=== PATIENT | female | born 1985 | race Caucasian/White ===

== ENCOUNTER 2021-03-16 08:56 | Emergency (ER) | payer OTHER, SELFPAY ==
--- NOTE | ~2021-03-16 | XR_ITS ---
EXAMINATION: XR CHEST CLINICAL INFORMATION: Cough. COMPARISON: None TECHNIQUE: 2 views of the chest were obtained. FINDINGS: No significant abnormality is noted involving the heart, lungs, mediastinum, bony thorax or soft tissues. Numerous postsurgical clips are projecting at the right upper quadrant of the abdomen. XR/XR chest 2V IMPRESSION: No radiographic evidence of pneumonia. Numerous postsurgical clips are present at right upper quadrant of the abdomen.
[2021-03-16 09:10] VITALS: BP 111/68; PULSE 82; RESP 18; TEMP 36.9; O2SAT 99; BMI 26.6
[2021-03-16 09:59] LABS: Influenza A PCR NEGATIVE (Negative); Influenza B PCR NEGATIVE (Negative); Resp Syncy Virus RNA Qual PCR NEGATIVE (Negative); SARS COV2 PCR INHOUSE NEGATIVE (Negative)
--- NOTE | 2021-03-16 10:18 | ED.URI ---
HPI - URI/Sore Throat General Chief Complaint: Upper Respiratory Symptoms Stated Complaint: flu like symptoms Time Seen by Provider: 03/16/21 09:23 Source: patient Mode of arrival: ambulatory Limitations: no limitations History of Present Illness HPI Narrative: 35-year-old female here with complaints of cough, sneezing, rhinorrhea since Sunday. No shortness of breath, chest pain, fevers, chills, sore throat, abdominal pain, vomiting or diarrhea. 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 Not currently on any medication Related Data Allergies Allergy/AdvReac Type Severity Reaction Status Date / Time aspirin [ASA] Allergy Unknown CRAP Verified 03/16/21 09:10 BLOOD bee pollen [BEE STINGS] Allergy Unknown ANAPHYLAXIS Verified 03/16/21 09:10 duloxetine [From CYMBALTA] Allergy Unknown SWELLING Verified 03/16/21 09:10 hydromorphone [From DILAUDID] Allergy Unknown ITCHY, Verified 03/16/21 09:10 VOMIT morphine [MORPHINE] Allergy Unknown SICK Verified 03/16/21 09:10 naproxen [NAPROXEN] Allergy Unknown CRAP Verified 03/16/21 09:10 BLOOD pregabalin [From LYRICA] Allergy Unknown SWELLING Verified 03/16/21 09:10 SEAFOOD Allergy Unknown UNKNOWN Uncoded 02/05/20 19:08 Review of Systems Review of Systems: Yes all other systems are reviewed and are negative Constitutional: Constitutional: Reports no additional constitutional complaints, Denies body ache(s), Denies chills, Denies fever(s), Denies headache(s) and Denies weakness Eyes: Eyes: Reports no additional eye complaints and Denies change in vision ENT: Reports system reviewed and no additional complaints, except as documented, Denies dizziness, Denies headache(s), Denies nasal congestion, Reports nasal discharge and Denies neck pain Cardiovascular: Cardiovascular: Reports no additional cardiovascular complaints, Denies chest pain, Denies leg edema and Denies dyspnea Respiratory: Respiratory: Reports no additional respiratory complaints, Reports cough and Denies dyspnea Gastrointestinal: Gastrointestinal: Reports no additional gastrointestinal complaints, Denies abdominal pain, Denies diarrhea, Denies nausea and Denies vomiting Genitourinary: Genitourinary: Reports no additional female genitourinary complaints and Denies urinary incontinence Musculoskeletal: Musculoskeletal: Reports no additional musculoskeletal complaints, Denies back pain, Denies arthralgias, Denies joint swelling, Denies neck pain, Denies numbness and Denies tingling Integumentary/Breasts: Skin/Breast: Reports system reviewed and no additional complaints, except as docu and Denies rash Neurologic: Denies Abnormal speech present, Denies dizziness, Denies headache(s), Denies numbness, Denies tingling and Denies weakness PMFSH Past Medical History Attestation statement: The following information was validated with the patient. Source: old records reviewed and nursing notes reviewed Social History Social History Advance Directives: No Patient : No Physical Exam Vital Signs: Vital Signs: Last Vital Signs Temp 98.4 F 03/16/21 09:10 Pulse 82 03/16/21 09:10 Resp 18 03/16/21 09:10 BP 111/68 03/16/21 09:10 Pulse Ox 99 03/16/21 09:10 Body Mass Index 26.6 Const: General: cooperative, healthy appearing, comfortable and no acute distress Orientation/consciousness: patient oriented x3 Limitations: no limitations HENMT: Head: Yes normal to inspection Ears: hearing grossly normal bilaterally and TM's normal bilaterally General nose exam: Normal external nose present Face and sinus: Yes normal facial exam Mouth: Normal oral and palatal mucosa present Throat: Yes posterior oropharynx normal, Yes tonsils normal and Yes uvula midline Eyes: General: appearance normal, both eyes and all related structures Pupils: Equal, round and reactive pupils present Neck: Neck: Yes normal visual inspection Chest: Chest palpation & inspection: normal inspection of the chest Resp: Effort & Inspection: normal respiratory effort Auscultation: clear to auscultation bilaterally Cardio: Rate: regular rate Rhythm: regular rhythm Peripheral pulses: Peripheral pulses 2+ throughout GI: Inspection: Yes normal to inspection Palpation (GI): Soft to palpation and nontender Auscultation: normal bowel sounds Back/Spine/Pelvis: Thoracic/Lumbar Spine: thoracic and lumbar spine normal to inspection Skin: General skin exam: no rashes or lesions noted Neuro: General: patient oriented x3, no focal motor deficits and normal sensation to monofilament Cranial nerves: Yes Equal, round and reactive pupils present Cognition (Neuro): normal cognition Speech: No Abnormal speech present Gait exam (Neuro): Normal gait present Motor exam (neuro): 5/5 motor strength present throughout Extrem: General: Yes normal to inspection, Yes no pedal edema and Yes no calf tenderness Course Course Course Narrative: 35-year-old female here with complaints of cough, sneezing and rhinorrhea since Sunday. No shortness of breath or chest pain or fever. Patient is well-appearing. Afebrile. Exam is benign. Will check COVID screen. History of bronchitis so will check chest x-ray. 1020-COVID screen is negative. Chest x-ray shows no acute finding. Likely viral URI. Vitals are stable lungs are clear speaking full sentences. Will discharge home with supportive care. Reviewed worrisome signs and symptoms of when to return to the emergency department. Comfortable discharge home. MDM - URI/Sore Throat Differential Diagnosis Differential diagnosis: Likely upper respiratory infection Medical Records Attestation: I reviewed the patient's medical records. Lab Data Attestation: I reviewed the patient's lab results. Labs: Lab Results 03/16/21 Range/Units 09:15 Coronavirus (PCR) NEGATIVE (Negative) Influenza Type A (PCR) NEGATIVE (Negative) Influenza Type B (PCR) NEGATIVE (Negative) RSV RNA Qual (PCR) NEGATIVE (Negative) Imaging Data Chest x-ray: Attestation: I personally reviewed and interpreted this imaging study as follows: Radiologist's impression: EXAMINATION: XR CHEST CLINICAL INFORMATION: Cough. COMPARISON: None TECHNIQUE: 2 views of the chest were obtained. FINDINGS: No significant abnormality is noted involving the heart, lungs, mediastinum, bony thorax or soft tissues. Numerous postsurgical clips are projecting at the right upper quadrant of the abdomen. XR/XR chest 2V IMPRESSION: No radiographic evidence of pneumonia. Numerous postsurgical clips are present at right upper quadrant of the abdomen. Discharge Plan Discharge Clinical Impression: Upper respiratory infection Patient Disposition: Home, Self-Care Instructions: Upper Respiratory Infection (ED), Viral Syndrome (ED) Additional Instructions: Increase fluids, rest Take Motrin or Tylenol if able as needed for pain or fever Your COVID screen and chest x-ray are normal Seek additional care for shortness of breath, chest pain, fever greater than 100.4 Referrals: Physician,None [Primary Care Provider] - 2 days Stand Alone Forms: Work/School Release
== END 2021-03-16 10:44 | disposition home or self-care (01) ==
PROVIDERS: Emergency Provider Emergency Medicine
DX: J06.9 Acute upper respiratory infection, unspecified (principal); Z20.822 Contact with and (suspected) exposure to COVID-19
CPT/HCPCS: 0241U; 36415; 71046; 99283

== ENCOUNTER 2021-07-13 11:04 | Emergency (ER) | payer BC, OTHER, SELFPAY ==
--- NOTE | ~2021-07-13 | XR_ITS ---
EXAMINATION: XR RIBS, RIGHT CLINICAL INFORMATION: Right rib pain COMPARISON: Previous chest x-ray February 2021 TECHNIQUE: 3 views of the right ribs and one view of the chest were obtained. FINDINGS: Lungs are clear. No consolidation, pneumothorax, or pleural effusion. The cardiomediastinal silhouette and pulmonary vasculature are normal. There are surgical clips under the right hemidiaphragm Osseous structures are unremarkable. Ribs are intact. No fractures are identified. XR/XR ribs RT min 3V w CXR1V IMPRESSION: Normal-appearing ribs. No evidence for acute disease in the chest.
[2021-07-13 11:38] VITALS: BP 111/50; PULSE 72; RESP 18; TEMP 36.4; O2SAT 96; BMI 28.6
--- NOTE | 2021-07-13 11:58 | ED_ITS ---
HPI - General Adult General Chief complaint: General Medical Stated complaint: right side pain/lower abd pain Time Seen by Provider: 07/13/21 11:55 Source: patient Mode of arrival: ambulatory Limitations: no limitations History of Present Illness HPI narrative: 35-year-old female came in for evaluation of her right-sided a body ache. 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 No blunt trauma to the right side of the abdomen. Patient is here mainly to check on post surgery. Past surgical history is cholecystectomy, partial hepatic donation surgery, total hysterectomy. Related Data Allergies Allergy/AdvReac Type Severity Reaction Status Date / Time aspirin [ASA] Allergy Unknown CRAP Verified 07/13/21 11:41 BLOOD bee pollen [BEE STINGS] Allergy Unknown ANAPHYLAXIS Verified 07/13/21 11:41 duloxetine [From CYMBALTA] Allergy Unknown SWELLING Verified 07/13/21 11:41 hydromorphone [From DILAUDID] Allergy Unknown ITCHY, Verified 07/13/21 11:41 VOMIT morphine [MORPHINE] Allergy Unknown SICK Verified 07/13/21 11:41 naproxen [NAPROXEN] Allergy Unknown CRAP Verified 07/13/21 11:41 BLOOD pregabalin [From LYRICA] Allergy Unknown SWELLING Verified 07/13/21 11:41 SEAFOOD Allergy Unknown UNKNOWN Uncoded 02/05/20 19:08 Review of Systems Review of Systems: All other systems are reviewed and are negative Constitutional: Reports as per HPI and Reports no additional constitutional complaints Eyes: Reports as per HPI and Reports no additional eye complaints Reports system reviewed and no additional complaints, except as documented Cardiovascular: Reports as per HPI and Reports no additional cardiovascular complaints Respiratory: Reports as per HPI and Reports no additional respiratory complaints Gastrointestinal: Reports as per HPI and Reports no additional gastrointestinal complaints Genitourinary: Reports no additional female genitourinary complaints Musculoskeletal: Reports no additional musculoskeletal complaints Skin/Breast: Reports system reviewed and no additional complaints, except as docu Psychiatric: Reports no additional psychiatric complaints Endocrine: Reports no additional endocrine complaints Hematologic/Lymphatic: Reports no additional hematologic/lymphatic complaints Allergic/Immunologic: Reports no additional allergic/immunologic complaints Reports system reviewed and no additional complaints, except as documented and Reports Abnormal speech present [facility] Social History Social History Patient Tobacco Use Status: Former Tobacco user Smoked in Last 30 Days: No Use of substances other than those prescribed or required for medical reasons: No Advance Directives: No Advance Directives Information Provided: No Patient : No Physical Exam ED Vital Signs: Vital Signs - 24 hr 07/13/21 11:38 07/13/21 12:32 Temperature 97.6 F 97.8 F Pulse Rate 72 63 Respiratory Rate 18 16 Blood Pressure 111/50 L 108/48 L Pulse Oximetry 96 100 BMI result Body Mass Index 28.6 Vital signs have been reviewed as appeared to be correct. Blood pressure no rmal. Heart rate normal. Respiration rate normal. Temperature normal. Oxygen saturation normal. Appearance: Alert. Oriented X3. No acute distress. Head: Normal external exam. Normocephalic. Atraumatic. No Doe signs noted. No raccoon eyes noted Eyes: PERRLA. EOMI. Conjunctiva and sclera normal. Eyelids normal. ENT: TM's Normal. Pharynx normal. Uvula midline. Moist mucous membranes. No trismus noted. No drooling noted. No muffled voice noted. Neck: Normal inspection. Neck supple. FROM. No adenopathy. Thyroid Normal. No meningeal signs. No neck mass noted. CVS: Normal heart rate and rhythm. Heart sound normal. No murmurs noted. Pulses normal throughout. Respiratory: No respiratory distress. Painless inspiration. Breath sounds normal. No wheezes/rales/rhonchi noted. Chest nontender. No accessory muscle usage noted or decreased air movement noted. Abdomen: Soft and nontender. Bowel sounds normal in all 4 quadrants. No distention noted. No organomegaly noted. No visible injury noted. Back: No CVA tenderness. Full range of motion noted. Skin: Skin warm and dry. Normal skin color. Normal skin turgor. No rashes/lesions/lacerations noted. Extremities: No lower extremity edema. Extremities exhibit normal range of motion. Extremities nontender. Neuro: Oriented X 3. Cranial nerve exam: II-XII are grossly intact No motor deficit. No sensory deficit. Reflexes normal. Course Course Course Narrative: Assessment and plan. 35-year-old female came in for right-sided chest pain after exercising at the gym, patient status post partial liver donation 7 months ago was not exercising as per surgeon instruction, patient started to exercise recently when she started to have the pain, x-rays unremarkable, exam is unremarkable for point of tenderness, labs are unremarkable except slight elevation of LFTs, patient was instructed to call the transplant surgeon and arrange for the 9 months follow-up postoperative. Medical Decision Making Lab Data Lab results reviewed: Yes I reviewed the patient's lab results. Result diagrams: 07/13/21 12:29 07/13/21 12:29 Labs: Lab Results 07/13/21 07/13/21 Range/Units 12:29 12:29 WBC 4.1 L (4.8-10.8) X10*3/uL RBC 3.84 L (4.20-5.50) X10*6/uL Hgb 11.4 L (12.0-16.0) g/dl Hct 35.4 L (37.0-47.0) % MCV 92.2 (80.0-98.0) fL MCH 29.7 (27.0-33.0) pg MCHC 32.2 (31.0-35.0) g/dl RDW 13.8 (11.0-16.0) % Plt Count 202 (160-400) X10*3/uL MPV 8.9 L (9.4-12.3) fL Immature Gran % (Auto) 0.2 (0.0-0.4) % Neut % (Auto) 46.1 (45-73) % Lymph % (Auto) 40.5 H (20-40) % [place] % (Auto) 10.0 (2-11) % Eos % (Auto) 2.7 (0-4) % Baso % (Auto) 0.5 (0-2) % Lymph # (Auto) 1.7 (1.2-4.9) X10*3/uL [place] # (Auto) 0.4 (0.1-1.2) X10*3/uL Eos # (Auto) 0.1 (0.0-0.4) X10*3/uL Baso # (Auto) 0.0 (0.0-0.2) X10*3/uL Abs Immat Gran (auto) 0.01 (0.00-0.03) X10*3/uL Absolute Neuts (auto) 1.9 L (2.0-8.3) x10*3/uL Absolute Nucleated RBC 0.000 (0.0-0.012) X10*3/uL Nucleated RBC % (auto) 0.0 (0.0-0.2) /100WBC Sodium 142 (135-145) mmol/L Potassium 4.1 (3.3-5.1) mmol/L Chloride 107 (96-108) mmol/L Carbon Dioxide 31 H (22-29) mmol/L Anion Gap 8 L (12-20) BUN 7 L (9-16) mg/dL Creatinine 0.72 (0.5-1.4) mg/dL Estim Creat Clear Calc 99.6 Estimated GFR > 60 Random Glucose 85 (60-115) mg/dL Calcium 9.1 (8.4-10.2) mg/dL Total Bilirubin 0.5 (0.0-1.0) mg/dL Direct Bilirubin 0.2 (0.0-0.5) mg/dL AST 46 H (5-31) U/L ALT 54 H (0-31) U/L Alkaline Phosphatase 79 (39-117) U/L Total Protein 6.2 L (6.5-8.0) g/dL Albumin 4.0 (3.5-5.0) g/dL Lipase 34 (8-78) U/L Imaging Data Right ribs/chest x-ray.: Attestation: I personally reviewed and interpreted this imaging study as follows: Radiologist's impression: Normal-appearing ribs. No evidence for acute disease in the chest. Discharge Plan Discharge Clinical Impression: Chest wall muscle strain Patient Disposition: Home, Self-Care Instructions: Muscle Strain (DC) Referrals: Physician,None [Primary Care Provider] - 2 days Stand Alone Forms: Work/School Release
[2021-07-13 12:32] VITALS: BP 108/48; PULSE 63; RESP 16; TEMP 36.6; O2SAT 100
[2021-07-13 12:34] LABS: MANUAL DIFF FLAG NO
[2021-07-13 12:37] LABS: Basophils Percent Auto 0.5 % (0-2); Eosinophils Absolute Auto 0.1 X10*3/uL (0.0-0.4); Eosinophils Percent Auto 2.7 % (0-4); Hematocrit 35.4 % (37.0-47.0); Hemoglobin 11.4 g/dl (12.0-16.0); Imm Gran Abs Auto 0.01 X10*3/uL (0.00-0.03); Imm Gran Pct Auto 0.2 % (0.0-0.4); Lymphocytes Absolute Auto 1.7 X10*3/uL (1.2-4.9); Lymphocytes Percent Auto 40.5 % (20-40); Mean Corpuscular HGB Conc 32.2 g/dl (31.0-35.0); Mean Corpuscular Hemoglobin 29.7 pg (27.0-33.0); Mean Corpuscular Volume 92.2 fL (80.0-98.0); Mean Platelet Volume 8.9 fL (9.4-12.3); Monocytes Absolute Auto 0.4 X10*3/uL (0.1-1.2); Neutrophils Absolute Auto 1.9 x10*3/uL (2.0-8.3); Neutrophils Percent Auto 46.1 % (45-73); Platelet Count 202 X10*3/uL (160-400); Red Blood Count 3.84 X10*6/uL (4.20-5.50); Red Cell Distribution Width 13.8 % (11.0-16.0); White Blood Count 4.1 X10*3/uL (4.8-10.8)
[2021-07-13 12:52] LABS: Alanine Aminotransferase 54 U/L (0-31); Alkaline Phosphatase 79 U/L (39-117); Anion Gap 8 (12-20); Aspartate Amino Transferase 46 U/L (5-31); Bilirubin Direct 0.2 mg/dL (0.0-0.5); Bilirubin Total 0.5 mg/dL (0.0-1.0); Blood Urea Nitrogen 7 mg/dL (9-16); Calcium 9.1 mg/dL (8.4-10.2); Carbon Dioxide 31 mmol/L (22-29); Chloride 107 mmol/L (96-108); Creatinine Clr Calc Pharmacy 99.6; Estimated Glomerular Filt Rate > 60; Glucose Random 85 mg/dL (60-115); Lipase 34 U/L (8-78); Potassium 4.1 mmol/L (3.3-5.1); Sodium 142 mmol/L (135-145); Total Protein 6.2 g/dL (6.5-8.0)
== END 2021-07-13 14:11 | disposition home or self-care (01) ==
PROVIDERS: Emergency Provider Emergency Medicine
DX: Z52.6 Liver donor (principal); S29.011A Strain of muscle and tendon of front wall of thorax, initial encounter; X50.3XXA Overexertion from repetitive movements, initial encounter; Y93.B9 Activity, other involving muscle strengthening exercises; Y92.39 Other specified sports and athletic area as the place of occurrence of the external cause; Y99.9 Unspecified external cause status
CPT/HCPCS: 36415; 71101; 80048; 80076; 83690; 85025; 99283; 99284

== ENCOUNTER 2021-11-01 23:15 | Emergency (ER) | payer MEDICAID, SELFPAY ==
[2021-11-02 00:15] VITALS: BP 122/64; PULSE 69; RESP 18; TEMP 36.6; O2SAT 98; BMI 30.5
[2021-11-02 01:10] LABS: Mean Corpuscular HGB Conc 33.3 g/dl (31.0-35.0); Mean Platelet Volume 9.2 fL (9.4-12.3); Platelet Count 213 X10*3/uL (160-400); Red Blood Count 3.87 X10*6/uL (4.20-5.50); Red Cell Distribution Width 12.9 % (11.0-16.0); White Blood Count 4.8 X10*3/uL (4.8-10.8)
--- NOTE | 2021-11-02 01:23 | ED.GENADULT ---
HPI - General Adult General Chief complaint: General Medical Stated complaint: post surgery concerns Time Seen by Provider: 11/02/21 01:18 Source: patient Mode of arrival: ambulatory Limitations: no limitations History of Present Illness HPI narrative: Patient comes to the emergency room complaining of new onset depression. Patient states it has been going on for several weeks. The last 2 weeks, patient has been feeling depressed, no anxiety, no suicidal or homicidal ideation. Patient states that about 1 year she donated part of her liver. Patient never had her follow-up checkup and she is concerned that this may be liver related. Patient has no abdominal pain, scar healed well. Related Data Allergies Allergy/AdvReac Type Severity Reaction Status Date / Time aspirin [ASA] Allergy Unknown CRAP Verified 07/13/21 11:41 BLOOD bee pollen [BEE STINGS] Allergy Unknown ANAPHYLAXIS Verified 07/13/21 11:41 duloxetine [From CYMBALTA] Allergy Unknown SWELLING Verified 07/13/21 11:41 hydromorphone [From DILAUDID] Allergy Unknown ITCHY, Verified 07/13/21 11:41 VOMIT morphine [MORPHINE] Allergy Unknown SICK Verified 07/13/21 11:41 naproxen [NAPROXEN] Allergy Unknown CRAP Verified 07/13/21 11:41 BLOOD pregabalin [From LYRICA] Allergy Unknown SWELLING Verified 07/13/21 11:41 SEAFOOD Allergy Unknown UNKNOWN Uncoded 02/05/20 19:08 Review of Systems Review of Systems: Constitutional : No Weight loss, No Fever, No Chills, No Night Sweats, complaining fatigue ENT/Mouth : No Hearing loss, No Ear Pain, No Nasal Congestion, No Sinus Pain, No Hoarseness, No sore throat, No Rhinorrhea, No Swallowing Difficulty Eyes: No Eye Pain, No Swelling, No Redness, No Foreign Body, No Discharge, No Vision Changes Cardiovascular : No Chest Pain, No SOB, No Dyspnea on Exertion, No Orthopnea, No Edema, No Palpitations Respiratory : No Cough, No Sputum, No Wheezing, No Smoke Exposure, No Dyspnea Gastrointestinal : No Nausea, No Vomiting, No Diarrhea, No Constipation, No abdominal Pain, No Hematochezia, No Melena Genitourinary : no irregular bleeding, No Dysuria, No Urinary Frequency, No Hematuria, No Urinary Incontinence, No Urgency, No Flank Pain, No Urinary Flow Changes, No Hesitancy Musculoskeletal : No joint pain, No Myalgias, No Joint Swelling Skin : No Skin Lesions, No rash Neuro : No Weakness, No Numbness, No Paresthesias, No Loss of Consciousness, No Dizziness, No Headache Psych : No Anxiety/Panic, complaining of feeling depressed, No SI/HI/AH/VH, No Social Issues, Heme/Lymph: No Bruising, No Bleeding,No Lymphadenopathy Endocrine : No Polyuria, No Polydipsia, No Temperature Intolerance [facility] Social History Social History Patient Tobacco Use Status: Former Tobacco user Advance Directives: No Physical Exam ED Vital Signs: Vital Signs - 24 hr 11/02/21 00:15 Temperature 97.8 F Pulse Rate 69 Respiratory Rate 18 Blood Pressure 122/64 Pulse Oximetry 98 Oxygen Delivery Method Room Air BMI result Body Mass Index 30.5 Const Other: Appearance: Alert. Oriented X3. No acute distress. Eyes: Pupils equal, round and reactive to light. ENT: Pharynx normal. Neck: Normal inspection. Neck supple. No lymph nodes noted. No crepitus CVS: Normal heart rate and rhythm. Pulses normal. Normal S1 and S2 Respiratory: No respiratory distress. Breath sounds normal. No Wheezing. No rales Abdomen: Soft and nontender. No rigidity. No distention. Skin: Skin warm and dry. Normal skin color. Normal skin turgor. Extremities: No lower extremity edema. No Lacerations. No Rash Neuro: Oriented X 3. No motor deficit. No sensory deficit. Moving all extremities. No slurred speech. CN 2 through 12 grossly intact Psych: calm, cooperative, normal affect Course Course Course Narrative: Patient's labs are pending. LFT stable. Patient was given resources for outpatient therapy Medical Decision Making Lab Data Result diagrams: 11/02/21 01:00 11/02/21 01:00 Labs: Lab Results 11/02/21 11/02/21 Range/Units 01:00 01:00 WBC 4.8 (4.8-10.8) X10*3/uL RBC 3.87 L (4.20-5.50) X10*6/uL Hgb 12.0 (12.0-16.0) g/dl Hct 36.0 L (37.0-47.0) % MCV 93.0 (80.0-98.0) fL MCH 31.0 (27.0-33.0) pg MCHC 33.3 (31.0-35.0) g/dl RDW 12.9 (11.0-16.0) % Plt Count 213 (160-400) X10*3/uL MPV 9.2 L (9.4-12.3) fL Absolute Nucleated RBC 0.000 (0.0-0.012) X10*3/uL Nucleated RBC % (auto) 0.0 (0.0-0.2) /100WBC Sodium 142 (135-145) mmol/L Potassium 4.0 (3.3-5.1) mmol/L Chloride 108 (96-108) mmol/L Carbon Dioxide 28 (22-29) mmol/L Anion Gap 10 L (12-20) BUN 9 (9-16) mg/dL Creatinine 0.76 (0.5-1.4) mg/dL Estim Creat Clear Calc 96.6 Estimated GFR > 60 Random Glucose 90 (60-115) mg/dL Calcium 9.0 (8.4-10.2) mg/dL Total Bilirubin 0.4 (0.0-1.0) mg/dL AST 30 (5-31) U/L ALT 33 H (0-31) U/L Alkaline Phosphatase 58 D (39-117) U/L Total Protein 6.7 (6.5-8.0) g/dL Albumin 4.1 (3.5-5.0) g/dL Discharge Plan Discharge Clinical Impression: Depression Patient Disposition: Home, Self-Care Instructions: Depression (ED) Additional Instructions: Please follow-up with your primary care physician tomorrow. If you have any worsening or new symptoms, please return to the emergency room or call 911
[2021-11-02 01:42] LABS: Alanine Aminotransferase 33 U/L (0-31); Albumin Level 4.1 g/dL (3.5-5.0); Alkaline Phosphatase 58 U/L (39-117); Anion Gap 10 (12-20); Aspartate Amino Transferase 30 U/L (5-31); Bilirubin Total 0.4 mg/dL (0.0-1.0); Blood Urea Nitrogen 9 mg/dL (9-16); Carbon Dioxide 28 mmol/L (22-29); Chloride 108 mmol/L (96-108); Creatinine Clr Calc Pharmacy 96.6; Estimated Glomerular Filt Rate > 60; Glucose Random 90 mg/dL (60-115); Sodium 142 mmol/L (135-145); Total Protein 6.7 g/dL (6.5-8.0)
[2021-11-02 01:50] VITALS: BP 112/69; PULSE 116; RESP 18; TEMP 36.4; O2SAT 98
--- NOTE | 2021-11-02 01:59 | PC.NURSE ---
pt a&o, no sob or chest pain. Pt able to ambulate with a steady gait. Reviewed discharge instructions with pt. pt verbalized understanding.
== END 2021-11-02 02:02 | disposition home or self-care (01) ==
PROVIDERS: Emergency Provider Emergency Medicine
DX: F32.A Depression, unspecified (principal); Z52.6 Liver donor
CPT/HCPCS: 36415; 80053; 85027; 99283; 99284

== ENCOUNTER 2022-02-17 15:53 | Emergency (ER) | payer MEDICAID, SELFPAY ==
--- NOTE | ~2022-02-17 | MR_ITS ---
EXAMINATION: MR BRAIN WITHOUT CONTRAST CLINICAL INFORMATION: Left facial droop and left arm weakness COMPARISON: Same day CT head without contrast TECHNIQUE: Multiplanar multisequence MR imaging of the brain was obtained without intravenous contrast. FINDINGS: There is no acute infarct on diffusion-weighted imaging. There is no intracranial hemorrhage on iron-sensitive imaging. No extra-axial collection or mass effect/herniation. Normal parenchymal signal characteristics. No hydrocephalus. The ventricles are normal in morphology and size. The major flow voids at the skull base are preserved. The midline structures are normal. The cerebellar tonsils are normally positioned. The craniocervical junction is normal. Marrow signal is within normal limits. The visualized soft tissues are without significant abnormality. No signal abnormality within the paranasal sinuses or within the mastoid air cells. There is suggestion of a left scleral band in place with somewhat abnormal morphology of the left globe. MR/MR head/brain wo con IMPRESSION: No acute infarct or other acute intracranial abnormality
--- NOTE | ~2022-02-17 | CT_ITS ---
CT head/brain wo IV con CLINICAL INFORMATION: Reason for Exam facial droop, left arm weakness COMPARISON: Prior CT 2017 TECHNIQUE: Department standard protocol. This CT examination was performed using dose optimization techniques as appropriate, variously including the following: *Automated exposure control *Adjustment of mA and/or kV according to patient size (this includes techniques or standardized protocols for targeted exams where dose is matched to indication/reason for exam; i.e. extremities or head) *Use of iterative reconstruction technique DLP: mGy-cm FINDINGS: CEREBRAL HEMISPHERES: There is no evidence of intra-axial or extra-axial mass, hemorrhage or acute infarct. BRAIN PARENCHYMA: Normal segal-white matter differentiation. SUBDURAL SPACE: No bleed. BASAL GANGLIA AND PINEAL GLAND: Unremarkable VENTRICLES: Symmetric and normal in size. CEREBELLUM AND BRAINSTEM: No space-occupying mass, hemorrhage or acute infarct. CEREBELLOPONTINE ANGLES: No lesion found. ORBITS: Calcification around the left lobe chronic unchanged. VESSELS: Unremarkable SKULL BASE: Unremarkable INCLUDED SINUSES AT SKULL BASE: Clear SKULL AND SKIN: No fracture or bone lesion found. CT/CT head/brain wo IV con IMPRESSION: No CT evidence of intracranial space-occupying mass, bleed or infarct. Normal CT scan does not rule out the possibility of hyperacute infarct in the first 12 hours. If patient symptoms persist may consider correlation with MRI, which is more sensitive for early acute infarct.
[2022-02-17 15:55] VITALS: BP 105/58; PULSE 71; RESP 18; O2SAT 95; BMI 29.9
--- NOTE | 2022-02-17 16:26 | ED_ITS ---
HPI - Neuro Symptoms/Deficit General Chief Complaint: Neuro Symptoms/Deficit Stated Complaint: cereal palsy left arm numb Time Seen by Provider: 02/17/22 16:11 Source: patient Mode of arrival: ambulatory Limitations: no limitations History of Present Illness HPI Narrative: 36-year-old female presents with approximately 24 hours of left-sided facial numbness and paralysis, slurred speech, left arm weakness and flaccidity with left leg numbness and tingling. Patient states that she is able to ambulate, and does not report any symptoms of cauda equina. She does report a recent surgical procedure that can cause numbness to the left arm. She has a history of Rueda's palsy, and states that her face feels the same but is concerned about her slurred speech. Onset (ago): hour(s) (20) Timing confirmed by: other (self) Location: speech, left face and left arm History of same: Yes Severity: moderate Quality: weak Relieving factors: none Exacerbating factors: none Context: gradual onset On Anticoagulants: No Associated symptoms: denies other symptoms Treatments Prior to Arrival: none Related Data Previous Rx's Medication Instructions Recorded epinephrine 0.3 mg/0.3 mL 0.3 mg (0.3 mL) IM Q4H PRN 11/03/21 injection, auto-injector (EpiPen anaphylaxis #2 ea 2-Alec) erythromycin 5 mg/gram (0.5 %) eye 0.5 inch ophthalmic (eye) QID 10 02/17/22 ointment days #3.5 grams prednisone 20 mg tablet 60 mg PO DAILY 10 days #30 tabs 02/17/22 valacyclovir 1 gram tablet 1,000 mg PO TID 10 days #30 tabs 02/17/22 cefuroxime axetil 500 mg tablet 500 mg PO Q12H 7 days #14 tabs 02/18/22 Allergies Allergy/AdvReac Type Severity Reaction Status Date / Time aspirin [ASA] Allergy Unknown CRAP Verified 07/13/21 11:41 BLOOD bee pollen [BEE STINGS] Allergy Unknown ANAPHYLAXIS Verified 07/13/21 11:41 duloxetine [From CYMBALTA] Allergy Unknown SWELLING Verified 07/13/21 11:41 hydromorphone [From DILAUDID] Allergy Unknown ITCHY, Verified 07/13/21 11:41 VOMIT morphine [MORPHINE] Allergy Unknown SICK Verified 07/13/21 11:41 naproxen [NAPROXEN] Allergy Unknown CRAP Verified 07/13/21 11:41 BLOOD pregabalin [From LYRICA] Allergy Unknown SWELLING Verified 07/13/21 11:41 SEAFOOD Allergy Unknown UNKNOWN Uncoded 02/05/20 19:08 Review of Systems Review of Systems: Constitutional: Positive facial droop to the left side, No Fever, No Chills ENT/Mouth: No Ear Pain, No Hoarseness, No sore throat Eyes: No Eye Pain, No Swelling, No Redness, No Foreign Body Cardiovascular: No Chest Pain, No SOB Respiratory: No Cough, No Dyspnea Gastrointestinal: No Nausea, No Vomiting, No Diarrhea, No abdominal Pain Genitourinary: No Dysuria, No Hematuria Musculoskeletal: No joint pain, No Myalgias, No Joint Swelling Skin: No Skin lacerations, No rash Neuro: Positive left arm and left leg Weakness, positive Numbness, positive Paresthesias, No Loss of Consciousness, No Dizziness, No Headache Psych: No Anxiety/Panic, No Depression Heme/Lymph: no easy bruising, no Lymphadenopathy Endocrine: No Polyuria, No Polydipsia Yes all other systems are reviewed and are negative [facility] Past Medical History Attestation statement: The following information was validated with the patient. Source: old records reviewed Social History Social History Patient Tobacco Use Status: Former Tobacco user Advance Directives: No Advance Directives Information Provided: No Physical Exam Vital Signs: Vital Signs: Last Vital Signs Temp 98.4 F 02/17/22 20:24 Pulse 50 02/17/22 20:24 Resp 17 02/17/22 20:24 BP 90/52 L 02/17/22 20:24 Pulse Ox 99 02/17/22 20:24 O2 Del Method 02/17/22 20:24 BMI result Body Mass Index 29.9 Appearance: Alert. Oriented X3. No acute distress. Eyes: Pupils equal, round and reactive to light. ENT: Pharynx normal. Positive facial droop with inability to close the left eye, inability to furrow left brow. Neck: Normal inspection. Neck supple. CVS: Normal heart rate and rhythm. Pulses normal. Respiratory: No respiratory distress. Breath sounds normal. Abdomen: Soft and nontender. Skin: Skin warm and dry. Normal skin color. Normal skin turgor. Extremities: No lower extremity edema. 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 Strength 5/5 to the lower extremities. Gait is balanced and coordinated. Neuro: No motor deficit. No sensory deficit. Course Course Course Narrative: 36-year-old female presents with approximately 24 hours of left-sided facial drooping, left arm numbness and weakness, and left lower extremity tingling with which she describes as slurred speech. 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 She reports a recent procedure to the left sternocleidomastoid muscle which may be contributing to her left arm numbness and weakness. While she describes some paresthesias to the left lower extremity, she does not describe loss of sensation or function. While facial symptoms are most consistent with Rueda's palsy, with unilateral facial droop, speech difficulty, and inability to furrow her brow, NIH stroke scale is 3, will order CT scan of head. CBC and Chem 7 are negative for acute findings. Urinalysis is positive for UTI. CT scan of head indicates normal exam however MRI is recommended. I did discuss this plan with patient, she agrees to the study. 20:30 MRI is negative for acute findings requiring emergent intervention. Plan of care is to discharge home and treat for Rueda's palsy as well as UTI. Patient verbalized understanding of and agrees to plan of care discharge home. Verbalized understanding of signs symptoms indicating need for emergent interve ntion. MDM - Neuro Symptoms/Deficit Differential Diagnosis Differential diagnosis: Likely subarachnoid hemorrhage, peripheral neuropathy, cerebrovascular accident, multiple sclerosis and transient cerebral ischemia Medical Records Attestation: I reviewed the patient's medical records. Lab Data Attestation: I reviewed the patient's lab results. Result diagrams: 02/17/22 16:41 02/17/22 16:41 Labs: Lab Results 02/17/22 02/17/22 02/17/22 Range/Units 16:41 16:41 16:41 WBC 4.6 L (4.8-10.8) X10*3/uL RBC 3.94 L (4.20-5.50) X10*6/uL Hgb 12.3 (12.0-16.0) g/dl Hct 36.4 L (37.0-47.0) % MCV 92.4 (80.0-98.0) fL MCH 31.2 (27.0-33.0) pg MCHC 33.8 (31.0-35.0) g/dl RDW 12.7 (11.0-16.0) % Plt Count 224 (160-400) X10*3/uL MPV 9.7 (9.4-12.3) fL Immature Gran % (Auto) 0.2 (0.0-0.4) % Neut % (Auto) 48.7 (45-73) % Lymph % (Auto) 40.3 H (20-40) % [place] % (Auto) 7.7 (2-11) % Eos % (Auto) 2.4 (0-4) % Baso % (Auto) 0.7 (0-2) % Lymph # (Auto) 1.8 (1.2-4.9) X10*3/uL [place] # (Auto) 0.4 (0.1-1.2) X10*3/uL Eos # (Auto) 0.1 (0.0-0.4) X10*3/uL Baso # (Auto) 0.0 (0.0-0.2) X10*3/uL Abs Immat Gran (auto) 0.01 (0.00-0.03) X10*3/uL Absolute Neuts (auto) 2.2 (2.0-8.3) x10*3/uL Absolute Nucleated RBC 0.000 (0.0-0.012) X10*3/uL Nucleated RBC % (auto) 0.0 (0.0-0.2) /100WBC PT (10.0-13.1) SEC INR (0.9-1.1) APTT 29.1 (26.0-36.4) SEC Sodium 142 (135-145) mmol/L Potassium 3.6 (3.3-5.1) mmol/L Chloride 108 (96-108) mmol/L Carbon Dioxide 23 (22-29) mmol/L Anion Gap 15 (12-20) BUN 8 L (9-16) mg/dL Creatinine 0.75 (0.5-1.4) mg/dL Estim Creat Clear Calc 96.9 Estimated GFR > 60 Random Glucose 111 (60-115) mg/dL Calcium 9.3 (8.4-10.2) mg/dL Total Bilirubin 0.3 (0.0-1.0) mg/dL Direct Bilirubin < 0.2 (0.0-0.5) mg/dL AST 23 (5-31) U/L ALT 25 (0-31) U/L Alkaline Phosphatase 53 (39-117) U/L Total Protein 6.8 (6.5-8.0) g/dL Albumin 4.2 (3.5-5.0) g/dL Lipase 57 (8-78) U/L Urine Color Urine Appearance Urine pH (5.0-9.0) Ur Specific [place] (1.005-1.025) Urine Protein (Neg-Trace) mg/dL Urine Glucose (UA) (Negative) mg/dL Urine Ketones (Negative) mg/dL Urine Blood (Negative) Urine Nitrite (Negative) Ur Leukocyte Esterase (Negative) Urine RBC (0-2) /HPF Urine WBC (0-5) /HPF Ur Squamous Epith Cells (0-2) /HPF Urine Bacteria (None Seen) Hyaline Casts (0-2) /LPF 02/17/22 02/17/22 Range/Units 16:41 18:58 WBC (4.8-10.8) X10*3/uL RBC (4.20-5.50) X10*6/uL Hgb (12.0-16.0) g/dl Hct (37.0-47.0) % MCV (80.0-98.0) fL MCH (27.0-33.0) pg MCHC (31.0-35.0) g/dl RDW (11.0-16.0) % Plt Count (160-400) X10*3/uL MPV (9.4-12.3) fL Immature Gran % (Auto) (0.0-0.4) % Neut % (Auto) (45-73) % Lymph % (Auto) (20-40) % [place] % (Auto) (2-11) % Eos % (Auto) (0-4) % Baso % (Auto) (0-2) % Lymph # (Auto) (1.2-4.9) X10*3/uL [place] # (Auto) (0.1-1.2) X10*3/uL Eos # (Auto) (0.0-0.4) X10*3/uL Baso # (Auto) (0.0-0.2) X10*3/uL Abs Immat Gran (auto) (0.00-0.03) X10*3/uL Absolute Neuts (auto) (2.0-8.3) x10*3/uL Absolute Nucleated RBC (0.0-0.012) X10*3/uL Nucleated RBC % (auto) (0.0-0.2) /100WBC PT 10.9 (10.0-13.1) SEC INR 1.0 (0.9-1.1) APTT (26.0-36.4) SEC Sodium (135-145) mmol/L Potassium (3.3-5.1) mmol/L Chloride (96-108) mmol/L Carbon Dioxide (22-29) mmol/L Anion Gap (12-20) BUN (9-16) mg/dL Creatinine (0.5-1.4) mg/dL Estim Creat Clear Calc Estimated GFR Random Glucose (60-115) mg/dL Calcium (8.4-10.2) mg/dL Total Bilirubin (0.0-1.0) mg/dL Direct Bilirubin (0.0-0.5) mg/dL AST (5-31) U/L ALT (0-31) U/L Alkaline Phosphatase (39-117) U/L Total Protein (6.5-8.0) g/dL Albumin (3.5-5.0) g/dL Lipase (8-78) U/L Urine Color Yellow Urine Appearance Cloudy Urine pH 7.0 (5.0-9.0) Ur Specific [place] 1.020 (1.005-1.025) Urine Protein Negative (Neg-Trace) mg/dL Urine Glucose (UA) Negative (Negative) mg/dL Urine Ketones Negative (Negative) mg/dL Urine Blood Negative (Negative) Urine Nitrite Positive H (Negative) Ur Leukocyte Esterase Trace H (Negative) Urine RBC 0-2 (0-2) /HPF Urine WBC 0-5 (0-5) /HPF Ur Squamous Epith Cells 3-5 (0-2) /HPF Urine Bacteria 4+ (None Seen) Hyaline Casts 0-2 (0-2) /LPF Imaging Data MRI - head: Attestation: I personally reviewed and interpreted this imaging study as follows: Radiologist's impression: FINDINGS: There is no acute infarct on diffusion-weighted imaging.? There is no intracranial hemorrhage on iron-sensitive imaging.? No extra-axial collection or mass effect/herniation.? Normal parenchymal signal characteristics.? No hydrocephalus.? The ventricles are normal in morphology and size. The major flow voids at the skull base are preserved. The midline structures are normal.? The cerebellar tonsils are normally positioned.? The craniocervical junction is normal.? Marrow signal is within normal limits. The visualized soft tissues are without significant abnormality.? No signal abnormality within the paranasal sinuses or within the mastoid air cells. There is suggestion of a left scleral band in place with somewhat abnormal morphology of the left globe. MR/MR head/brain wo con IMPRESSION: ? No acute infarct or other acute intracranial abnormality ? NIH Stroke Scale Internal: Initial- Upon Arrival Level of Consciousness: Alert Level of Consciousness Questions: Answers both questions correctly Level of Consciousness Commands: Performs both tasks correctly Best Gaze: Normal Visual: No visual loss Facial Palsy: Partial paralysis Motor Arm (Right): No drift Motor Arm (Left): No drift Motor Leg (Right): No drift Motor Leg (Left): No drift Limb Ataxia: Absent Sensory: Normal Best Language: No aphasia Dysarthia: Mild to moderate dysarthria Extinction and Inattention: No abnormality Score: 3 Discharge Plan Discharge Clinical Impression: Rueda's palsy Patient Disposition: Home, Self-Care Instructions: Rueda Palsy (ED) Additional Instructions: You were evaluated for left-sided facial drooping, left arm weakness and left leg numbness and tingling. Your symptoms are consistent with Rueda's palsy. Her CT scan of the brain is negative for acute findings. Your MRI is negative. Please take prednisone 60 mg daily for the next 10 days. Take valacyclovir 1000 mg 3 times a day for the next 10 days. Drink plenty of fluids. Please use the erythromycin eye ointment every 4 hours while awake to keep the eye moist. Follow-up with primary care physician this week for evaluation. Thank you for choosing this emergency department for evaluation. Please follow-up with primary care physician as needed. Return to the emergency department for any new, concerning, or worsening symptoms. Prescriptions: New prednisone 20 mg tablet 60 mg PO DAILY 10 Days Qty: 30 0RF valacyclovir 1 gram tablet 1,000 mg PO TID 10 Days Qty: 30 0RF erythromycin 5 mg/gram (0.5 %) ointment 0.5 inch ophthalmic (eye) QID 10 Days Qty: 3.5 0RF cefuroxime axetil 500 mg tablet 500 mg PO Q12H 7 Days Qty: 14 0RF No Action epinephrine [EpiPen 2-Alec] 0.3 mg/0.3 mL auto-injector 0.3 mg IM Q4H PRN (Reason: anaphylaxis) Qty: 2 0RF Referrals: Physician,Unknown J [Primary Care Provider] - (Follow-up with the primary care) Stand Alone Forms: Work/School Release Interventions: ED Discharge Assessment Last Done: 02/17/22 20:57 Discharge Date/Time: 02/17/22 21:00
[2022-02-17 16:32] VITALS: BP 125/74; PULSE 98; RESP 16; TEMP 36.8; O2SAT 99
[2022-02-17 16:45] LABS: MANUAL DIFF FLAG NO
[2022-02-17 16:51] LABS: Prothrombin Time 10.9 SEC (10.0-13.1)
[2022-02-17 16:54] LABS: Basophils Percent Auto 0.7 % (0-2); Eosinophils Absolute Auto 0.1 X10*3/uL (0.0-0.4); Eosinophils Percent Auto 2.4 % (0-4); Hematocrit 36.4 % (37.0-47.0); Hemoglobin 12.3 g/dl (12.0-16.0); Imm Gran Abs Auto 0.01 X10*3/uL (0.00-0.03); Imm Gran Pct Auto 0.2 % (0.0-0.4); Lymphocytes Absolute Auto 1.8 X10*3/uL (1.2-4.9); Lymphocytes Percent Auto 40.3 % (20-40); Mean Corpuscular HGB Conc 33.8 g/dl (31.0-35.0); Mean Corpuscular Hemoglobin 31.2 pg (27.0-33.0); Mean Corpuscular Volume 92.4 fL (80.0-98.0); Mean Platelet Volume 9.7 fL (9.4-12.3); Monocytes Absolute Auto 0.4 X10*3/uL (0.1-1.2); Monocytes Percent Auto 7.7 % (2-11); Neutrophils Absolute Auto 2.2 x10*3/uL (2.0-8.3); Neutrophils Percent Auto 48.7 % (45-73); Partial Thromboplastin Time 29.1 SEC (26.0-36.4); Platelet Count 224 X10*3/uL (160-400); Red Blood Count 3.94 X10*6/uL (4.20-5.50); Red Cell Distribution Width 12.7 % (11.0-16.0); White Blood Count 4.6 X10*3/uL (4.8-10.8)
[2022-02-17 17:07] VITALS: BP 110/68; PULSE 58; RESP 18; O2SAT 100
[2022-02-17 17:07] LABS: Alanine Aminotransferase 25 U/L (0-31); Albumin Level 4.2 g/dL (3.5-5.0); Alkaline Phosphatase 53 U/L (39-117); Anion Gap 15 (12-20); Aspartate Amino Transferase 23 U/L (5-31); Bilirubin Direct < 0.2 mg/dL (0.0-0.5); Bilirubin Total 0.3 mg/dL (0.0-1.0); Blood Urea Nitrogen 8 mg/dL (9-16); Calcium 9.3 mg/dL (8.4-10.2); Carbon Dioxide 23 mmol/L (22-29); Chloride 108 mmol/L (96-108); Creatinine Clr Calc Pharmacy 96.9; Estimated Glomerular Filt Rate > 60; Glucose Random 111 mg/dL (60-115); Lipase 57 U/L (8-78); Potassium 3.6 mmol/L (3.3-5.1); Sodium 142 mmol/L (135-145); Total Protein 6.8 g/dL (6.5-8.0)
[2022-02-17 19:12] LABS: Appearance Urine Cloudy; Color Urine Yellow; Glucose Urine UA Negative (Negative); Leukocyte Esterase Urine Trace (Negative); Nitrite Urine Positive (Negative); UMIC TRIGGER UACC YES; Urine Blood Negative (Negative); Urine Ketones Negative (Negative); Urine Protein Negative (Neg-Trace)
[2022-02-17 19:15] LABS: Bacteria Urine 4+ (None Seen); Hyaline Casts Urine 0-2 /LPF (0-2); RBC Urine 0-2 /HPF (0-2); UACC Culture Trigger YES; WBC Urine 0-5 /HPF (0-5)
[2022-02-17] MEDS: predniSONE 20 MG TABLET 60 MG PO (20:05)
[2022-02-17] MEDS: valACYclovir HCL 1,000 MG TABLET 1000 MG PO (20:05)
[2022-02-17 20:24] VITALS: BP 90/52; PULSE 50; RESP 17; TEMP 36.9; O2SAT 99
[2022-02-17] MEDS: Erythromycin Base 0.5% Oph Oin 1 GM TUBE 1 CM EYE-LEFT (20:57)
== END 2022-02-17 21:00 | disposition home or self-care (01) ==
PROVIDERS: Nurse Practitioner Family; Emergency Provider Emergency Medicine
DX: G80.9 Cerebral palsy, unspecified (principal); R51.9 Headache, unspecified; Z79.899 Other long term (current) drug therapy
CPT/HCPCS: 36415; 70450; 70551; 80048; 80076; 81001; 83690; 85025; 85610; 85730; 87086; 87088; 87186; 99284; 99285

== ENCOUNTER 2022-02-22 16:40 | Emergency (ER) | payer MEDICAID, SELFPAY ==
[2022-02-22 17:28] VITALS: BP 127/75; PULSE 72; RESP 16; TEMP 36.7; O2SAT 99; BMI 29.6
[2022-02-22 20:21] VITALS: BP 124/66; PULSE 61; RESP 16; TEMP 37; O2SAT 99
--- NOTE | 2022-02-23 00:06 | ED_ITS ---
HPI - General Adult General Chief complaint: General Medical Stated complaint: face melting ,shakes bells palsy Time Seen by Provider: 02/22/22 22:36 Source: patient Mode of arrival: ambulatory Limitations: no limitations History of Present Illness HPI narrative: Patient presents to the emergency department today reporting worsening of her symptoms. She states that she was seen here 5 days ago and was diagnosed with Rueda's palsy. She states that she continues to have ongoing numbness and facial asymmetry she does numbness is particularly worse to the left side of mouth. She reports generalized fatigue. She also continues to endorse weakness to the left arm and numbness and tingling throughout the left leg. None of which is new since her prior emergency room visit. However she wanted to be re-evaluated to assure that there was nothing worsening or new. Related Data Previous Rx's Medication Instructions Recorded epinephrine 0.3 mg/0.3 mL 0.3 mg (0.3 mL) IM Q4H PRN 11/03/21 injection, auto-injector (EpiPen anaphylaxis #2 ea 2-Alec) erythromycin 5 mg/gram (0.5 %) eye 0.5 inch ophthalmic (eye) QID 10 02/17/22 ointment days #3.5 grams prednisone 20 mg tablet 60 mg PO DAILY 10 days #30 tabs 02/17/22 valacyclovir 1 gram tablet 1,000 mg PO TID 10 days #30 tabs 02/17/22 cefuroxime axetil 500 mg tablet 500 mg PO Q12H 7 days #14 tabs 02/18/22 Allergies Allergy/AdvReac Type Severity Reaction Status Date / Time aspirin [ASA] Allergy Unknown CRAP Verified 07/13/21 11:41 BLOOD bee pollen [BEE STINGS] Allergy Unknown ANAPHYLAXIS Verified 07/13/21 11:41 duloxetine [From CYMBALTA] Allergy Unknown SWELLING Verified 07/13/21 11:41 hydromorphone [From DILAUDID] Allergy Unknown ITCHY, Verified 07/13/21 11:41 VOMIT morphine [MORPHINE] Allergy Unknown SICK Verified 07/13/21 11:41 naproxen [NAPROXEN] Allergy Unknown CRAP Verified 07/13/21 11:41 BLOOD pregabalin [From LYRICA] Allergy Unknown SWELLING Verified 07/13/21 11:41 SEAFOOD Allergy Unknown UNKNOWN Uncoded 02/05/20 19:08 Review of Systems Review of Systems: Constitutional: No weight loss. No fever. No chills. Positive fatigue. Head: Positive facial asymmetry Eye: No swelling. No redness. ENT: No sore throat. No rhinorrhea. No nasal congestion. No sore throat. No difficulty swallowing. Skin: No rash. No itching. Cardiovascular: No chest pain. No chest pressure. No palpitations. No pedal edema. Respiratory: No shortness of breath. No cough. No sputum production. Gastrointestinal: No anorexia. No nausea. No vomiting. No diarrhea. No abdominal pain. No blood in stool. Genitourinary: No burning micturition. No urinary frequency. No incontinence. Neurologic: No headache. No dizziness. No pre-syncope/ syncope. Positive unilateral weakness. No ataxia. Positive numbness. Positive tingling. No change in bowel or bladder control. Musculoskeletal: No muscle pain. No back pain. No joint pain. No stiffness. Hematologic: No bleeding. No bruising. Yes all other systems are reviewed and are negative PMFSH Past Medical History Attestation statement: The following information was validated with the patient. Source: old records reviewed Social History Social History Patient Tobacco Use Status: Former Tobacco user Advance Directives: No Advance Directives Information Provided: No Physical Exam ED Vital Signs: Vital Signs - 24 hr 02/22/22 17:28 02/22/22 20:21 Temperature 98.1 F 98.6 F Pulse Rate 72 61 Respiratory Rate 16 16 Blood Pressure 127/75 124/66 Pulse Oximetry 99 99 Oxygen Delivery Method Room Air Room Air BMI result Body Mass Index 29.6 Vital signs have been reviewed as normal and appeared to be correct. Blood pressure normal.? Heart rate normal.? Respiration rate normal. Temperature normal.? Oxygen saturation normal. Appearance: Alert.?Oriented to person, place and time. No acute distress.?Normal affect. Eyes: Pupils equal, round and reactive to light.? ENT: Pharynx normal.?? Neck: Normal inspection.? Neck supple.?? CVS: Heart sounds normal. Normal heart rate and rhythm.? Pulses normal.?? Respiratory: No respiratory distress.? Lung sounds clear to auscultation bilaterally?? Abdomen: Soft and non-tender. Normoactive bowel sounds. Skin: Skin warm and dry.? Normal skin color.? Extremities: No lower extremity edema.? Neuro: Positive facial asymmetry with partial paralysis to the left side of the face, Appearing consistent with Rueda's palsy. normal sensory observed, normal coordination observed. Level of consciousness: Appropriate for age. Motor strength: right upper extremity 5 /5, left upper extremity 5/5, right lower extremity 5 /5, left lower extremity 5/5.?Speech: Normal, Gait: Normal, [id number] test: Normal, [id number] test: Normal. NIH Stroke Scale Level of Consciousness: Alert Level of Consciousness Questions: Answers both questions correctly Level of Consciousness Commands: Performs both tasks correctly Best Gaze: Normal Visual: No visual loss Facial Palsy: Partial paralysis Motor Arm (Right): No drift Motor Arm (Left): No drift Motor Leg (Right): No drift Motor Leg (Left): No drift Limb Ataxia: Absent Sensory: Normal Best Language: No aphasia Dysarthia: Normal Extinction and Inattention: No abnormality Score: 2 Course Course Course Narrative: Patient is a 36-year-old female presenting to the emergency department for re- evaluation after recent diagnosis of Rueda's palsy. Concerned today that she is having generalized body aches, and feels that the numbness to the left side of her mouth is worse than it was when she was 1st evaluated. Her slurred speech has improved however which she initially presented with on 02/17/2022. At that time she was also found to have urinary tract infection for which she was placed on antibiotics, she had a CT of the head and MRI which were both negative for any acute findings. She was discharged home on a course of prednisone, valacyclovir, and erythromycin ointment. The at this time she has an NIH stroke score of 2 for the partial facial paralysis, with no new focal neurological deficits. I did discuss with patient obtaining repeat head CT given that she feels worsening of the numbness that was previously experienced, although I have a low suspicion for infarct, ICH, SAH, and patient ultimately declined to have repeat head CT upon shared decision-making. Patient reporting generalized body aching to the left side, however she is able to move all of her extremities and sensation is intact. She states she is unable to take NSAIDs due to allergies and prior partial liver donation. She was advised by her surgeon that she may take Tylenol which she did not trial as of yet. Discussed possibility of body aches as a symptom of COVID-19, however she has had recent negative testing, states she has not been around anyone or has left her house since previous testing and declines to have this repeated at this time. Do not see any indication to repeat labs based on her presenting complaint. Discussed plan of care for discharge home, outpatient follow-up with her primary care provider, and continuation of the medications previously prescribed. We reviewed worrisome signs and symptoms that she should return back to the emergency department for. Patient verbalized understanding. Discharged in stable condition. Ambulatory with a steady gait. Discharge Plan Discharge Clinical Impression: Rueda's palsy Patient Disposition: Home, Self-Care Instructions: Rueda Palsy (ED) Additional Instructions: Continue taking the medications you are prescribed to help treat Rueda's palsy. You can take Tylenol 500 mg, 2 tablets (1,000mg) every 4-6 hours as needed for pain, but not to exceed 3 doses daily (3,000mg). Return to emergency department with any new or worsening symptoms or concerns. Contact your primary care provider to arrange for a follow-up visit within 5 days. ? Prescriptions: No Action epinephrine [EpiPen 2-Alec] 0.3 mg/0.3 mL auto-injector 0.3 mg IM Q4H PRN (Reason: anaphylaxis) Qty: 2 0RF prednisone 20 mg tablet 60 mg PO DAILY 10 Days Qty: 30 0RF valacyclovir 1 gram tablet 1,000 mg PO TID 10 Days Qty: 30 0RF erythromycin 5 mg/gram (0.5 %) ointment 0.5 inch ophthalmic (eye) QID 10 Days Qty: 3.5 0RF cefuroxime axetil 500 mg tablet 500 mg PO Q12H 7 Days Qty: 14 0RF Referrals: Esequiel Young MD [Primary Care Provider] - Interventions: ED Discharge Assessment Last Done: 02/23/22 00:30 Discharge Date/Time: 02/23/22 00:30
== END 2022-02-23 00:30 | disposition home or self-care (01) ==
PROVIDERS: Emergency Provider Emergency Medicine; PCP Internal Medicine
DX: G51.0 Bell's palsy (principal); R29.702 NIHSS score 2; Z79.899 Other long term (current) drug therapy
CPT/HCPCS: 99282

== ENCOUNTER 2022-05-18 14:23 | Emergency (ER) | payer MEDICAID, SELFPAY ==
--- NOTE | ~2022-05-18 | CT_ITS ---
EXAMINATION: CT HEAD WITHOUT CONTRAST CLINICAL INFORMATION: Facial asymmetry, Rueda's palsy COMPARISON: Head CT 02/17/2022, MRI brain 02/17/2022 TECHNIQUE: Imaging was performed from the skull base to vertex without intravenous administration of contrast. This CT examination was performed using dose optimization techniques as appropriate, variously including the following: *Automated exposure control *Adjustment of mA and/or kV according to patient size (this includes techniques or standardized protocols for targeted exams where dose is matched to indication/reason for exam; i.e. extremities or head) *Use of iterative reconstruction technique Total exam dose length product: 627 mGy-cm FINDINGS: No intra or extra-axial fluid collection, hemorrhage, or mass. No ventriculomegaly. No midline shift or herniation. Basal cisterns are patent. Bowie-white matter differentiation is maintained. No territorial encephalomalacia. No significant volume loss. There is no abnormal attenuation within the brain parenchyma. No calvarial fracture or soft tissue abnormality. The mastoid air cells and visualized portions of the paranasal sinuses are well aerated. CT/CT head/brain wo IV con IMPRESSION: 1. No acute intracranial pathology.
[2022-05-18 14:58] VITALS: BP 110/63; PULSE 74; RESP 18; TEMP 36.8; O2SAT 98; BMI 31.4
--- NOTE | 2022-05-18 15:02 | ED.NEUROSD ---
HPI - Neuro Symptoms/Deficit General Chief Complaint: General Medical <Tasha Arndt NP - Last Filed: 05/18/22 15:12> Stated Complaint: bells palsy issues <Tasha Arndt NP - Last Filed: 05/18/22 15:12> Time Seen by Provider: 05/18/22 17:28 <Tasha Arndt NP - Last Filed: 05/18/22 15:12> Source: patient <Audrey Sparks NP - Last Filed: 05/18/22 18:55> Mode of arrival: ambulatory <uAdrey Sparks NP - Last Filed: 05/18/22 18:55> Limitations: no limitations <Audrey Sparks NP - Last Filed: 05/18/22 18:55> History of Present Illness HPI Narrative: 36-year-old female with a past medical history partial liver resection, depression, 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 this morning and reports the facial paralysis is worse than any previous episode. She reports asymmetry in smiling, chewing, swallowing, with numbness on the left side of her face. Patient was seen in this emergency department on 02/17/2022 for similar symptoms and prescribed prednisone, valacyclovir, cefuroxime (for a UTI), and erythromycin ointment. She states symptoms resolved in roughly 2 weeks after beginning medication. She reports at the time she was left under the impression that she had Lyme disease, however; no Lyme testing or treatment initiated noted in her chart. She denies any known recent illness or sick contacts. She denies any fever, nausea, vomiting, diarrhea, constipation. She endorses intermittent chills and hot flashes which she attributes to early menopause brought on by a total hysterectomy a few years ago. She denies any numbness, weakness, or tingling in extremities, she denies any change in gait, she denies any dizziness or vision changes. She reports her provider recently discontinued venlafaxine for treatment of her depression as she will be changing to Zoloft. <Audrey Sparks NP - Last Filed: 05/18/22 18:55> Onset (ago): hour(s) <Audrey Sparks NP - Last Filed: 05/18/22 18:55> Time: 11:00 <Audrey Sparks NP - Last Filed: 05/18/22 18:55> Location: left face <Audrey Sparks NP - Last Filed: 05/18/22 18:55> History of same: Yes <Audrey Sparks [employer] - Last Filed: 05/18/22 18:55> Severity: moderate <Audrey Sparks [employer] - Last Filed: 05/18/22 18:55> Quality: numb <Audrey Sparks [employer] - Last Filed: 05/18/22 18:55> Relieving factors: none <Audrey Sparks NP - Last Filed: 05/18/22 18:55> Exacerbating factors: none <Audrey Sparks NP - Last Filed: 05/18/22 18:55> Associated symptoms: denies other symptoms <Audrey Sparks NP - Last Filed: 05/18/22 18:55> Treatments Prior to Arrival: none <Audrey Sparks NP - Last Filed: 05/18/22 18:55> Related Data Home Medications: Previous Rx's Medication Instructions Recorded epinephrine 0.3 mg/0.3 mL 0.3 mg (0.3 mL) IM Q4H PRN 11/03/21 injection, auto-injector (EpiPen anaphylaxis #2 ea 2-Alec) erythromycin 5 mg/gram (0.5 %) eye 0.5 inch ophthalmic (eye) QID 10 02/17/22 ointment days #3.5 grams prednisone 20 mg tablet 60 mg PO DAILY 10 days #30 tabs 02/17/22 valacyclovir 1 gram tablet 1,000 mg PO TID 10 days #30 tabs 02/17/22 cefuroxime axetil 500 mg tablet 500 mg PO Q12H 7 days #14 tabs 02/18/22 cefuroxime axetil 500 mg tablet 500 mg PO BID 7 days #14 tabs 05/18/22 erythromycin 5 mg/gram (0.5 %) eye 1 appl ophthalmic-Left DAILY #3.5 12/29/22 ointment grams prednisone 20 mg tablet 60 mg PO DAILY 7 days #21 tabs 05/18/22 valacyclovir 1 gram tablet 1,000 mg PO TID 7 days #21 tabs 05/18/22 <Tasha Arndt NP - Last Filed: 05/18/22 15:12> Allergies/Adverse Reactions: Allergies Allergy/AdvReac Type Severity Reaction Status Date / Time aspirin [ASA] Allergy Unknown CRAP Verified 07/13/21 11:41 BLOOD bee pollen [BEE STINGS] Allergy Unknown ANAPHYLAXIS Verified 07/13/21 11:41 duloxetine [From CYMBALTA] Allergy Unknown SWELLING Verified 07/13/21 11:41 hydromorphone [From DILAUDID] Allergy Unknown ITCHY, Verified 07/13/21 11:41 VOMIT morphine [MORPHINE] Allergy Unknown SICK Verified 07/13/21 11:41 naproxen [NAPROXEN] Allergy Unknown CRAP Verified 07/13/21 11:41 BLOOD pregabalin [From LYRICA] Allergy Unknown SWELLING Verified 07/13/21 11:41 SEAFOOD Allergy Unknown UNKNOWN Uncoded 02/05/20 19:08 <Tasha Arndt NP - Last Filed: 05/18/22 15:12> Review of Systems Review of Systems: In addition to documented HPI above, the additional ROS was obtained: Constitutional: No Weight loss, No Fever ENT/Mouth: No Ear Pain, No Nasal Congestion, No Sinus Pain, No Hoarseness, No sore throat, No Rhinorrhea, No Swallowing Difficulty Cardiovascular: No Chest Pain, No SOB Respiratory: No Cough, No Sputum, No Wheezing Gastrointestinal: No Nausea, No Vomiting, No Diarrhea, No Constipation, No Abdominal pain Genitourinary: No Dysuria, No Urinary Frequency, No Hematuria, No Urinary Incontinence/retention, No Urgency, No Flank Pain Musculoskeletal: No joint pain, No Myalgias, No Joint Swelling Skin: No Skin Lesions, No rash Neuro: No Weakness, No Numbness, No Paresthesias in extremities <Audrey Sparks NP - Last Filed: 05/18/22 18:55> Yes all other systems are reviewed and are negative <DEEPAK Buckley Last Filed: 05/18/22 18:55> [facility] Past Medical History Attestation statement: The following information was validated with the patient. <Audrey Sparks NP - Last Filed: 05/18/22 18:55> Source: old records reviewed and obtained from family <Audrey Sparks NP - Last Filed: 05/18/22 18:55> Social History Social History: Social History Patient Tobacco Use Status: Former Tobacco user Advance Directives: No Advance Directives Information Provided: No <Tasha Arndt NP - Last Filed: 05/18/22 15:12> Physical Exam Vital Signs: Vital Signs: Last Vital Signs Temp 98.2 F 05/18/22 14:58 Pulse 74 05/18/22 14:58 Resp 18 05/18/22 14:58 BP 110/63 05/18/22 14:58 Pulse Ox 98 05/18/22 14:58 O2 Del Method 05/18/22 14:58 BMI result Body Mass Index 31.4 <Tasha Arndt NP - Last Filed: 05/18/22 15:12> Vital Signs: Last Vital Signs Temp 98.2 F 05/18/22 14:58 Pulse 74 05/18/22 14:58 Resp 18 05/18/22 14:58 BP 110/63 05/18/22 14:58 Pulse Ox 98 05/18/22 14:58 O2 Del Method 05/18/22 14:58 BMI result Body Mass Index 31.4 <Audrey Sparks NP - Last Filed: 05/18/22 18:55> Const: General: cooperative, alert and awake <Audrey Sparks NP - Last Filed: 05/18/22 18:55> Nutritional Appearance: well nourished <Audrey Sparks NP - Last Filed: 05/18/22 18:55> Orientation/consciousness: patient oriented x3 <Audrey Sparks NP - Last Filed: 05/18/22 18:55> Limitations: no limitations <Audrey Sparks NP - Last Filed: 05/18/22 18:55> HEENT: Other: Asymmetrical smile and tongue with left sided paralysis. Difficulty fully opening left eye. Symmetrical forehead creasing. <Audrey Sparks [employer] - Last Filed: 05/18/22 18:55> Head: Yes atraumatic <Audrey Sparks [employer] - Last Filed: 05/18/22 18:55> Ears: hearing grossly normal bilaterally and external ears normal <Audrey Sparks [employer] - Last Filed: 05/18/22 18:55> General nose exam: Normal external nose present and Normal nares present <Audrey Sparks [employer] - Last Filed: 05/18/22 18:55> Face and sinus: Yes other (facial asymmetry, left sided paralysis) <Audrey Sparks, [employer] - Last Filed: 05/18/22 18:55> Mouth: Normal oral and palatal mucosa present and tongue normal <Audrey Sparks, [employer] - Last Filed: 05/18/22 18:55> Teeth and gingiva: dentition normal <Audrey Sparks [employer] - Last Filed: 05/18/22 18:55> Throat: Yes posterior oropharynx normal, Yes uvula midline and Yes tonsils absent <Audrey Sparks, [employer] - Last Filed: 05/18/22 18:55> Eyes: Other: Difficulty opening left eye fully <Audrey Sparks [employer] - Last Filed: 05/18/22 18:55> Visual Erickson: normal visual erickson by confrontation <Audrey Sparks [employer] - Last Filed: 05/18/22 18:55> Alignment and Position: alignment normal <Audrey Sparks [employer] - Last Filed: 05/18/22 18:55> Periorbital: periorbital findings normal <Audrey Sparks, [employer] - Last Filed: 05/18/22 18:55> Eyelids: Yes eyelids normal <Audrey Sparks [employer] - Last Filed: 05/18/22 18:55> Conjunctivae: conjunctivae normal <Audrey Sparks, [employer] - Last Filed: 05/18/22 18:55> Sclerae: sclerae normal <Audrey Sparks [employer] - Last Filed: 05/18/22 18:55> Corneas: corneas normal <Audreyvianney Sparks, [employer] - Last Filed: 05/18/22 18:55> Pupils: Equal, round and reactive pupils present <Audreyvianney Sparks, [employer] - Last Filed: 05/18/22 18:55> EOM: EOMs intact bilaterally <Audreyvianney Sparks, [employer] - Last Filed: 05/18/22 18:55> Neck: Neck: Yes normal visual inspection, Yes full ROM and Yes no lymphadenopathy <Audreyvianney Sparks, [employer] - Last Filed: 05/18/22 18:55> Chest: Chest palpation & inspection: normal inspection of the chest <Audrey Bridger, [employer] - Last Filed: 05/18/22 18:55> Resp: Effort & Inspection: normal respiratory effort, no cough and not labored <Audreyvianney Sparks, [employer] - Last Filed: 05/18/22 18:55> Auscultation: clear to auscultation bilaterally, no crackles, no rhonchi and no wheezes <Audreyvianney Sparks, [employer] - Last Filed: 05/18/22 18:55> Cardio: Rate: regular rate <Audreymeeta Sparks, [employer] - Last Filed: 05/18/22 18:55> Rhythm: regular rhythm <Audrey Bridger, [employer] - Last Filed: 05/18/22 18:55> Back/Spine/Pelvis: Cervical Spine: cervical ROM normal <Audreyvianney Sparks, [employer] - Last Filed: 05/18/22 18:55> Thoracic/Lumbar Spine: thoraco-lumbar ROM normal <Audreymeeta Sparks, [employer] - Last Filed: 05/18/22 18:55> Skin: General skin exam: no rashes or lesions noted <Audrey Bridger, [employer] - Last Filed: 05/18/22 18:55> Neuro: General: patient oriented x3, gait normal, tone normal and moves all extremities <Audrey Bridger, [employer] - Last Filed: 05/18/22 18:55> Cranial nerves: Yes Equal, round and reactive pupils present <Audrey Bridger, [employer] - Last Filed: 05/18/22 18:55> Cognition (Neuro): normal cognition <Audreymeeta Sparks [employer] - Last Filed: 05/18/22 18:55> Motor exam (neuro): 5/5 motor strength present throughout <Audreymeeta Sparks [employer] - Last Filed: 05/18/22 18:55> Extrem: General: Yes normal to inspection, Yes full ROM and Yes capillary refill normal <Audreymeeta Sparks [employer] - Last Filed: 05/18/22 18:55> Psych: Appearance: grossly normal <Audreymeeta Sparks [employer] - Last Filed: 05/18/22 18:55> Mental Status: mental status grossly normal <Audreymeeta Sparks, [employer] - Last Filed: 05/18/22 18:55> Speech and movement: Normal speech and movement present <Audreymeeta Sparks [employer] - Last Filed: 05/18/22 18:55> Affect: normal affect <Audreymeeta Sparks [employer] - Last Filed: 05/18/22 18:55> Attitude: cooperative <Audreymeeta Sparks [employer] - Last Filed: 05/18/22 18:55> Thought process: Normal thought process present <Audreymeeta Sparks [employer] - Last Filed: 05/18/22 18:55> Thought content: Normal thought content present <Audreymeeta Sparks [employer] - Last Filed: 05/18/22 18:55> Insight: Good insight present (Psych) <Audreymeeta Sparks [employer] - Last Filed: 05/18/22 18:55> Judgement: Good judgement present (Psych) <Audreymeeta Sparks [employer] - Last Filed: 05/18/22 18:55> Course Course Course Narrative: This is a rapid medical exam. Deferred additional HPI, ROS, PE to primary provider. 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 Returned for 02/2022 for worsening symptoms. Here today for worsening left facial weakness, tingling, dropping mouth and drooling worsened with waking. Patient reports she was positive for Lyme disease. This is not available in the records. She tells me she was treated for Lyme disease but I do not see any record of her being treated with doxycycline. Per record patient was treated with cefuroxime for UTI. VSS <Tasha Arndt NP - Last Filed: 05/18/22 15:12> This is a rapid medical exam. Deferred additional HPI, ROS, PE to primary provider. 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 Returned for 02/2022 for worsening symptoms. Here today for worsening left facial weakness, tingling, dropping mouth and drooling worsened with waking. Patient reports she was positive for Lyme disease. This is not available in the records. She tells me she was treated for Lyme disease but I do not see any record of her being treated with doxycycline. Per record patient was treated with cefuroxime for UTI. VSS 1745: Blood work unremarkable. Urine positive for infection. Plan to begin cefuroxime for coverage. Plan for CT head to rule out intracranial pathology <Audrey Sparks NP - Last Filed: 05/18/22 18:55> Medications Administered Discontinued Medications Generic Name Dose Route Start Last Admin Trade Name Freq PRN Reason Stop Dose Admin Cefuroxime Axetil 500 mg 05/18/22 17:51 05/18/22 18:33 Cefuroxime Axetil 500 Mg Tablet PO 05/18/22 17:52 500 mg ONCE ONE Administration Prednisone 60 mg 05/18/22 17:51 05/18/22 18:33 Prednisone 20 Mg Tablet PO 05/18/22 17:52 60 mg ONCE ONE Administration <Tasha Arndt NP - Last Filed: 05/18/22 15:12> Medications Administered Discontinued Medications Generic Name Dose Route Start Last Admin Trade Name Freq PRN Reason Stop Dose Admin Cefuroxime Axetil 500 mg 05/18/22 17:51 05/18/22 18:33 Cefuroxime Axetil 500 Mg Tablet PO 05/18/22 17:52 500 mg ONCE ONE Administration Prednisone 60 mg 05/18/22 17:51 05/18/22 18:33 Prednisone 20 Mg Tablet PO 05/18/22 17:52 60 mg ONCE ONE Administration <Audrey Sparks NP - Last Filed: 05/18/22 18:55> Medical Decision Making Medical Decision Making [facility] Narrative: 36-year-old female with a past medical history partial liver resection, depression, PTSD, 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 this morning and reports the facial paralysis is worse than any previous episode. She reports asymmetry in smiling, chewing, swallowing, with numbness on the left side of her face. During physical exam, facial asymmetry intermittently partially resolves and recurs throughout conversation with patient. Serology negative for flu A/B, RSV, or Covid. Pending results for Lyme screen and testing. Hematology unremarkable. Chemistry showing elevated ALT which is concerning due to pt's partial liver resection, however; patient states that she is being followed for her liver enzymes and her ALT is chronically high. CT head negative for intracranial pathology. Prednisone started for treatment of presumed Rueda's palsy and cefuroxime initiated for treatment of UTI. Plan to discharge patient home with 7 day course of prednisone and 7 day course of valacyclovir for treatment of Rueda's palsy and erythromycin ointment for prevention of ocular injury. Cefuroxime 7 day course ordered for treatment of UTI. HPI, PE, diagnostic, plan discussed with patient no unanswered questions at this time. Educated to return to the emergency department for new, worsening, or concerning emergent symptoms. Recommended to follow-up with primary care provider for further treatment and management. <Audrey Sparks NP - Last Filed: 05/18/22 18:55> Lab Data [facility] Lab Attestation statement: I reviewed the patient's lab results. <Audrey Sparks NP - Last Filed: 05/18/22 18:55> Result Diagrams: : 05/18/22 15:19 05/18/22 15:19 <Tasha Arndt NP - Last Filed: 05/18/22 15:12> Labs: Lab Results 05/18/22 05/18/22 05/18/22 Range/Units 15:15 15:19 15:19 WBC 4.0 L (4.8-10.8) X10*3/uL RBC 4.06 L (4.20-5.50) X10*6/uL Hgb 12.8 (12.0-16.0) g/dl Hct 37.9 (37.0-47.0) % MCV 93.3 (80.0-98.0) fL MCH 31.5 (27.0-33.0) pg MCHC 33.8 (31.0-35.0) g/dl RDW 12.6 (11.0-16.0) % Plt Count 224 (160-400) X10*3/uL MPV 9.4 (9.4-12.3) fL Immature Gran % (Auto) 0.2 (0.0-0.4) % Neut % (Auto) 50.6 (45-73) % Lymph % (Auto) 37.3 (20-40) % Bates % (Auto) 8.7 (2-11) % Eos % (Auto) 2.5 (0-4) % Baso % (Auto) 0.7 (0-2) % Lymph # (Auto) 1.5 (1.2-4.9) X10*3/uL Bates # (Auto) 0.4 (0.1-1.2) X10*3/uL Eos # (Auto) 0.1 (0.0-0.4) X10*3/uL Baso # (Auto) 0.0 (0.0-0.2) X10*3/uL Abs Immat Gran (auto) 0.01 (0.00-0.03) X10*3/uL Absolute Neuts (auto) 2.0 (2.0-8.3) x10*3/uL Absolute Nucleated RBC 0.000 (0.0-0.012) X10*3/uL Nucleated RBC % (auto) 0.0 (0.0-0.2) /100WBC Sodium 144 (135-145) mmol/L Potassium 3.9 (3.3-5.1) mmol/L Chloride 108 (96-108) mmol/L Carbon Dioxide 30 H (22-29) mmol/L Anion Gap 10 L (12-20) BUN 10 (9-16) mg/dL Creatinine 0.77 (0.5-1.4) mg/dL Estim Creat Clear Calc 96.7 Estimated GFR > 60 Random Glucose 90 (60-115) mg/dL Calcium 9.8 (8.4-10.2) mg/dL Total Bilirubin 0.6 (0.0-1.0) mg/dL Direct Bilirubin 0.2 (0.0-0.5) mg/dL AST 23 (5-31) U/L ALT 42 H (0-31) U/L Alkaline Phosphatase 72 (39-117) U/L Total Protein 6.9 (6.5-8.0) g/dL Albumin 4.3 (3.5-5.0) g/dL Urine Color Urine Appearance Urine pH (5.0-9.0) Ur Specific Adrian (1.005-1.025) Urine Protein (Neg-Trace) mg/dL Urine Glucose (UA) (Negative) mg/dL Urine Ketones (Negative) mg/dL Urine Blood (Negative) Urine Nitrite (Negative) Ur Leukocyte Esterase (Negative) Urine RBC (0-2) /HPF Urine WBC (0-5) /HPF Ur Squamous Epith Cells (0-2) /HPF Urine Bacteria (None Seen) Hyaline Casts (0-2) /LPF Urine Test (NEGATIVE) Influenza Type A (PCR) NEGATIVE (Negative) Influenza Type B (PCR) NEGATIVE (Negative) RSV RNA Qual (PCR) NEGATIVE (Negative) SARS-CoV-2 RNA (RT-PCR) NEGATIVE (Negative) 05/18/22 05/18/22 Range/Units 15:24 15:24 WBC (4.8-10.8) X10*3/uL RBC (4.20-5.50) X10*6/uL Hgb (12.0-16.0) g/dl Hct (37.0-47.0) % MCV (80.0-98.0) fL MCH (27.0-33.0) pg MCHC (31.0-35.0) g/dl RDW (11.0-16.0) % Plt Count (160-400) X10*3/uL MPV (9.4-12.3) fL Immature Gran % (Auto) (0.0-0.4) % Neut % (Auto) (45-73) % Lymph % (Auto) (20-40) % Bates % (Auto) (2-11) % Eos % (Auto) (0-4) % Baso % (Auto) (0-2) % Lymph # (Auto) (1.2-4.9) X10*3/uL Bates # (Auto) (0.1-1.2) X10*3/uL Eos # (Auto) (0.0-0.4) X10*3/uL Baso # (Auto) (0.0-0.2) X10*3/uL Abs Immat Gran (auto) (0.00-0.03) X10*3/uL Absolute Neuts (auto) (2.0-8.3) x10*3/uL Absolute Nucleated RBC (0.0-0.012) X10*3/uL Nucleated RBC % (auto) (0.0-0.2) /100WBC Sodium (135-145) mmol/L Potassium (3.3-5.1) mmol/L Chloride (96-108) mmol/L Carbon Dioxide (22-29) mmol/L Anion Gap (12-20) BUN (9-16) mg/dL Creatinine (0.5-1.4) mg/dL Estim Creat Clear Calc Estimated GFR Random Glucose (60-115) mg/dL Calcium (8.4-10.2) mg/dL Total Bilirubin (0.0-1.0) mg/dL Direct Bilirubin (0.0-0.5) mg/dL AST (5-31) U/L ALT (0-31) U/L Alkaline Phosphatase (39-117) U/L Total Protein (6.5-8.0) g/dL Albumin (3.5-5.0) g/dL Urine Color Yellow Urine Appearance Clear Urine pH 6.0 (5.0-9.0) Ur Specific Adrian 1.020 (1.005-1.025) Urine Protein Negative (Neg-Trace) mg/dL Urine Glucose (UA) Negative (Negative) mg/dL Urine Ketones Negative (Negative) mg/dL Urine Blood Negative (Negative) Urine Nitrite Negative (Negative) Ur Leukocyte Esterase Moderate (2+) H (Negative) Urine RBC 0-2 (0-2) /HPF Urine WBC 21-50 H (0-5) /HPF Ur Squamous Epith Cells 0-2 (0-2) /HPF Urine Bacteria 4+ (None Seen) Hyaline Casts 0-2 (0-2) /LPF Urine Test NEGATIVE (NEGATIVE) Influenza Type A (PCR) (Negative) Influenza Type B (PCR) (Negative) RSV RNA Qual (PCR) (Negative) SARS-CoV-2 RNA (RT-PCR) (Negative) <Tasha Arndt NP - Last Filed: 05/18/22 15:12> Lab Results 05/18/22 05/18/22 05/18/22 Range/Units 15:15 15:19 15:19 WBC 4.0 L (4.8-10.8) X10*3/uL RBC 4.06 L (4.20-5.50) X10*6/uL Hgb 12.8 (12.0-16.0) g/dl Hct 37.9 (37.0-47.0) % MCV 93.3 (80.0-98.0) fL MCH 31.5 (27.0-33.0) pg MCHC 33.8 (31.0-35.0) g/dl RDW 12.6 (11.0-16.0) % Plt Count 224 (160-400) X10*3/uL MPV 9.4 (9.4-12.3) fL Immature Gran % (Auto) 0.2 (0.0-0.4) % Neut % (Auto) 50.6 (45-73) % Lymph % (Auto) 37.3 (20-40) % Bates % (Auto) 8.7 (2-11) % Eos % (Auto) 2.5 (0-4) % Baso % (Auto) 0.7 (0-2) % Lymph # (Auto) 1.5 (1.2-4.9) X10*3/uL Bates # (Auto) 0.4 (0.1-1.2) X10*3/uL Eos # (Auto) 0.1 (0.0-0.4) X10*3/uL Baso # (Auto) 0.0 (0.0-0.2) X10*3/uL Abs Immat Gran (auto) 0.01 (0.00-0.03) X10*3/uL Absolute Neuts (auto) 2.0 (2.0-8.3) x10*3/uL Absolute Nucleated RBC 0.000 (0.0-0.012) X10*3/uL Nucleated RBC % (auto) 0.0 (0.0-0.2) /100WBC Sodium 144 (135-145) mmol/L Potassium 3.9 (3.3-5.1) mmol/L Chloride 108 (96-108) mmol/L Carbon Dioxide 30 H (22-29) mmol/L Anion Gap 10 L (12-20) BUN 10 (9-16) mg/dL Creatinine 0.77 (0.5-1.4) mg/dL Estim Creat Clear Calc 96.7 Estimated GFR > 60 Random Glucose 90 (60-115) mg/dL Calcium 9.8 (8.4-10.2) mg/dL Total Bilirubin 0.6 (0.0-1.0) mg/dL Direct Bilirubin 0.2 (0.0-0.5) mg/dL AST 23 (5-31) U/L ALT 42 H (0-31) U/L Alkaline Phosphatase 72 (39-117) U/L Total Protein 6.9 (6.5-8.0) g/dL Albumin 4.3 (3.5-5.0) g/dL Urine Color Urine Appearance Urine pH (5.0-9.0) Ur Specific Adrian (1.005-1.025) Urine Protein (Neg-Trace) mg/dL Urine Glucose (UA) (Negative) mg/dL Urine Ketones (Negative) mg/dL Urine Blood (Negative) Urine Nitrite (Negative) Ur Leukocyte Esterase (Negative) Urine RBC (0-2) /HPF Urine WBC (0-5) /HPF Ur Squamous Epith Cells (0-2) /HPF Urine Bacteria (None Seen) Hyaline Casts (0-2) /LPF Urine Test (NEGATIVE) Influenza Type A (PCR) NEGATIVE (Negative) Influenza Type B (PCR) NEGATIVE (Negative) RSV RNA Qual (PCR) NEGATIVE (Negative) SARS-CoV-2 RNA (RT-PCR) NEGATIVE (Negative) 05/18/22 05/18/22 Range/Units 15:24 15:24 WBC (4.8-10.8) X10*3/uL RBC (4.20-5.50) X10*6/uL Hgb (12.0-16.0) g/dl Hct (37.0-47.0) % MCV (80.0-98.0) fL MCH (27.0-33.0) pg MCHC (31.0-35.0) g/dl RDW (11.0-16.0) % Plt Count (160-400) X10*3/uL MPV (9.4-12.3) fL Immature Gran % (Auto) (0.0-0.4) % Neut % (Auto) (45-73) % Lymph % (Auto) (20-40) % Bates % (Auto) (2-11) % Eos % (Auto) (0-4) % Baso % (Auto) (0-2) % Lymph # (Auto) (1.2-4.9) X10*3/uL Bates # (Auto) (0.1-1.2) X10*3/uL Eos # (Auto) (0.0-0.4) X10*3/uL Baso # (Auto) (0.0-0.2) X10*3/uL Abs Immat Gran (auto) (0.00-0.03) X10*3/uL Absolute Neuts (auto) (2.0-8.3) x10*3/uL Absolute Nucleated RBC (0.0-0.012) X10*3/uL Nucleated RBC % (auto) (0.0-0.2) /100WBC Sodium (135-145) mmol/L Potassium (3.3-5.1) mmol/L Chloride (96-108) mmol/L Carbon Dioxide (22-29) mmol/L Anion Gap (12-20) BUN (9-16) mg/dL Creatinine (0.5-1.4) mg/dL Estim Creat Clear Calc Estimated GFR Random Glucose (60-115) mg/dL Calcium (8.4-10.2) mg/dL Total Bilirubin (0.0-1.0) mg/dL Direct Bilirubin (0.0-0.5) mg/dL AST (5-31) U/L ALT (0-31) U/L Alkaline Phosphatase (39-117) U/L Total Protein (6.5-8.0) g/dL Albumin (3.5-5.0) g/dL Urine Color Yellow Urine Appearance Clear Urine pH 6.0 (5.0-9.0) Ur Specific Adrian 1.020 (1.005-1.025) Urine Protein Negative (Neg-Trace) mg/dL Urine Glucose (UA) Negative (Negative) mg/dL Urine Ketones Negative (Negative) mg/dL Urine Blood Negative (Negative) Urine Nitrite Negative (Negative) Ur Leukocyte Esterase Moderate (2+) H (Negative) Urine RBC 0-2 (0-2) /HPF Urine WBC 21-50 H (0-5) /HPF Ur Squamous Epith Cells 0-2 (0-2) /HPF Urine Bacteria 4+ (None Seen) Hyaline Casts 0-2 (0-2) /LPF Urine Test NEGATIVE (NEGATIVE) Influenza Type A (PCR) (Negative) Influenza Type B (PCR) (Negative) RSV RNA Qual (PCR) (Negative) SARS-CoV-2 RNA (RT-PCR) (Negative) <Audrey Sparks NP - Last Filed: 05/18/22 18:55> Radiology Impression Discussion of test interpretation with radiology: I have reviewed the radiologist's reading. <Audrey Sparks NP - Last Filed: 05/18/22 18:55> Radiologist Impression: EXAMINATION: CT HEAD WITHOUT CONTRAST CLINICAL INFORMATION: Facial asymmetry, Rueda's palsy? COMPARISON: Head CT 02/17/2022, MRI brain 02/17/2022 TECHNIQUE: Imaging was performed from the skull base to vertex without intravenous administration of contrast. This CT examination was performed using dose optimization techniques as appropriate, variously including the following: *Automated exposure control *Adjustment of mA and/or kV according to patient size (this includes techniques or standardized protocols for targeted exams where dose is matched to indication/reason for exam; i.e. extremities or head) *Use of iterative reconstruction technique Total exam dose length product: 627 mGy-cm FINDINGS: No intra or extra-axial fluid collection, hemorrhage, or mass. No ventriculomegaly. No midline shift or herniation. Basal cisterns are patent. Bowie-white matter differentiation is maintained. No territorial encephalomalacia. ?No significant volume loss. There is no abnormal attenuation within the brain parenchyma. No calvarial fracture or soft tissue abnormality. ?The mastoid air cells and visualized portions of the paranasal sinuses are well aerated. CT/CT head/brain wo IV con IMPRESSION: 1. No acute intracranial pathology. ? Dictated By: Rohith Amos Signed By: <Electronically signed by Rohith? Dandre in OV> 05/18/221840 DD/ 09 TD/TT:? Supervisor Lens Generating: <Audrey Sparks NP - Last Filed: 05/18/22 18:55> Discharge Plan Discharge Clinical Impression: Facial paralysis/[place] palsy <Tasha Arndt NP - Last Filed: 05/18/22 15:12> Patient Disposition: Home, Self-Care <Tasha Arndt NP - Last Filed: 05/18/22 15:12> Instructions: Reuda Palsy (ED) <Tasha Arndt NP - Last Filed: 05/18/22 15:12> Additional Instructions: Your CT scan is negative for any signs of stroke. 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 <Tasha Arndt NP - Last Filed: 05/18/22 15:12> Prescriptions: New cefuroxime axetil 500 mg tablet 500 mg PO BID 7 Days Qty: 14 0RF prednisone 20 mg tablet 60 mg PO DAILY 7 Days Qty: 21 0RF erythromycin 5 mg/gram (0.5 %) ointment 1 appl ophthalmic-Left DAILY Qty: 3.5 0RF valacyclovir 1 gram tablet 1,000 mg PO TID 7 Days Qty: 21 0RF No Action epinephrine [EpiPen 2-Alec] 0.3 mg/0.3 mL auto-injector 0.3 mg IM Q4H PRN (Reason: anaphylaxis) Qty: 2 0RF prednisone 20 mg tablet 60 mg PO DAILY 10 Days Qty: 30 0RF valacyclovir 1 gram tablet 1,000 mg PO TID 10 Days Qty: 30 0RF erythromycin 5 mg/gram (0.5 %) ointment 0.5 inch ophthalmic (eye) QID 10 Days Qty: 3.5 0RF cefuroxime axetil 500 mg tablet 500 mg PO Q12H 7 Days Qty: 14 0RF <Tasha Arndt NP - Last Filed: 05/18/22 15:12> Referrals: Esequiel Young MD [Primary Care Provider] - <Tasha Arndt NP - Last Filed: 05/18/22 15:12> Print Language: Spanish <Tasha Arndt NP - Last Filed: 05/18/22 15:12>
--- OUTSIDE RECORDS SUMMARY | 2022-05-18 15:19 | XMS_ITS | Continuity of Care Document ---
:1985 Author Organization [facility] Adult Address [address] [place] [address]- Care Team Providers Name Role Phone Esequiel Young MD Primary Care Physician Encounter [facility] [place] Date(s): 04/12/22 - 04/19/22 [facility] [address] [place] [address]- Attending Physician: Esequiel Young MD Allergies, Adverse Reactions, Alerts Substance Reaction Severity Status naproxen CAUSES BLOOD IN STOOL Active amoxicillin Throat swelling Persistent Severe Active aspirin Defecate Bright Red Blood Persistent Severe Acti ve penicillins Throat swells Persistent Severe Active Dilaudid SEVERE ABD PAIN Active Bee Stings Active Cymbalta Throat swelling Persistent Severe Active Lyrica Throat Swelling Persistent Severe Active Influenza Virus Vaccine Active Morphine Sulfate ER THROAT SWELLING/ VOMITING Ac tive Immunizations Given and Recorded Vaccine Date Status Refusal Reason tetanus/diphtheria/pertussis, acel(Tdap) 04/12/22 Given influenza virus vaccine, inactivated 04/12/22 Given SARS-CoV-2 mRNA (fyladzf-pquq-rdrfc) vax 05/09/21 Recorde d SARS-CoV-2 mRNA (tsssodp-qfjy-kakjk) vax 09/14/20 Recorde d SARS-CoV-2 mRNA (wbfplnv-irdt-eaeak) vax 08/17/20 Recorde d tetanus-diphtheria toxoids (Td)1 04/19/12 Recorded 1Result Comment: [10/12/2016] in paper chart Medications SUMAtriptan 50 mg oral tablet See Instructions, 1 tablet By Mouth Once upon onset of headache may repeat dose in 2 hours if needed, # 9 tablet, 2 Refills, Soft Stop, 03/14/22 9:39:00 EDT, [facility] #[id number], Partial fill upon patient request if the prescription is for a... Start Date: 03/14/22 Status: Orderedvenlafaxine 37.5 mg oral capsule, extended release See Instructions, 1 capsule By Mouth Daily for one week and then increase to 1 capsule twice daily, # 60 capsule, Refills 5, Tot. Refills 5, Maintenance, 04/12/22 10:13:00 EST, Instructions Replace Required Details, Route to Pharmacy Electronically, W... 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 Overweight (BMI Confirmed Active 25.0-29.9) Depression Confirmed Active Pseudoseizures Confirmed Active Endometriosis Confirmed Active Epilepsy Confirmed Active Fibromyalgia Confirmed Active Hypothyroid Confirmed Active Leukopenia Confirmed Active Lyme disease Confirmed Active Common migraine Confirmed Active Obese class I Confirmed Active Obesity Confirmed Active Colon polyps Confirmed Active Post traumatic stress Confirmed Active disorder (PTSD) Post traumatic stress Confirmed Active disorder (PTSD) Recurrent major Confirmed Active depression-severe Tobacco use Confirmed Active Upper respiratory Confirmed Active infection Vital Signs Most recent to oldest [Reference Range]: 1 Height 158 cm (04/12/22 9:58 AM) Weight 80.7 kg (04/12/22 9:58 AM) Oxygen Saturation [94-100 %] 98 % (04/12/22 9:58 AM) Pulse Rate [55-90 bpm] 82 bpm (04/12/22 9:58 AM) Body Mass Index [18.5-24.99 kg/m2] 32.33 kg/m2 *>HHI* (04/12/22 9:58 AM) Blood Pressure [90-138/55-84 mm Hg] 107/68 mm Hg (04/12/22 9:58 AM) Temperature [96.8-100.4 DegF] 98.1 DegF (04/12/22 9:58 AM) Mode of Delivery (Oxygen) Room air (04/12/22 9:58 AM) Blood pressure sites Arm, right (04/12/22 9:58 AM) Temperature Route Oral (04/12/22 9:58 AM) Weight Obtained Via Standing scale (04/12/22 9:58 AM) Social History Social History Type Response Smoking Status Former smoker; Tobacco user in household: Yes; Other: < 1/2ppd; entered on: 09/07/17 Sex Note Flora Ram: PERFORM, SIGN, VERIFY Event Display: Patient Education/Instruction Authored Date: [id number] [facility] *BMP So Javier Riki Clinical Summary Name MAXINE NOGUEIRA Age 36 Years 1985 PCP Hector GERMAN, Esequiel Kong PCP Visit Date 04/12/2022 09:53:00 Additional Instructions: Scheduled Appointments?? Future Appointments ?No Future Appointments Scheduled Follow-Up Instructions ?? Diagnosis Post-traumatic stress disorder, unspecified; Encounter for general adult medical examination withoutabnormal findings; Obesity, unspecified; Epilepsy, unspecified, not intractable, without status epilepticus; Rueda's palsy; Migraine, unspecified, not intractable, without status migrainosus; Major depre ssive disorder, single episode, severe without psychotic features Medications: Please continue your medications until treatment is completed or stopped by your provider. Discuss any questions related to medications with your provider. New Medications [facility] #[id number], [address] [place], [place] [id number], [phone] Venlafaxine (venlafaxine 37.5 mg oral capsule, extended release) 1 capsule By Mouth Daily for one week and then increase to 1 capsule twice daily. Refills: 5. Next Dose: Medications to Continue with No Changes These medications were not printed or sent to your pharmacy Escitalopram (escitalopram 20 mg oral tablet) 1 tab(s) Oral Daily. Refills: 5. Next Dose: Sumatriptan (SUMAtriptan 50 mg oral tablet) 1 tablet By Mouth Once upon onset of headache may repeat dose in 2 hours if needed. Refills: 2. Next Dose: Allergy Info:?? Morphine Sulfate ER; Influenza Virus Vaccine; Lyrica; Cymbalta; Bee Stings; Dilaudid; penicillins; aspirin; amoxicillin; naproxen Medications Given This Visit Future Orders ?No future orders Vital Signs Height 158 cm Weight 80.7 kg BMI 32.33 kg/m2 Blood Pressure 107 mm Hg/68 mm Hg Temperature 98.1 DegF Pulse Rate 82 bpm Respiratory Rate 02 Sat Mode of Delivery 98 %/Room air You can now view a summary of your hospital visit from the comfort of your home through a free online portal called [employer]. [employer] is a website that allows you to securely view yourmedical information including discharge summary, medications and follow-up visits. ??You can also send a secure electronic message to your doctor???s office to request appointments, renew medications or just ask a question. You can enroll at [email or web address] or register during your next office visit. Disclaimer:?? The information provided is of a general nature and is intended to be used in conjunction with the recommendations and advice of your health care practitioner. ??Every effort has been made to ensure that the information provided is accurate and complete at the time it is provided to you however, as your needs change, or, as new ??information becomes available, different or additional instructions may be required. If you have questions, please consult with your primary care provider or pharmacist, as appropriate.??This information is not intended to serve as substitution for assessment and evaluation by a qualified health care provider. If you do not have a primary care provider, you may find a [facility] provider by calling [facility] at [phone]. For information about the plan of care including goals and instructions for your diagnosis, please see the patient education orders section of this document. Patient Education Materials?? The content of this educational material or handout may have been modified, supplemented, or adaptedfrom its original content and format to support your individualized medical care. Patient Care team information Care Team PersonnelName: Smiley Jj RN Position: [facility] RN Member Role: Primary Care Nurse Name: Esequiel Young MD Position: [facility] Primary Care Physician Member Role: PCP Address: Address: [address] [place] [address]- Care Team Related PersonsName: SARAH BELLA Address: home [address] [place] [address] Name: ANNITA MCKEON Address: home [address] [place] [address] Name: PATIENCE SALAZAR Address: home [address] [place] [address] Name: PATIENCE SALAZAR Address: home [address] [place] [address]
--- OUTSIDE RECORDS SUMMARY | 2022-05-18 15:19 | XMS_ITS | Continuity of Care Document ---
:1985 Author Organization [facility] Address [address] [place] [address]- Care Team Providers Name Role Phone Not on Staff, PCP Primary Care Physician Unavailable Encounter [facility] [place] Date(s): 11/02/21 - 12/02/21 [facility] [address] [place] [id number] Allergies, Adverse Reactions, Alerts Substance Reaction Severity [...] and Recorded Vaccine Date Status Refusal Reason tetanus-diphtheria toxoids (Td)1 04/19/12 Recorded 1Result Comment: [10/12/2016] in paper chart Medications venlafaxine 37.5 mg oral capsule, extended release See Instructions, 1 capsule By Mouth Daily for one week, then increase to twice daily., # 60 capsule, Refills 2, Tot. Refills 2, Maintenance, 02/13/18 10:27:59 EDT, Instructions Replace Required Details, Route to Pharmacy Electronically, [id number]... Start Date: 02/13/18 Status: Ordered Problem List Condition Effective Dates Status Health Status Informant Abnormal weight gain(Confirmed) Active Anemia(Confirmed) Active Blind left eye(Confirmed) Active Overweight (BMI 25.0-29.9)(Confirmed) Active Depression(Confirmed) Active Pseudoseizures(Confirmed) Active Endometriosis(Confirmed) Active Epilepsy(Confirmed) Active Fibromyalgia(Confirmed) Active Hypothyroid(Confirmed) Active Leukopenia(Confirmed) Active Common migraine(Confirmed) Active Obesity(Confirmed) Active Colon polyps(Confirmed) Active Post traumatic stress disorder Active (PTSD)(Confirmed) Tobacco use(Confirmed) Active Upper respiratory infection(Confirmed) Active Social History Social History Type Response Smoking Status Former smoker; Tobacco user in household: Yes; Other: < 1/2ppd; entered on: 09/07/17 Sex
--- OUTSIDE RECORDS SUMMARY | 2022-05-18 15:19 | XMS_ITS | Continuity of Care Document ---
:1985 Author Organization [facility] Address [address] [place] [address]- Care Team Providers Name Role Phone Esequiel Young MD Primary Care Physician Encounter [facility] [place] Date(s): 03/14/22 - 03/21/22 [facility] [address] [place] [address]- Attending Physician: Esequiel Young MD Allergies, Adverse Reactions, Alerts Substance Reaction Severity Status naproxen CAUSES BLOOD IN STOOL Active amoxicillin Throat swelling Persistent Severe Active aspirin Defecate Bright Red Blood Persistent Severe Acti ve penicillins Throat swells Persistent Severe Active Dilaudid SEVERE ABD PAIN Active Cymbalta Throat swelling Persistent Severe Active Lyrica Throat Swelling Persistent Severe Active Influenza Virus Vaccine Active Morphine Sulfate ER THROAT SWELLING/ VOMITING Ac tive Bee Stings Active Immunizations Given and Recorded Vaccine Date Status Refusal Reason SARS-CoV-2 mRNA (pgcoubn-zlkt-snhry) vax 05/09/21 Recorde d SARS-CoV-2 mRNA (naujraa-mhjr-dwioc) vax 09/14/20 Recorde d SARS-CoV-2 mRNA (oxxxzei-nmsn-cxbor) vax 08/17/20 Recorde d tetanus-diphtheria toxoids (Td)1 04/19/12 Recorded 1Result Comment: [10/12/2016] in paper chart Medications escitalopram 20 mg oral tablet 1 tablet = 20 mg, By Mouth, Daily, # 30 tablet, 5 Refills, Maintenance, 03/10/22 12:39:00 EDT, [facility] #[id number], Partial fill upon patient request if the prescription is for a schedule II opioid drug., 158, cm, 02/01/22 8:58:00 EDT, Height Start Date: 03/10/22 Status: OrderedSUMAtriptan 50 mg oral tablet See Instructions, 1 tablet By Mouth Once upon onset of headache may repeat dose in 2 hours if needed, # 9 tablet, 2 Refills, Soft Stop, 03/14/22 9:39:00 EDT, [facility] #[id number], Partial fill upon patient request if the prescription is for a... Start Date: 03/14/22 Status: Ordered Problem List Condition Confirmation Course [...] oldest [Reference Range]: 1 Height 158 cm (03/14/22 9:16 AM) Weight 78.2 kg (03/14/22 9:16 AM) Oxygen Saturation [94-100 %] 98 % (03/14/22 9:16 AM) Pulse Rate [55-90 bpm] 89 bpm (03/14/22 9:16 AM) Body Mass Index [18.5-24.99 kg/m2] 31.33 kg/m2 *>HHI* (03/14/22 9:16 AM) Blood Pressure [90-138/55-84 mm Hg] 102/70 mm Hg (03/14/22 9:16 AM) Temperature [96.8-100.4 DegF] 99.4 DegF (03/14/22 9:16 AM) Mode of Delivery (Oxygen) Room air (03/14/22 9:16 AM) Blood pressure sites Arm, right (03/14/22 9:16 AM) Temperature Route Oral (03/14/22 9:16 AM) Weight Obtained Via Standing scale (03/14/22 9:16 AM) Social History Social History Type Response Smoking Status Former smoker; Tobacco user in household: Yes; Other: < 1/2ppd; entered on: 09/07/17 Sex Patient Care team information PersonnelName: Hector GERMAN, Esequiel Kong Address: Address: [address] [place] [id number]
--- OUTSIDE RECORDS SUMMARY | 2022-05-18 15:19 | XMS_ITS | Continuity of Care Document ---
:1985 Author Organization [facility] Address [address] [place] [address]- Care Team Providers Name Role Phone Hector GERMAN, Esequiel Kong Primary Care Physician Encounter [facility] Date(s): 03/23/22 - 04/22/22 [facility] [place] [address] [place] [address]- Attending Physician: Nena Carlisle Admitting Physician: Nena Carlisle Referring Physician: Nena Carlisle Allergies, Adverse Reactions, Alerts Substance Reaction Severity Status naproxen CAUSES BLOOD IN STOOL Active aspirin Defecate Bright Red Blood Persistent Severe Acti ve Morphine Sulfate ER THROAT SWELLING/ VOMITING Ac tive amoxicillin Throat swelling Persistent Severe Active penicillins Throat swells Persistent Severe Active Dilaudid SEVERE ABD PAIN Active Bee Stings Active Cymbalta Throat swelling Persistent Severe Active Lyrica Throat Swelling Persistent Severe Active Influenza Virus Vaccine Active Immunizations Given and Recorded Vaccine Date Status Refusal Reason tetanus/diphtheria/pertussis, acel(Tdap) 04/12/22 Given influenza virus vaccine, inactivated 04/12/22 Given SARS-CoV-2 mRNA (zrtxjgt-wnvq-sohpy) vax 05/09/21 Recorde d SARS-CoV-2 mRNA (vjsyhyv-xkop-jbeee) vax 09/14/20 Recorde d SARS-CoV-2 mRNA (jarkxjb-sreq-pyaph) vax 08/17/20 Recorde d tetanus-diphtheria toxoids (Td)1 04/19/12 Recorded 1Result Comment: [10/12/2016] in paper chart Medications SUMAtriptan 50 mg oral tablet See Instructions, 1 tablet By Mouth Once upon onset of headache may repeat dose in 2 hours if needed, # 9 tablet, 2 Refills, Soft Stop, 03/14/22 9:39:00 EDT, [facility] #[id number], Partial fill upon patient request if the [...] Confirmed Active Upper respiratory Confirmed Active infection Social History Social History Type Response Smoking Status Former smoker; Tobacco user in household: Yes; Other: < 1/2ppd; entered on: 09/07/17 Sex Patient Care team information Care Team PersonnelName: Parviz CANTU, Smiley Position: [facility] RN Member Role: Primary Care Nurse Name: Hector GERMAN, Esequiel Knog Position: [facility] Primary Care Physician Member Role: PCP Address: Address: [address] [place] [address]- Care Team Related PersonsName: SARAH BELLA Address: home [address] [place] [id number] Name: ANNITA MCKEON Address: home [address] [place] [address] Name: PATIENCE SALAZAR Address: home [address] [place] [address] Name: PATIENCE SALAZAR Address: home [address] [place] [address]
--- OUTSIDE RECORDS SUMMARY | 2022-05-18 15:19 | XMS_ITS | Continuity of Care Document ---
:1985 Author Organization [facility] Address [address] [place] [address]- Care Team Providers Name Role Phone Hector GERMAN, Esequiel Kong Primary Care Physician Encounter [facility] [place] Date(s): 03/10/22 - 04/09/22 [facility] [address] [place] [address]- Allergies, Adverse Reactions, Alerts Substance Reaction Severity [...] Vaccine Date Status Refusal Reason SARS-CoV-2 mRNA (hbqapkr-yjtp-jbieb) vax 05/09/21 Recorde d SARS-CoV-2 mRNA (cgnyahq-ekrr-covjt) vax 09/14/20 Recorde d SARS-CoV-2 mRNA (kozlxqv-rmeb-hfugq) vax 08/17/20 Recorde d tetanus-diphtheria toxoids (Td)1 04/19/12 Recorded 1Result Comment: [10/12/2016] in paper chart Medications escitalopram 20 mg oral tablet 1 tablet = 20 mg, By Mouth, Daily, # 30 tablet, 5 Refills, Maintenance, 03/10/22 12:39:00 EDT, [facility] #[id number], Partial fill upon patient request if the prescription is for a schedule II opioid drug., 158, cm, 02/01/22 8:58:00 EDT, Height Start Date: 03/10/22 Status: OrderedSUMAtriptan 50 mg oral tablet See Instructions, 1 tablet By Mouth Once upon onset of headache may repeat dose in 2 hours if needed, # 9 tablet, 2 Refills, Soft Stop, 03/14/22 9:39:00 EDT, [id number], Partial fill upon patient request if the [...] Patient Care team information Care Team PersonnelName: Leighton RN, Smiley Position: [facility] RN Member Role: Primary Care Nurse Name: Esequiel Young MD Position: [facility] Primary Care Physician Member Role: PCP Address: Address: [address] [place] [address]- Care Team Related PersonsName: SARAH BELLA Address: home [address] [place] [id number] Name: ANNITA MCKEON Address: home [address] [place] [address] Name: PATIENCE SALAZAR Address: home [address] [place] [address] Name: PATIENCE SALAZAR Address: home [address] [place] [address]
--- OUTSIDE RECORDS SUMMARY | 2022-05-18 15:19 | XMS_ITS | Continuity of Care Document ---
:1985 Author Organization [facility] Address [address] [place] [address]- Care Team Providers Name Role Phone Hector GERMAN, Esequiel Kong Primary Care Physician Encounter [facility] [place] Date(s): 03/22/22 - 03/29/22 [facility] [address] [place] [address]- Attending Physician: Joelle Villasenor Allergies, Adverse Reactions, Alerts Substance Reaction Severity Status naproxen CAUSES BLOOD IN STOOL Active penicillins Throat swells Persistent Severe Active Morphine Sulfate ER THROAT SWELLING/ VOMITING Ac tive amoxicillin Throat swelling Persistent Severe Active aspirin Defecate Bright Red Blood Persistent Severe Acti ve Dilaudid SEVERE ABD PAIN Active Bee Stings Active Cymbalta Throat swelling Persistent Severe Active Lyrica Throat Swelling Persistent Severe Active Influenza Virus Vaccine Active Immunizations Given and Recorded Vaccine Date Status Refusal Reason SARS-CoV-2 mRNA (qzgfsxy-tvil-mmwof) vax 05/09/21 Recorde d SARS-CoV-2 mRNA (abyomvs-dkhq-iqlhr) vax 09/14/20 Recorde d SARS-CoV-2 mRNA (yvgoqvv-dlvs-ndlrh) vax 08/17/20 Recorde d tetanus-diphtheria toxoids (Td)1 04/19/12 Recorded 1Result Comment: [10/12/2016] in paper chart Medications escitalopram 20 mg oral tablet 1 tablet = 20 mg, By Mouth, Daily, # 30 tablet, 5 Refills, Maintenance, 03/10/22 12:39:00 EDT, [facility] #[id number], Partial fill upon patient request if the prescription is for a schedule II opioid drug., 158, cm, 02/01/22 8:58:00 EDT, Height Start Date: 03/10/22 Status: OrderedSUMAtriptan 50 mg oral tablet See Instructions, 1 tablet By Mouth Once upon onset of headache may repeat dose in 2 hours if needed, # 9 tablet, 2 Refills, Soft Stop, 03/14/22 9:39:00 EDT, [facility] #[id number], Partial fill upon patient request if the [...] oldest [Reference Range]: 1 Height 158 cm (03/22/22 9:42 AM) Weight 78.0 kg (03/22/22 9:42 AM) Oxygen Saturation [94-100 %] 98 % (03/22/22 9:42 AM) Pulse Rate [55-90 bpm] 75 bpm (03/22/22 9:42 AM) Body Mass Index [18.5-24.99 kg/m2] 31.24 kg/m2 *>HHI* (03/22/22 9:42 AM) Blood Pressure [90-138/55-84 mm Hg] 109/65 mm Hg (03/22/22 9:42 AM) Temperature [96.8-100.4 DegF] 98.2 DegF (03/22/22 9:42 AM) Mode of Delivery (Oxygen) Room air (03/22/22 9:42 AM) Blood pressure sites Arm, right (03/22/22 9:42 AM) Temperature Route Oral (03/22/22 9:42 AM) Weight Obtained Via Standing scale (03/22/22 9:42 AM) Social History Social History Type Response Smoking Status Former smoker; Tobacco user in household: Yes; Other: < 1/2ppd; entered on: 09/07/17 Sex Patient Care team information Care Team PersonnelName: Leighton RN, Smiley Position: S RN Member Role: Primary Care Nurse Name: Hector GERMAN, Esequiel Kong Position: [facility] Primary Care Physician Member Role: PCP Address: Address: [address] [place] [address]- Care Team Related PersonsName: BELLA SARAH Address: home [address] [place] [address] Name: ANNITA MCKEON Address: home [address] [place] [address] Name: PATIENCE SALAZAR Address: home [address] [place] [address] Name: PATIENCE SALAZAR Address: home [address] [place] [address]
--- OUTSIDE RECORDS SUMMARY | 2022-05-18 15:19 | XMS_ITS | Continuity of Care Document ---
:1985 Author Organization [facility] Adult Address [address] [place] [address]- Care Team Providers Name Role Phone Esequiel Young MD Primary Care Physician Encounter [facility] [id number] Date(s): 01/02/22 - 03/03/22 [facility] Adult [address] [place] [address]- Attending Physician: Esequiel Young MD Allergies, Adverse [...] Vaccine Date Status Refusal Reason SARS-CoV-2 mRNA (xeplfbc-qrry-houao) vax 05/09/21 Recorde d SARS-CoV-2 mRNA (svgaccy-siln-fxxoq) vax 09/14/20 Recorde d SARS-CoV-2 mRNA (wjylhpx-xlxq-mwzaf) vax 08/17/20 Recorde d tetanus-diphtheria toxoids (Td)1 04/19/12 Recorded 1Result Comment: [10/12/2016] in paper chart Medications escitalopram 10 mg oral tablet 1 tablet = 10 mg, By Mouth, Daily, # 30 tablet, 5 Refills, Maintenance, 02/01/22 9:21:00 EDT, [id number], Partial fill upon patient request if the prescription is for a schedule II opioid drug., 158, cm, 02/01/22 8:58:00 EDT, Height Start Date: 02/01/22 Status: Ordered Problem List Condition Confirmation Course Effective Dates Status Health I nformant Status Abnormal weight gain Confirmed Active Anemia Confirmed Active 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
--- OUTSIDE RECORDS SUMMARY | 2022-05-18 15:19 | XMS_ITS | Continuity of Care Document ---
:1985 Author Organization [facility] Adult Address [address] [place] [address]- Care Team Providers Name Role Phone Esequiel Young MD Primary Care Physician Encounter [facility] Date(s): 02/01/22 - 02/08/22 [facility] Adult [address] [place] [address]- Attending Physician: Esequiel Young MD Allergies, Adverse Reactions, Alerts Substance Reaction Severity Status naproxen CAUSES BLOOD IN STOOL Active penicillins Throat swells Persistent Severe Active Bee Stings Active Morphine Sulfate ER THROAT SWELLING/ VOMITING Ac tive amoxicillin Throat swelling Persistent Severe Active aspirin Defecate Bright Red Blood Persistent Severe Acti ve Dilaudid SEVERE ABD PAIN Active Cymbalta Throat swelling Persistent Severe Active Lyrica Throat Swelling Persistent Severe Active Influenza Virus Vaccine Active Immunizations Given and Recorded Vaccine Date Status Refusal Reason SARS-CoV-2 mRNA (infmext-qpda-nbmqo) vax 05/09/21 Recorde d SARS-CoV-2 mRNA (zfsyvha-awrd-fizvl) vax 09/14/20 Recorde d SARS-CoV-2 mRNA (zdleqfl-xfev-iwukn) vax 08/17/20 Recorde d tetanus-diphtheria toxoids (Td)1 04/19/12 Recorded 1Result Comment: [10/12/2016] in paper chart Medications escitalopram 10 mg oral tablet 1 tablet = 10 mg, By Mouth, Daily, # 30 tablet, 5 Refills, Maintenance, 02/01/22 9:21:00 EDT, [id number], Partial fill upon patient request if the prescription is for a schedule II opioid drug., 158, cm, 02/01/22 8:58:00 EDT, Height Start Date: 02/01/22 Status: Ordered Problem List Condition Effective Dates Status Health Status Informant Abnormal weight gain(Confirmed) Active Anemia(Confirmed) Active Blind left eye(Confirmed) Active Overweight (BMI 25.0-29.9)(Confirmed) Active Depression(Confirmed) Active Pseudoseizures(Confirmed) Active Endometriosis(Confirmed) Active Epilepsy(Confirmed) Active Fibromyalgia(Confirmed) Active Hypothyroid(Confirmed) Active Leukopenia(Confirmed) Active Common migraine(Confirmed) Active Obese class I(Confirmed) Active Obesity(Confirmed) Active Colon polyps(Confirmed) Active Post traumatic stress disorder Active (PTSD)(Confirmed) Tobacco use(Confirmed) Active Upper respiratory infection(Confirmed) Active Procedures Procedure Date Related Diagnosis Body Site Status Liver donor Completed Vital Signs Most recent to oldest [Reference Range]: 1 Height 158 cm (02/01/22 8:58 AM) Weight 77.0 kg (02/01/22 8:58 AM) Oxygen Saturation [94-100 %] 98 % (02/01/22 8:58 AM) Pulse Rate [55-90 bpm] 77 bpm (02/01/22 8:58 AM) Body Mass Index [18.5-24.99] 30.84 *>HHI* (02/01/22 8:58 AM) Blood Pressure [90-138/55-84 mm Hg] 106/82 mm Hg (02/01/22 8:58 AM) Temperature [96.8-100.4 DegF] 97.4 DegF (02/01/22 8:58 AM) Mode of Delivery (Oxygen) Room air (02/01/22 8:58 AM) Blood pressure sites Arm, right (02/01/22 8:58 AM) Temperature Route Oral (02/01/22 8:58 AM) Weight Obtained Via Standing scale (02/01/22 8:58 AM) Social History Social History Type Response Smoking Status Former smoker; Tobacco user in household: Yes; Other: < 1/2ppd; entered on: 09/07/17 Sex Care Team PersonnelName: Hector GERMAN, Esequiel Kong Address: [address] [place] [address]
--- OUTSIDE RECORDS SUMMARY | 2022-05-18 15:20 | XMS_ITS | Continuity of Care Document ---
:1985 Author Organization [facility] Address [address] [place] [address]- Care Team Providers Name Role Phone Hector GERMAN, Esequiel Kong Primary Care Physician Encounter [facility] NBR [id number] Date(s): 12/23/21 - 04/22/22 [facility] [address] [place] [address]- Attending Physician: Bill Xiong MD Referring Physician: Not on Staff, Referring MD Allergies, Adverse Reactions, Alerts Substance Reaction [...] virus vaccine, inactivated 04/12/22 Given SARS-CoV-2 mRNA (lsaezta-hrvr-ktwec) vax 05/09/21 Recorde d SARS-CoV-2 mRNA (keloqza-topb-woewy) vax 09/14/20 Recorde d SARS-CoV-2 mRNA (rgvxywk-gqhc-enpay) vax 08/17/20 Recorde d tetanus-diphtheria toxoids (Td)1 04/19/12 Recorded 1Result Comment: [10/12/2016] in paper chart Medications SUMAtriptan 50 mg oral tablet See Instructions, 1 tablet By Mouth Once upon onset of headache may repeat dose in 2 hours if needed, # 9 tablet, 2 Refills, Soft Stop, 03/14/22 9:39:00 EDT, [id number], Partial fill upon patient request if the [...] Care Team PersonnelName: Parviz CANTU, Smiley Position: [facility] RN Member Role: Primary Care Nurse Name: Esequiel Young MD Position: [facility] Primary Care Physician Member Role: PCP Address: Address: [address] [place] [id number] Care Team Related PersonsName: SARAH BELLA Address: home [address] [place] [id number] Name: ANNITA MCKEON Address: home [address] [place] [address] Name: PATIENCE SALAZAR Address: home [address] [place] [address] Name: PATIENCE SALAZAR Address: home [address] [place] [address]
[2022-05-18 15:24] LABS: MANUAL DIFF FLAG NO
[2022-05-18 15:26] LABS: Basophils Percent Auto 0.7 % (0-2); Eosinophils Absolute Auto 0.1 X10*3/uL (0.0-0.4); Eosinophils Percent Auto 2.5 % (0-4); Hematocrit 37.9 % (37.0-47.0); Hemoglobin 12.8 g/dl (12.0-16.0); Imm Gran Abs Auto 0.01 X10*3/uL (0.00-0.03); Imm Gran Pct Auto 0.2 % (0.0-0.4); Lymphocytes Absolute Auto 1.5 X10*3/uL (1.2-4.9); Lymphocytes Percent Auto 37.3 % (20-40); Mean Corpuscular HGB Conc 33.8 g/dl (31.0-35.0); Mean Corpuscular Hemoglobin 31.5 pg (27.0-33.0); Mean Corpuscular Volume 93.3 fL (80.0-98.0); Mean Platelet Volume 9.4 fL (9.4-12.3); Monocytes Absolute Auto 0.4 X10*3/uL (0.1-1.2); Monocytes Percent Auto 8.7 % (2-11); Neutrophils Percent Auto 50.6 % (45-73); Platelet Count 224 X10*3/uL (160-400); Red Blood Count 4.06 X10*6/uL (4.20-5.50); Red Cell Distribution Width 12.6 % (11.0-16.0)
[2022-05-18 15:33] LABS: Appearance Urine Clear; Color Urine Yellow; Glucose Urine UA Negative (Negative); Leukocyte Esterase Urine Moderate (2+) (Negative); Nitrite Urine Negative (Negative); UMIC TRIGGER UACC YES; Urine Blood Negative (Negative); Urine Ketones Negative (Negative); Urine Protein Negative (Neg-Trace)
[2022-05-18 15:35] LABS: UPreg QC Valid YES; Urine Pregnancy NEGATIVE (NEGATIVE)
[2022-05-18 15:36] LABS: Bacteria Urine 4+ (None Seen); Hyaline Casts Urine 0-2 /LPF (0-2); RBC Urine 0-2 /HPF (0-2); Squamous Epithelial Cell Urine 0-2 /HPF (0-2); UACC Culture Trigger YES; WBC Urine 21-50 /HPF (0-5)
[2022-05-18 15:44] LABS: Alanine Aminotransferase 42 U/L (0-31); Albumin Level 4.3 g/dL (3.5-5.0); Alkaline Phosphatase 72 U/L (39-117); Anion Gap 10 (12-20); Aspartate Amino Transferase 23 U/L (5-31); Bilirubin Direct 0.2 mg/dL (0.0-0.5); Bilirubin Total 0.6 mg/dL (0.0-1.0); Blood Urea Nitrogen 10 mg/dL (9-16); Calcium 9.8 mg/dL (8.4-10.2); Carbon Dioxide 30 mmol/L (22-29); Chloride 108 mmol/L (96-108); Creatinine Clr Calc Pharmacy 96.7; Estimated Glomerular Filt Rate > 60; Glucose Random 90 mg/dL (60-115); Potassium 3.9 mmol/L (3.3-5.1); Sodium 144 mmol/L (135-145); Total Protein 6.9 g/dL (6.5-8.0)
[2022-05-18 16:41] LABS: Influenza A PCR NEGATIVE (Negative); Influenza B PCR NEGATIVE (Negative); Resp Syncy Virus RNA Qual PCR NEGATIVE (Negative); SARS COV2 PCR INHOUSE NEGATIVE (Negative)
[2022-05-18] MEDS: predniSONE 20 MG TABLET 60 MG PO (18:33)
[2022-05-23 18:54] LABS: Lyme Abs Screen <0.90 index
== END 2022-05-18 19:05 | disposition home or self-care (01) ==
PROVIDERS: Nurse Practitioner Family; Emergency Provider Emergency Medicine; PCP Internal Medicine
DX: G51.0 Bell's palsy (principal); Z20.828 Contact with and (suspected) exposure to other viral communicable diseases
CPT/HCPCS: 0241U; 70450; 80048; 80076; 81001; 81025; 85025; 86617; 86618; 87086; 87147; 99282; 99284

== ENCOUNTER 2022-06-14 10:00 | Outpatient (RCR) | payer OTHER, SELFPAY ==
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
--- NOTE | 2022-06-12 13:11 | PC.NURSE ---
06/12/22. Unable to complete nursing paperwork as patient left the program to supervisor picking crew her car.
--- NOTE | 2022-06-13 09:29 | HO.PHPIOP ---
I spoke with client about her absence she reports her child id sick and hopefully she will be in tomorrow
[2022-06-14 10:55] VITALS: BMI 33.8
[2022-06-14 10:56] VITALS: BP 100/68; PULSE 68; TEMP 36.2
--- NOTE | 2022-06-15 11:52 | HO.PHPIOP ---
Case opened in treatment team.
--- NOTE | 2022-06-19 09:36 | PC.NURSE ---
Patient did not show up to the program this morning. I called and spoke to Helene and she stated she has too much going on and will not be able to attend the program. Stated she has two funerals to attend this week and has upcoming medical appointments. Also is planning on moving in July. Stated her boyfriend whom she lives with has been supportive. Stated she is safe, no SI or thoughts to harm herself. She has the crisis numbers if needed. [facility] staff is aware.
== END 2022-06-14 23:59 | disposition home or self-care (01) ==
LOC: HO.PHPA 10:00
PROVIDERS: Visit Provider Psychiatry & Neurology Psychiatry
DX: F33.2 Major depressive disorder, recurrent severe without psychotic features (principal); F43.10 Post-traumatic stress disorder, unspecified; F41.1 Generalized anxiety disorder
CPT/HCPCS: 90791; 90853

== ENCOUNTER 2023-04-28 20:52 | Emergency (ER) | payer OTHER, SELFPAY ==
--- NOTE | 2023-04-28 | ECG_ITS ---
Test Reason : DYSPNEA Blood Pressure : / mmHG Vent. Rate : 077 BPM Atrial Rate : 077 BPM P-R Int : 180 ms QRS Dur : 080 ms QT Int : 380 ms P-R-T Axes : 023 062 021 degrees QTc Int : 430 ms Normal sinus rhythm Normal ECG No significant changes when compared with the previous EKG of 25 dec 2016 Referred By: Generic ED Physician Electronically Signed By:JOSE G JIMENEZ
--- NOTE | ~2023-04-28 | XR_ITS ---
EXAMINATION: XR CHEST CLINICAL INFORMATION: Chest pain. Shortness of breath COMPARISON: Chest x-ray March 16, 2021 TECHNIQUE: Frontal portable view of the chest was obtained. 2310 hours FINDINGS: No significant abnormality is noted involving the heart, lungs, mediastinum, bony thorax or soft tissues. Surgical clips right upper quadrant of abdomen XR/XR chest 1V IMPRESSION: Unremarkable examination.
[2023-04-28 21:07] VITALS: BP 116/77; PULSE 86; RESP 16; TEMP 36.6; O2SAT 97; BMI 34.8
[2023-04-28 21:41] LABS: Basophils Percent Auto 0.6 % (0-2); Eosinophils Absolute Auto 0.1 X10*3/uL (0.0-0.4); Eosinophils Percent Auto 3.1 % (0-4); Hematocrit 36.3 % (37.0-47.0); Hemoglobin 12.2 g/dl (12.0-16.0); Imm Gran Abs Auto 0.01 X10*3/uL (0.00-0.03); Imm Gran Pct Auto 0.3 % (0.0-0.4); Lymphocytes Absolute Auto 1.6 X10*3/uL (1.2-4.9); Lymphocytes Percent Auto 49.1 % (20-40); MANUAL DIFF FLAG SCAN; Mean Corpuscular HGB Conc 33.6 g/dl (31.0-35.0); Mean Corpuscular Hemoglobin 30.7 pg (27.0-33.0); Mean Corpuscular Volume 91.2 fL (80.0-98.0); Mean Platelet Volume 9.5 fL (9.4-12.3); Monocytes Absolute Auto 0.5 X10*3/uL (0.1-1.2); Monocytes Percent Auto 16.3 % (2-11); Neutrophils Percent Auto 30.6 % (45-73); Platelet Count 206 X10*3/uL (160-400); Red Blood Count 3.98 X10*6/uL (4.20-5.50); Red Cell Distribution Width 12.5 % (11.0-16.0); SCAN SMEAR FLAG 1; White Blood Count 3.2 X10*3/uL (4.8-10.8)
[2023-04-28 21:54] LABS: Alanine Aminotransferase 66 U/L (0-31); Alkaline Phosphatase 85 U/L (39-117); Anion Gap 12 (12-20); Aspartate Amino Transferase 39 U/L (5-31); Bilirubin Total 0.4 mg/dL (0.0-1.0); Blood Urea Nitrogen 10 mg/dL (9-16); Carbon Dioxide 27 mmol/L (22-29); Chloride 109 mmol/L (96-108); Creatinine Clr Calc Pharmacy 106.6; Estimated Glomerular Filt Rate > 60; Glucose Random 93 mg/dL (60-115); Potassium 3.8 mmol/L (3.3-5.1); Sodium 144 mmol/L (135-145); Total Protein 7.1 g/dL (6.5-8.0)
[2023-04-28 21:59] LABS: SLIDE REVIEW VERIFIED
[2023-04-28 22:40] VITALS: BP 111/68; PULSE 70; RESP 15; TEMP 37; O2SAT 100
--- NOTE | 2023-04-28 23:22 | ED_ITS ---
HPI - General Adult General Chief complaint: Dyspnea Stated complaint: covid+ sob Time Seen by Provider: 04/28/23 22:29 Source: patient Mode of arrival: ambulatory Limitations: no limitations History of Present Illness HPI narrative: This is a 37-year-old female history of anxiety, depression, PTSD presenting with fatigue, malaise myalgias, nausea, chest pain/tightness, congestion and shortness of breath for the past 3 days, patient reports for the past 3 days she has been isolating we she tested positive for COVID-19. She reports symptoms are not improving instead they seem to be getting worse. 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 She just wants make sure she is okay. Denies fevers, chills, vomiting, abdominal pain, headache, vision changes, dizziness or weakness. Related Data Previous Rx's Medication Instructions Recorded epinephrine 0.3 mg/0.3 mL 0.3 mg (0.3 mL) IM Q4H PRN 11/03/21 injection, auto-injector (EpiPen anaphylaxis #2 ea 2-Alec) risperidone 0.5 mg tablet 0.5 mg PO BID #14 tabs 06/12/22 Allergies Allergy/AdvReac Type Severity Reaction Status Date / Time aspirin [ASA] Allergy Unknown CRAP Verified 07/13/21 11:41 BLOOD bee pollen [BEE STINGS] Allergy Unknown ANAPHYLAXIS Verified 07/13/21 11:41 duloxetine [From CYMBALTA] Allergy Unknown SWELLING Verified 07/13/21 11:41 hydromorphone [From DILAUDID] Allergy Unknown ITCHY, Verified 07/13/21 11:41 VOMIT morphine [MORPHINE] Allergy Unknown SICK Verified 07/13/21 11:41 naproxen [NAPROXEN] Allergy Unknown CRAP Verified 07/13/21 11:41 BLOOD pregabalin [From LYRICA] Allergy Unknown SWELLING Verified 07/13/21 11:41 SEAFOOD Allergy Unknown UNKNOWN Uncoded 02/05/20 19:08 Review of Systems 2 Review of Systems: Constitutional : No Weight loss, No Fever, No Chills, + Fatigue, + Malaise ENT/Mouth : No sore throat, No Rhinorrhea Eyes: No Eye Pain, No Swelling, No Redness Cardiovascular : + Chest Pain, + SOB, No Dyspnea on Exertion, No Orthopnea, No Edema, No Palpitations Respiratory : No Cough, No Sputum, No Wheezing Gastrointestinal : + Nausea, No Vomiting, No Diarrhea, No Constipation, No abdominal Pain, No Hematochezia, No Melena Genitourinary : No Dysuria, No Urinary Frequency, No Hematuria, Musculoskeletal : No joint pain, No Myalgias, No Joint Swelling Skin : No Skin Lesions, No rash Neuro : No Weakness, No Numbness, No Dizziness, No Headache Psych : No Anxiety/Panic, No Depression All other systems reviewed and are negative Yes all other systems are reviewed and are negative [facility] Past Medical History Attestation statement: The following information was validated with the patient. Source: old records reviewed and nursing notes reviewed Medical History (Updated 04/28/23 @ 23:06 by RONY Nguyen) Neuropathy GERD (gastroesophageal reflux disease) IBS (irritable bowel syndrome) delivery delivered Fibromyalgia Blindness of left eye Surgical History (Updated 06/14/22 @ 10:49 by Chika Lynn RN) History of surgery of liver History of cholecystectomy H/O: hysterectomy History of tonsillectomy H/O eye surgery Social History Social History Household Members: Significant Other, Children and Other Household Members Other:: 2 dogs Patient Tobacco Use Status: Former Tobacco user Advance Directives: No Advance Directives Information Provided: No Physical Exam ED Vital Signs: Vital Signs - 24 hr 04/28/23 21:07 04/28/23 22:40 Temperature 97.9 F 98.6 F Pulse Rate 86 70 Respiratory Rate 16 15 Blood Pressure 116/77 111/68 Pulse Oximetry 97 100 Oxygen Delivery Method Room Air Room Air BMI result Body Mass Index 34.8 vss Appearance: Alert.? Oriented X3.? No acute distress.? Head: Normocephalic, atraumatic, no step-offs or deformities Eyes: Pupils equal, round and reactive to light.? CVS: Normal heart rate and rhythm.? Pulses normal.? Respiratory: No respiratory distress.? Breath sounds normal.? Abdomen: Soft and nontender.? Skin: Skin warm and dry.? Normal skin color.? Normal skin turgor.? Extremities: No lower extremity edema.? No calf ttp. 5/5 strength to bilateral upper and lower extremities Neuro: Oriented X 3.? No motor deficit.? No sensory deficit. CN 2-12 intact Course Reevaluation(s) Reevaluation #1: CBC with with chronic leukopenia, CBC appears to be a baseline no acute finding. Chemistry unremarkable. Troponin negative, EKG nonischemic. Transaminases slightly elevated likely secondary to viral illness. No abdominal tenderness to palpation no indication for imaging. Chest x-ray unremarkable. Patient well- appearing, saturating 98-100% on room air, not tachycardic. Will discharge patient home with prednisone, albuterol. Educated patient on diagnosis and treatment plan, answered all question, patient verbalizes understanding. At this time patient will be discharged home, advised to return with new or worsening symptoms. Educated on worrisome signs and symptoms and when to return. At this time I feel comfortable discharge home. Time: 23:41 Medical Decision Making Medical Decision Making [facility] Narrative: 1125 37-year-old female presents with complaints of fatigue, malaise, shortness of breath, chest discomfort, nausea, myalgias ongoing for the past 3 days. Physical examination benign History and physical exam concerning for viral illness, the symptoms are likely related to COVID-19. Unlikely pneumonia, pulmonary embolism ( perc negative), acute respiratory distress, ACS. No abdominal tenderness unlikely acute abdomen, appendicitis, cholecystitis, diverticulitis, pancreatitis. Will rule out metabolic derangements, anemia, UTI Plan labs, imaging, EKG Differential Diagnosis Differential Diagnoses: The differential diagnosis associated with the presentation includes History and physical exam concerning for viral illness, the symptoms are likely related to COVID-19. Unlikely pneumonia, pulmonary embolism, acute respiratory distress, ACS. No abdominal tenderness unlikely acute abdomen, appendicitis, cholecystitis, diverticulitis, pancreatitis. Will rule out metabolic derangements, anemia, UTI Admission/Observation Consideration of admission/observation: Escalation of care including admission/observation considered Unlikely Lab Data [facility] Lab Attestation statement: I reviewed the patient's lab results. 04/28/23 21:35 04/28/23 21:35 Labs: Lab Results 04/28/23 Range/Units 21:35 WBC 3.2 L (4.8-10.8) X10*3/uL RBC 3.98 L (4.20-5.50) X10*6/uL Hgb 12.2 (12.0-16.0) g/dl Hct 36.3 L (37.0-47.0) % MCV 91.2 (80.0-98.0) fL MCH 30.7 (27.0-33.0) pg MCHC 33.6 (31.0-35.0) g/dl RDW 12.5 (11.0-16.0) % Plt Count 206 (160-400) X10*3/uL MPV 9.5 (9.4-12.3) fL Immature Gran % (Auto) 0.3 (0.0-0.4) % Neut % (Auto) 30.6 L (45-73) % Lymph % (Auto) 49.1 H (20-40) % [facility] % (Auto) 16.3 H (2-11) % Eos % (Auto) 3.1 (0-4) % Baso % (Auto) 0.6 (0-2) % Lymph # (Auto) 1.6 (1.2-4.9) X10*3/uL [facility] [facility] # (Auto) 0.5 (0.1-1.2) X10*3/uL Eos # (Auto) 0.1 (0.0-0.4) X10*3/uL Baso # (Auto) 0.0 (0.0-0.2) X10*3/uL Abs Immat Gran (auto) 0.01 (0.00-0.03) X10*3/uL Absolute Neuts (auto) 1.0 L (2.0-8.3) x10*3/uL Absolute Nucleated RBC 0.000 (0.0-0.012) X10*3/uL Nucleated RBC % (auto) 0.0 (0.0-0.2) /100WBC Smear Tech's Comments VERIFIED Sodium 144 (135-145) mmol/L Potassium 3.8 (3.3-5.1) mmol/L Chloride 109 H (96-108) mmol/L Carbon Dioxide 27 (22-29) mmol/L Anion Gap 12 (12-20) BUN 10 (9-16) mg/dL Creatinine 0.73 (0.5-1.4) mg/dL Estim Creat Clear Calc 106.6 Estimated GFR > 60 Random Glucose 93 (60-115) mg/dL Calcium 9.0 D (8.4-10.2) mg/dL Total Bilirubin 0.4 (0.0-1.0) mg/dL AST 39 H (5-31) U/L ALT 66 H (0-31) U/L Alkaline Phosphatase 85 (39-117) U/L Troponin I High Sens < 2.7 (<3.5-17.0) ng/L Total Protein 7.1 (6.5-8.0) g/dL Albumin 4.0 (3.5-5.0) g/dL Independent Interpretation I performed an independent interpretation of an: EKG (Ventricular rate of 77, PA normal, QRS normal, QT/QTC normal. No ST elevations or inversions concerning for acute ischemia normal sinus rhythm noted.) and Plain X-Ray (XR/XR chest 1V IMPRESSION: Unremarkable examination. ) Radiology Impression Discussion of test interpretation with radiology: I have reviewed the radiologist's reading. Chronic Conditions Patient?s care impacted by: Other (PTSD, anxiety, depression) Critical Care Time Critical Care Time Critical Care Time: No Discharge Plan Discharge Clinical Impression: Chest pain, COVID Patient Disposition: Home, Self-Care Instructions: Chest Pain (ED), COVID-19 (Coronavirus Disease 2019) (ED) Additional Instructions: Take your medications as prescribed. If you were prescribed antibiotics today, it is important that you take your medication to their entirety, do not skip any doses, do not finish them early. Today you tested positive for COVID-19. Take Ibuprofen or Tylenol as needed for fevers or body aches. Quarantine for 5 days and ensure you wear a mask. After 5 days you should wear a mask for 5 days after that. Practice social distancing and good hand hygiene. Drink plenty of fluids. Follow-up with your primary care provider this week. Return to the emergency department with new or worsening symptoms. In case of emergency call 911 You can purchase a pulse oximeter from your local pharmacy or grocery store, and monitor your oxygen saturation if it goes below 94% you should return to the emergency department for further evaluation. XR/XR chest 1V IMPRESSION: Unremarkable examination. Prescriptions: No Action risperidone 0.5 mg tablet 0.5 mg PO BID Qty: 14 0RF epinephrine [EpiPen 2-Alec] 0.3 mg/0.3 mL auto-injector 0.3 mg IM Q4H PRN (Reason: anaphylaxis) Qty: 2 0RF Referrals: Esequiel Young MD [Primary Care Provider] - 2 days
[2023-04-28 23:29] LABS: Troponin-I High Sensitivity < 2.7 ng/L (<3.5-17.0)
== END 2023-04-29 00:43 | disposition home or self-care (01) ==
PROVIDERS: Physician Assistant; Emergency Provider Internal Medicine; PCP Internal Medicine
DX: U07.1 COVID-19 (principal); R06.00 Dyspnea, unspecified; R07.9 Chest pain, unspecified; R06.02 Shortness of breath; D72.819 Decreased white blood cell count, unspecified; R53.83 Other fatigue
CPT/HCPCS: 36415; 71045; 80053; 84484; 85025; 93005; 99284

== ENCOUNTER → 2023-04-28 21:25 | Outpatient (BNV) | payer OTHER, SELFPAY | PROVIDERS: Emergency Provider Internal Medicine; PCP Internal Medicine; Visit Provider Internal Medicine | DX: R06.02 Shortness of breath (principal) | CPT/HCPCS: 93010 ==

== ENCOUNTER 2024-05-12 20:19 | Emergency (ER) | payer OTHER, SELFPAY ==
--- NOTE | ~2024-05-12 | XR_ITS ---
EXAMINATION: XR LUMBOSACRAL SPINE CLINICAL INFORMATION: pain COMPARISON: None available. TECHNIQUE: Three views of the lumbosacral spine. FINDINGS: The alignment is normal. There is early/mild thoracolumbar degenerative change with endplate sclerosis and mild osteophyte formation. The bone mineralization is normal. There is no fracture. Soft tissues are unremarkable. XR/XR lumbar spine 2-3V IMPRESSION: Early/mild thoracolumbar degenerative change. No fracture. Electronically signed by: Howard Hernandez MD 05/13/2024 12:58 AM PAYAM MONDRAGON
[2024-05-12 20:27] VITALS: BP 122/75; PULSE 70; RESP 16; TEMP 36.2; O2SAT 100; BMI 32.4
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
[2024-05-12 21:43] VITALS: BP 112/70; PULSE 66; RESP 16; TEMP 36.4; O2SAT 96
[2024-05-13] MEDS: dexAMETHasone 4 MG TABLET PO (01:36)
[2024-05-13 01:58] VITALS: BP 112/70; PULSE 66; RESP 16; TEMP 36.4; O2SAT 96
== END 2024-05-13 02:00 | disposition home or self-care (01) ==
PROVIDERS: Emergency Provider Emergency Medicine; PCP Internal Medicine
DX: R20.0 Anesthesia of skin (principal); R20.2 Paresthesia of skin; S39.012A Strain of muscle, fascia and tendon of lower back, initial encounter; V43.52XA Car driver injured in collision with other type car in traffic accident, initial encounter; Y93.89 Activity, other specified; Y92.410 Unspecified street and highway as the place of occurrence of the external cause; Y99.9 Unspecified external cause status
CPT/HCPCS: 72100; 99283; 99284; J8540

== ENCOUNTER 2024-10-14 07:32 | Emergency (ER) | payer MEDICAID, SELFPAY ==
--- NOTE | ~2024-10-14 | CT_ITS ---
EXAMINATION: CT ABDOMEN AND PELVIS WITHOUT CONTRAST CLINICAL INFORMATION: Right flank pain. COMPARISON: None available. TECHNIQUE: Multidetector volumetric imaging was performed from the superior aspect of the liver through the pubic symphysis. Sagittal and coronal reformatted images were obtained on the technologist's workstation. This CT examination was performed using dose optimization techniques as appropriate, variously including the following: *Automated exposure control *Adjustment of mA and/or kV according to patient size (this includes techniques or standardized protocols for targeted exams where dose is matched to indication/reason for exam; i.e. extremities or head) *Use of iterative reconstruction technique DLP: 725 mGy centimeter. FINDINGS: Inadequate evaluation of the intra-abdominal organs and vascular structures due to lack of IV contrast. LUNG BASES: Subsegmental atelectasis versus scarring, left lung base. LIVER, GALLBLADDER, AND BILIARY TREE: Post surgical changes/volume loss right hepatic lobe. Absent gallbladder. No intrahepatic or extrahepatic biliary ductal dilatation. PANCREAS: No peripancreatic fluid collection. SPLEEN: Subcentimeter. Punctate calcifications likely granuloma. ADRENAL GLANDS: No nodular lesions. KIDNEYS AND URETERS: No hydronephrosis. No nephrolithiasis. No dilatation of the ureters. BLADDER: Fluid-filled. GASTROINTESTINAL TRACT: Gas and fluid-filled mildly prominent proximal small bowel loops with the small caliber distal ileal loops. No gross intestinal wall thickening. No pneumatosis intestinalis. Appendix is normal. Abundant stool, large intestine. No pneumoperitoneum. No ascites. ABDOMINAL WALL: Small fat-containing umbilical hernia. LYMPH NODES: No mesenteric or retroperitoneal lymphadenopathy. VASCULAR: No aneurysm, abdominal aorta. PELVIC VISCERA: Inadequate evaluation. OSSEOUS STRUCTURES: No acute fracture or listhesis. Bony pelvis is intact. Coxofemoral joints are intact with normal alignment. CT/CT abdomen pelvis wo IV con IMPRESSION: Consider mild enteritis resulting in proximal left hemiabdomen regional ileus versus less likely partial/intermittent mid small bowel obstruction. Fleischner guidelines were followed. Electronically signed by: Rich Mcpherson MD 10/14/2024 10:42 AM EDT
[2024-10-14 07:35] VITALS: BP 118/61; PULSE 78; RESP 18; TEMP 36.1; O2SAT 95; BMI 32.6
[2024-10-14 07:55] LABS: MANUAL DIFF FLAG NO
[2024-10-14 07:56] LABS: Basophils Percent Auto 0.6 % (0-2); Eosinophils Absolute Auto 0.1 X10*3/uL (0.0-0.4); Eosinophils Percent Auto 1.7 % (0-4); Hematocrit 39.8 % (37.0-47.0); Hemoglobin 13.8 g/dl (12.0-16.0); Imm Gran Abs Auto 0.01 X10*3/uL (0.00-0.03); Imm Gran Pct Auto 0.2 % (0.0-0.4); Lymphocytes Absolute Auto 1.6 X10*3/uL (1.2-4.9); Lymphocytes Percent Auto 34.1 % (20-40); Mean Corpuscular HGB Conc 34.7 g/dl (31.0-35.0); Mean Corpuscular Hemoglobin 31.7 pg (27.0-33.0); Mean Corpuscular Volume 91.5 fL (80.0-98.0); Mean Platelet Volume 9.4 fL (9.4-12.3); Monocytes Absolute Auto 0.4 X10*3/uL (0.1-1.2); Monocytes Percent Auto 8.2 % (2-11); Neutrophils Absolute Auto 2.6 x10*3/uL (2.0-8.3); Neutrophils Percent Auto 55.2 % (45-73); Platelet Count 237 X10*3/uL (160-400); Red Blood Count 4.35 X10*6/uL (4.20-5.50); Red Cell Distribution Width 12.2 % (11.0-16.0); White Blood Count 4.8 X10*3/uL (4.8-10.8)
[2024-10-14 08:10] LABS: Alanine Aminotransferase 49 U/L (0-31); Albumin Level 4.5 g/dL (3.5-5.0); Alkaline Phosphatase 54 U/L (39-117); Anion Gap 10 (12-20); Aspartate Amino Transferase 25 U/L (5-31); Bilirubin Direct 0.2 mg/dL (0.0-0.5); Bilirubin Total 0.5 mg/dL (0.0-1.0); Blood Urea Nitrogen 17 mg/dL (9-16); Calcium 9.3 mg/dL (8.4-10.2); Carbon Dioxide 23 mmol/L (22-29); Chloride 112 mmol/L (96-108); Creatinine Clr Calc Pharmacy 106.8; Estimated Glomerular Filt Rate > 60; Glucose Random 88 mg/dL (60-115); Lipase 48 U/L (8-78); Potassium 4.3 mmol/L (3.3-5.1); Sodium 141 mmol/L (135-145); Total Protein 7.2 g/dL (6.5-8.0)
[2024-10-14 08:38] VITALS: BP 115/70; PULSE 76; RESP 16; TEMP 36.8; O2SAT 97
[2024-10-14 08:42] LABS: Appearance Urine Clear; Color Urine Yellow; Glucose Urine UA Negative (Negative); Leukocyte Esterase Urine Negative (Negative); Nitrite Urine Negative (Negative); PH 5.5 (5.0-9.0); Specific Gravity - Urine >= 1.030 (1.005-1.025); UPreg QC Valid YES; Urine Blood Negative (Negative); Urine Ketones Negative (Negative); Urine Pregnancy NEGATIVE (NEGATIVE); Urine Protein Negative (Neg-Trace)
--- NOTE | 2024-10-14 08:42 | PC.NURSE ---
Addendum entered by Efe Cooper RN 10/14/24 08:47: Flank pain radiates to the right side of abdomen, last BM yesterday. Abdomen soft + bowel sounds Original Note: Patient presents to ED c/o bilateral flank pain rated 8/10. Patient stated It started 2 weeks ago and has got progressively worse Denies urinary symptoms, denies patient had hysterectomy 10 years ago. Denies sob. vss and up to date. Blood collected/sent to lab. Plan of care on going
--- NOTE | 2024-10-14 08:43 | ED.GENADULT ---
HPI - General Adult General Chief complaint: Abdominal Pain Stated complaint: Abd pain Time Seen by Provider: 10/14/24 08:41 Source: patient, RN notes reviewed and old records reviewed Mode of arrival: ambulatory Limitations: no limitations History of Present Illness ED Provider: Betty HPI narrative: Patient is a 39-year-old female with history of complete hysterectomy, partial liver donation in 2020 in [place], GERD, complex PTSD, MDD presenting to the emergency department with complaint of bilateral flank pain, right worse than left for the past 2 weeks. Associated nausea but denies vomiting or diarrhea. Denies urinary frequency, dysuria, hematuria but does report that she ?forgets to go to the bathroom sometimes. ? Denies fevers. Reports 1 episode of dark red rectal bleeding on Sunday, has known hemorrhoids. Has not check temperature but reports has felt chills and states she typically feels warm at baseline. MD complaint: flank pain Onset (ago): week(s) Related Data Previous Rx's ?Medication ?Instructions ?Recorded epinephrine 0.3 mg/0.3 mL 0.3 mg (0.3 mL) IM Q4H PRN 11/03/21 injection, auto-injector (EpiPen anaphylaxis #2 ea 2-Alec) risperidone 0.5 mg tablet 0.5 mg PO BID #14 tabs 06/12/22 albuterol sulfate 90 mcg/actuation 2 inh inhalation Q4-6H PRN 04/29/23 breath activated powder inhaler shortness of breath or wheezing #1 ea prednisone 20 mg tablet 40 mg (2 x 20 mg) PO DAILY 5 days 04/29/23 #10 tabs dexamethasone 4 mg tablet 4 mg PO DAILY #3 tabs 05/13/24 ondansetron 4 mg disintegrating 4 mg PO Q8H PRN nausea and 10/14/24 tablet vomiting #10 tabs Allergies Allergy/AdvReac Type Severity Reaction Status Date / Time aspirin [ASA] Allergy Unknown CRAP Verified 10/14/24 07:38 BLOOD bee pollen [BEE STINGS] Allergy Unknown ANAPHYLAXIS Verified 10/14/24 07:38 duloxetine [From CYMBALTA] Allergy Unknown SWELLING Verified 10/14/24 07:38 hydromorphone [From DILAUDID] Allergy Unknown ITCHY, Verified 10/14/24 07:38 VOMIT morphine [MORPHINE] Allergy Unknown SICK Verified 10/14/24 07:38 naproxen [NAPROXEN] Allergy Unknown CRAP Verified 10/14/24 07:38 BLOOD pregabalin [From LYRICA] Allergy Unknown SWELLING Verified 10/14/24 07:38 SEAFOOD Allergy Unknown UNKNOWN Uncoded 05/12/24 20:29 Review of Systems Review of Systems: As per hPI Yes all other systems are reviewed and are negative Constitutional: Constitutional: Reports as per HPI [facility] Past Medical History Medical History (Updated 10/14/24 @ 13:03 by Elzbieta eHrnández NP) Neuropathy GERD (gastroesophageal reflux disease) IBS (irritable bowel syndrome) delivery delivered Fibromyalgia Blindness of left eye Surgical History (Updated 06/14/22 @ 10:49 by Chika Lynn RN) History of surgery of liver History of cholecystectomy H/O: hysterectomy History of tonsillectomy H/O eye surgery Social History Social History Household Members: Significant Other, Children and Other Household Members Other:: 2 dogs Alcohol intake: current Alcohol intake frequency: does not drink Alcohol type: hard liquor Patient Tobacco Use Status: Former Tobacco user Smoked in Last 30 Days: No Use of substances other than those prescribed or required for medical reasons: No Substance Use Type: Marijuana Substance Use Frequency: Occasionally Advance Directives: No Advance Directives Information Provided: Yes Patient : No Physical Exam ED Vital Signs: Vital Signs - 24 hr 10/14/24 07:35 10/14/24 08:38 10/14/24 12:56 Temperature 97.0 F 98.2 F 97.9 F Pulse Rate 78 76 49 L Respiratory Rate 18 16 16 Blood Pressure 118/61 115/70 103/70 Pulse Oximetry 95 97 98 Oxygen Delivery Method Room Air Room Air Room Air BMI result Body Mass Index 32.6 Vital signs have been reviewed and appear to be correct. Blood pressure normal. Heart rate normal. Respiratory rate normal. Temperature normal. Oxygen saturation normal. Const General: cooperative, healthy appearing and no acute distress Orientation/consciousness: oriented to person, oriented to place, oriented to time and patient oriented x3 Limitations: no limitations HENMT Head: Yes normocephalic and Yes atraumatic Ears: external ears normal General nose exam: Normal external nose present Face and sinus: Yes face symmetric Mouth: oropharynx normal and moist mucous membranes Throat: Yes uvula midline Eyes Pupils: Equal, round and reactive pupils present Neck Neck: Yes normal visual inspection and Yes supple Resp Effort & Inspection: normal respiratory effort and able to speak in complete sentences Auscultation: clear to auscultation bilaterally Cardio Rate: regular rate Rhythm: regular rhythm Heart sounds: S1 normal heart sound present and S2 normal heart sound present GI Palpation (GI): Soft to palpation and nontender Auscultation: normoactive bowel sounds General: Yes CVA tenderness on the right Back/Spine/Pelvis Back: CVA tenderness Skin General skin exam: elasticity normal and turgor normal Neuro General: oriented to person, oriented to place, oriented to time, patient oriented x3, moves all extremities, no focal motor deficits and CN's II-XI intact bilaterally Cranial nerves: Yes Equal, round and reactive pupils present Cognition (Neuro): normal cognition Extrem General: Yes full ROM, Yes no pedal edema and Yes no calf tenderness Psych Mental Status: mental status grossly normal Affect: normal affect Thought process: Normal thought process present Medications Administered Discontinued Medications Generic Name Dose Route Start Last Admin Trade Name Freq PRN Reason Stop Dose Admin Acetaminophen 650 mg 10/14/24 11:53 10/14/24 11:58 Acetaminophen 325 Mg Tablet PO 10/14/24 11:54 650 mg ONCE ONE Administration Medical Decision Making Medical Decision Making [facility] Narrative: Patient is a 39-year-old female with history of complete hysterectomy, partial liver donation in 2020 in [place], GERD, complex PTSD, MDD presenting to the emergency department with complaint of bilateral flank pain, right worse than left for the past 2 weeks. On exam patient is awake, A+Ox3, VS WNL, afebrile, normal neurological exam without focal deficits, physical exam findings as above. Given reported symptoms and physical exam findings, initial differential includes but is not limited to UTI/pyelonephritis, renal colic, hydronephrosis, ureteral calculi. Labs unremarkable. UA is without evidence of infection. CT notable for mild enteritis resulting in regional ileus vs partial/intermittent SBO. My interpretation is in agreement with the radiologist's interpretation. Case discussed with Dr. Sun who agrees SBO unlikely, feels patient does not require surgical intervention. Will send prescription for zofran, refer to GI. Return precautions discussed, patient verbalized understanding of and agreement with plan. Differential Diagnosis Differential Diagnoses: The differential diagnosis associated with the presentation includes as per [facility] Admission/Observation Consideration of admission/observation: Escalation of care including admission/observation considered Patient would have been admitted to the hospital had their work up had any findings where hospital admission was appropriate and their clinical presentation warranted hospital admission. Consult Healthcare Provider Management of the patient was discussed with: Validation Architect (Dr. Sun) Lab Data [facility] Lab Attestation statement: I reviewed the patient's lab results. as per [facility] 10/14/24 07:51 10/14/24 07:51 Labs: Lab Results 10/14/24 10/14/24 Range/Units 07:51 08:33 WBC 4.8 (4.8-10.8) X10*3/uL RBC 4.35 (4.20-5.50) X10*6/uL Hgb 13.8 (12.0-16.0) g/dl Hct 39.8 (37.0-47.0) % MCV 91.5 (80.0-98.0) fL MCH 31.7 (27.0-33.0) pg MCHC 34.7 (31.0-35.0) g/dl RDW 12.2 (11.0-16.0) % Plt Count 237 (160-400) X10*3/uL MPV 9.4 (9.4-12.3) fL Immature Gran % (Auto) 0.2 (0.0-0.4) % Neut % (Auto) 55.2 (45-73) % Lymph % (Auto) 34.1 (20-40) % Sutter % (Auto) 8.2 (2-11) % Eos % (Auto) 1.7 (0-4) % Baso % (Auto) 0.6 (0-2) % Lymph # (Auto) 1.6 (1.2-4.9) X10*3/uL Sutter # (Auto) 0.4 (0.1-1.2) X10*3/uL Eos # (Auto) 0.1 (0.0-0.4) X10*3/uL Baso # (Auto) 0.0 (0.0-0.2) X10*3/uL Abs Immat Gran (auto) 0.01 (0.00-0.03) X10*3/uL Absolute Neuts (auto) 2.6 (2.0-8.3) x10*3/uL Absolute Nucleated RBC 0.000 (0.0-0.012) X10*3/uL Nucleated RBC % (auto) 0.0 (0.0-0.2) /100WBC Sodium 141 (135-145) mmol/L Potassium 4.3 (3.3-5.1) mmol/L Chloride 112 H (96-108) mmol/L Carbon Dioxide 23 (22-29) mmol/L Anion Gap 10 L (12-20) BUN 17 H (9-16) mg/dL Creatinine 0.69 (0.5-1.4) mg/dL Estim Creat Clear Calc 106.8 Estimated GFR > 60 Random Glucose 88 (60-115) mg/dL Calcium 9.3 (8.4-10.2) mg/dL Total Bilirubin 0.5 (0.0-1.0) mg/dL Direct Bilirubin 0.2 (0.0-0.5) mg/dL AST 25 (5-31) U/L ALT 49 H (0-31) U/L Alkaline Phosphatase 54 (39-117) U/L Total Protein 7.2 (6.5-8.0) g/dL Albumin 4.5 (3.5-5.0) g/dL Lipase 48 (8-78) U/L Beta HCG, Quant 5 mIU/mL Urine Color Yellow Urine Appearance Clear Urine pH 5.5 (5.0-9.0) Ur Specific [place] >= 1.030 H (1.005-1.025) Urine Protein Negative (Neg-Trace) mg/dL Urine Glucose (UA) Negative (Negative) mg/dL Urine Ketones Negative (Negative) mg/dL Urine Blood Negative (Negative) Urine Nitrite Negative (Negative) Ur Leukocyte Esterase Negative (Negative) Urine RBC 0-2 (0-2) /HPF Urine WBC 0-5 (0-5) /HPF Ur Squamous Epith Cells 0-2 (0-2) /HPF Urine Bacteria None Seen (None Seen) Hyaline Casts 0-2 (0-2) /LPF Urine Test NEGATIVE (NEGATIVE) Independent Interpretation I performed an independent interpretation of an: CT Scan Interpretation: mild enteritis resulting in regional ileus vs partial/intermittent SBO on CT a/p Radiology Impression Discussion of test interpretation with radiology: I have reviewed the radiologist's reading. Radiologist Impression: CT ABDOMEN AND PELVIS WITHOUT CONTRAST CLINICAL INFORMATION: Right flank pain. COMPARISON: None available. TECHNIQUE: Multidetector volumetric imaging was performed from the superior aspect of the liver through the pubic symphysis. Sagittal and coronal reformatted images were obtained on the technologist's workstation. This CT examination was performed using dose optimization techniques as appropriate, variously including the following: *Automated exposure control *Adjustment of mA and/or kV according to patient size (this includes techniques or standardized protocols for targeted exams where dose is matched to indication/reason for exam; i.e. extremities or head) *Use of iterative reconstruction technique DLP: 725 mGy centimeter. FINDINGS: Inadequate evaluation of the intra-abdominal organs and vascular structures due to lack of IV contrast. LUNG BASES: Subsegmental atelectasis versus scarring, left lung base. LIVER, GALLBLADDER, AND BILIARY TREE: Post surgical changes/volume loss right hepatic lobe. Absent gallbladder. No intrahepatic or extrahepatic biliary ductal dilatation. PANCREAS: No peripancreatic fluid collection. SPLEEN: Subcentimeter. Punctate calcifications likely granuloma. ADRENAL GLANDS: No nodular lesions. KIDNEYS AND URETERS: No hydronephrosis. No nephrolithiasis. No dilatation of the ureters. BLADDER: Fluid-filled. GASTROINTESTINAL TRACT: Gas and fluid-filled mildly prominent proximal small bowel loops with the small caliber distal ileal loops. No gross intestinal wall thickening. No pneumatosis intestinalis. Appendix is normal. Abundant stool, large intestine. No pneumoperitoneum. No ascites. ABDOMINAL WALL: Small fat-containing umbilical hernia. LYMPH NODES: No mesenteric or retroperitoneal lymphadenopathy. VASCULAR: No aneurysm, abdominal aorta. PELVIC VISCERA: Inadequate evaluation. OSSEOUS STRUCTURES: No acute fracture or listhesis. Bony pelvis is intact. Coxofemoral joints are intact with normal alignment. CT/CT abdomen pelvis wo IV con IMPRESSION: Consider mild enteritis resulting in proximal left hemiabdomen regional ileus versus less likely partial/intermittent mid small bowel obstruction. External Record Review External record reviewed: Inpatient record, Office record and Outpatient record Prescription Management I considered prescription management with: Other Discharge Plan Discharge Clinical Impression: Abdominal pain Patient Disposition: Home, Self-Care Instructions: Abdominal Pain (ED) Additional Instructions: You have been evaluated in the emergency department today for abdominal pain. Your evaluation did not show evidence of medical conditions requiring emergent intervention at this time. We are referring you to GI for further evaluation of your symptoms. Please schedule an appointment with your primary care physician. Return to the emergency department if you experience worsening or uncontrolled pain, fevers 100.4? F or greater, recurrent vomiting, inability to tolerate food or fluids by mouth, bloody stools or vomit, black or tarry stools, or any other concerning symptoms. Prescriptions: New ondansetron 4 mg tablet,disintegrating 4 mg PO Q8H PRN (Reason: nausea and vomiting) Qty: 10 0RF No Action risperidone 0.5 mg tablet 0.5 mg PO BID Qty: 14 0RF epinephrine [EpiPen 2-Alec] 0.3 mg/0.3 mL auto-injector 0.3 mg IM Q4H PRN (Reason: anaphylaxis) Qty: 2 0RF prednisone 20 mg tablet 40 mg PO DAILY 5 Days Qty: 10 0RF albuterol sulfate 90 mcg/actuation aerosol powdr breath activated 2 inh inhalation Q4-6H PRN (Reason: shortness of breath or wheezing) Qty: 1 0RF dexamethasone 4 mg tablet 4 mg PO DAILY Qty: 3 0RF Referrals: [facility] [Provider Group] - 1 week (abd/R flank pain x 2 weeks) Print Language: Danish
[2024-10-14 08:47] LABS: Bacteria Urine None Seen (None Seen); Hyaline Casts Urine 0-2 /LPF (0-2); RBC Urine 0-2 /HPF (0-2); Squamous Epithelial Cell Urine 0-2 /HPF (0-2); WBC Urine 0-5 /HPF (0-5)
[2024-10-14 09:23] LABS: HCG Quantitative 5 mIU/mL
[2024-10-14] MEDS: Acetaminophen 325 MG TABLET 650 MG PO (11:58)
[2024-10-14 12:56] VITALS: BP 103/70; PULSE 49; RESP 16; TEMP 36.6; O2SAT 98
[2024-10-14 13:35] VITALS: BP 103/69; PULSE 47; RESP 14; TEMP 36.5; O2SAT 98
== END 2024-10-14 13:43 | disposition home or self-care (01) ==
PROVIDERS: Registered Nurse Emergency; Emergency Provider Emergency Medicine; PCP Internal Medicine
DX: R10.2 Pelvic and perineal pain (principal); R11.0 Nausea; Z79.899 Other long term (current) drug therapy; Z87.891 Personal history of nicotine dependence
CPT/HCPCS: 36415; 74176; 80048; 80076; 81001; 81025; 83690; 84702; 85025; 99284

== ENCOUNTER → 2024-10-14 10:06 | Outpatient (BNV) | payer MEDICAID, SELFPAY | PROVIDERS: Emergency Provider Emergency Medicine; PCP Internal Medicine; Visit Provider Radiology Diagnostic Radiology | DX: R10.32 Left lower quadrant pain (principal) | CPT/HCPCS: 74176 ==

== ENCOUNTER 2024-11-22 10:06 | Emergency (ER) | payer MEDICAID, SELFPAY ==
--- NOTE | ~2024-11-22 | XR_ITS ---
CLINICAL HISTORY: stubbed left great toe 3 view left 1st toe Comparison: None provided Findings: Bones intact. No dislocations. No significant arthritic change. No erosions. No radiopaque foreign body. IMPRESSION: 1. No acute findings This document has been electronically signed by: Max Cedeño MD on 11/22/2024 10:35:04
[2024-11-22 10:11] VITALS: BP 119/68; PULSE 97; RESP 18; TEMP 36.4; O2SAT 95; BMI 32.0
--- NOTE | 2024-11-22 10:59 | ED.LOWEXIN ---
HPI - Extremity Injury (Lower) General Chief Complaint: Extremity Injury, Lower Stated Complaint: l foot ankle toes pain Time Seen by Provider: 11/22/24 10:49 Source: patient Mode of arrival: ambulatory Limitations: no limitations History of Present Illness ED Provider: DR. Aburto HPI Narrative: 39-year-old female came in for evaluation of left great toe pain after she stubbed it last night while she was alcohol intoxicated. Injury to great toe nail (nail is from the nail bed only hanging at the base) Otherwise no fall, no head injury, no neck pain, no CP, SOB, no other pain. Related Data Previous Rx's ?Medication ?Instructions ?Recorded epinephrine 0.3 mg/0.3 mL 0.3 mg (0.3 mL) IM Q4H PRN 11/03/21 injection, auto-injector (EpiPen anaphylaxis #2 ea 2-Alec) risperidone 0.5 mg tablet 0.5 mg PO BID #14 tabs 06/12/22 albuterol sulfate 90 mcg/actuation 2 inh inhalation Q4-6H PRN 04/29/23 breath activated powder inhaler shortness of breath or wheezing #1 ea prednisone 20 mg tablet 40 mg (2 x 20 mg) PO DAILY 5 days 04/29/23 #10 tabs dexamethasone 4 mg tablet 4 mg PO DAILY #3 tabs 05/13/24 ondansetron 4 mg disintegrating 4 mg PO Q8H PRN nausea and 10/14/24 tablet vomiting #10 tabs Allergies Allergy/AdvReac Type Severity Reaction Status Date / Time aspirin (ASA) Allergy Unknown CRAP Verified 11/22/24 10:13 BLOOD bee pollen (BEE STINGS) Allergy Unknown ANAPHYLAXIS Verified 11/22/24 10:13 duloxetine (From CYMBALTA) Allergy Unknown SWELLING Verified 11/22/24 10:13 hydromorphone (From DILAUDID) Allergy Unknown ITCHY, Verified 11/22/24 10:13 VOMIT morphine (MORPHINE) Allergy Unknown SICK Verified 11/22/24 10:13 naproxen (NAPROXEN) Allergy Unknown CRAP Verified 11/22/24 10:13 BLOOD pregabalin (From LYRICA) Allergy Unknown SWELLING Verified 11/22/24 10:13 SEAFOOD Allergy Unknown UNKNOWN Uncoded 05/12/24 20:29 Review of Systems Review of Systems: All other systems are reviewed and are negative Constitutional: Reports as per HPI and Reports no additional constitutional complaints Eyes: Reports as per HPI and Reports no additional eye complaints Reports system reviewed and no additional complaints, except as documented Cardiovascular: Reports as per HPI and Reports no additional cardiovascular complaints Respiratory: Reports as per HPI and Reports no additional respiratory complaints Gastrointestinal: Reports as per HPI and Reports no additional gastrointestinal complaints Genitourinary: Reports no additional female genitourinary complaints Musculoskeletal: Reports no additional musculoskeletal complaints Skin/Breast: Reports system reviewed and no additional complaints, except as docu Psychiatric: Reports no additional psychiatric complaints Endocrine: Reports no additional endocrine complaints Hematologic/Lymphatic: Reports no additional hematologic/lymphatic complaints Allergic/Immunologic: Reports no additional allergic/immunologic complaints Reports system reviewed and no additional complaints, except as documented and Reports Abnormal speech present [facility] Past Medical History Medical History Neuropathy GERD (gastroesophageal reflux disease) IBS (irritable bowel syndrome) delivery delivered Fibromyalgia Blindness of left eye Surgical History History of surgery of liver History of cholecystectomy H/O: hysterectomy History of tonsillectomy H/O eye surgery Social History Social History Household Members: Significant Other, Children and Other Household Members Other:: 2 dogs Alcohol intake: current Alcohol intake frequency: does not drink Alcohol type: hard liquor Patient Tobacco Use Status: Former Tobacco user Substance Use Type: Marijuana Advance Directives: No Advance Directives Information Provided: No Physical Exam Vital Signs: Vital Signs: Last Vital Signs Temp 97.6 F 11/22/24 10:11 Pulse 97 11/22/24 10:11 Resp 18 11/22/24 10:11 BP 119/68 11/22/24 10:11 Pulse Ox 95 11/22/24 10:11 O2 Del Method Room Air 11/22/24 10:11 BMI result Body Mass Index 32.0 Vital signs have been reviewed and appear to be correct. Blood pressure elevated. Heart rate normal. Respiratory rate normal. Temperature normal. Oxygen saturation normal. Appearance: Alert. Oriented X3. No acute distress. Head: Normal external exam. Normocephalic. Atraumatic. No Doe signs noted. No raccoon eyes noted Eyes: PERRLA. EOMI. Conjunctiva and sclera normal. Eyelids normal. ENT: TM's Normal. Pharynx normal. Uvula midline. Moist mucous membranes. No trismus noted. No drooling noted. No muffled voice noted. Neck: Normal inspection. Neck supple. FROM. No adenopathy. Thyroid Normal. No meningeal signs. No neck mass noted. CVS: Normal heart rate and rhythm. Heart sound normal. No murmurs noted. Pulses normal throughout. Respiratory: No respiratory distress. Painless inspiration. Breath sounds normal. No wheezes/rales/rhonchi noted. Chest nontender. No accessory muscle usage noted or decreased air movement noted. Abdomen: Soft and nontender. Bowel sounds normal in all 4 quadrants. No distention noted. No organomegaly noted. No visible injury noted. Back: No CVA tenderness. Full range of motion noted. Skin: Skin warm and dry. Normal skin color. Normal skin turgor. No rashes/lesions/lacerations noted. Extremities: left foot: No deformity, no step-off, injury to the great toe nail with almost complete avulsion of the nail. No nail bed laceration or injury. Neuro: Oriented X 3. Cranial nerve exam: II-XII are grossly intact No motor deficit. No sensory deficit. Reflexes normal. Course Reevaluation(s) Reevaluation #1: great nail avulsion s/p of nail. X-ray show no acute fracture. Time: 11:49 Medications Administered Discontinued Medications Generic Name Dose Route Start Last Admin Trade Name Freq PRN Reason Stop Dose Admin Acetaminophen 650 mg 11/22/24 10:58 11/22/24 11:05 Acetaminophen 325 Mg Tablet PO 11/22/24 10:59 650 mg ONCE ONE Administration Lidocaine HCl 5 ml 11/22/24 10:58 11/22/24 11:04 Lidocaine Hcl 1 % Mpf 5 Ml Vial SUBCUT 11/22/24 10:59 5 ml ONCE ONE Administration Medical Decision Making Differential Diagnosis Differential Diagnoses: The differential diagnosis associated with the presentation includes ( Nail avulsion, to fracture.) Admission/Observation Consideration of admission/observation: Escalation of care including admission/observation considered Procedures Nail Trephination Time out: Yes Location (toes): left ( First digit) Sterile prep: betadine ( lidocaine 1% 3 mL with use to do ring nerve block, was removed, postprocedure complication, nail bed show no laceration.) Discharge Plan Discharge Clinical Impression: Nail avulsion of toe Patient Disposition: Home, Self-Care Instructions: Nail Removal (ED) Prescriptions: No Action risperidone 0.5 mg tablet 0.5 mg PO BID Qty: 14 0RF epinephrine [EpiPen 2-Alec] 0.3 mg/0.3 mL auto-injector 0.3 mg IM Q4H PRN (Reason: anaphylaxis) Qty: 2 0RF prednisone 20 mg tablet 40 mg PO DAILY 5 Days Qty: 10 0RF albuterol sulfate 90 mcg/actuation aerosol powdr breath activated 2 inh inhalation Q4-6H PRN (Reason: shortness of breath or wheezing) Qty: 1 0RF dexamethasone 4 mg tablet 4 mg PO DAILY Qty: 3 0RF ondansetron 4 mg tablet,disintegrating 4 mg PO Q8H PRN (Reason: nausea and vomiting) Qty: 10 0RF Referrals: Esequiel Young MD [Primary Care Provider, Internal Medicine] Stand Alone Forms: Work/School Release Print Language: Lao
[2024-11-22] MEDS: Lidocaine HCl 1 % MPF 5 ML VIAL SUBCUT (11:04)
[2024-11-22 11:57] VITALS: BP 119/68; PULSE 97; RESP 18; TEMP 36.4; O2SAT 95
== END 2024-11-22 12:34 | disposition home or self-care (01) ==
PROVIDERS: Emergency Provider Emergency Medicine; PCP Internal Medicine
DX: S91.202A Unspecified open wound of left great toe with damage to nail, initial encounter (principal); X58.XXXA Exposure to other specified factors, initial encounter; Y93.9 Activity, unspecified; Y92.9 Unspecified place or not applicable; Y99.9 Unspecified external cause status
CPT/HCPCS: 11730; 73660; 99284; J2003

== ENCOUNTER → 2024-11-22 10:24 | Outpatient (BNV) | payer MEDICAID, SELFPAY | PROVIDERS: Emergency Provider Emergency Medicine; PCP Internal Medicine; Visit Provider Radiology Vascular & Interventional Radiology | DX: M79.675 Pain in left toe(s) (principal) | CPT/HCPCS: 73660 ==

== ENCOUNTER 2025-03-06 09:58 | Emergency (ER) | payer MEDICAID, SELFPAY ==
--- NOTE | ~2025-03-06 | CT_ITS ---
EXAMINATION: CT ABDOMEN AND PELVIS WITH CONTRAST CLINICAL INFORMATION: Abdominal pain. Hematuria. 25 pounds weight loss. COMPARISON: October 14, 2024 TECHNIQUE: Multidetector volumetric images were obtained from the superior aspect of the liver through the pubic symphysis following administration 85 mL of Omnipaque 350 intravenous contrast. Sagittal and coronal reformatted images were obtained on the technologist's workstation. Oral contrast: No This CT examination was performed using dose optimization techniques as appropriate, variously including the following: *Automated exposure control *Adjustment of mA and/or kV according to patient size (this includes techniques or standardized protocols for targeted exams where dose is matched to indication/reason for exam; i.e. extremities or head) *Use of iterative reconstruction technique. DLP: 671 mGy centimeter. FINDINGS: LUNG BASES: No acute airspace disease. LIVER, GALLBLADDER, AND BILIARY TREE: Status post partial resection right hepatic lobe. No focal enhancing mass in the liver. The main pulmonary arteries and main hepatic veins are patent. No intrahepatic biliary ductal dilatation. Gallbladder is absent/cholecystectomy. Common bile duct measures 7 mm. PANCREAS: Questionable 2 mm cyst in the head of the pancreas. No main pancreatic ductal dilatation. No peripancreatic fluid collection. No enhancing pancreatic mass. SPLEEN: 9 cm. No focal mass. Punctate calcification likely granuloma. ADRENAL GLANDS: No nodular lesions. KIDNEYS AND URETERS: No hydronephrosis. No gross renal mass. No gross nephrolithiasis. Normal enhancement pattern of the renal parenchyma. BLADDER: Fluid-filled with wall thickening and poor distention. GASTROINTESTINAL TRACT: Abundant stool throughout the large intestine. Appendix is normal. No intestinal obstruction pattern. Gas and fluid-filled mildly prominent small bowel loops in the left lower abdomen likely distal distal jejunal proximal ileal loops. No pneumatosis intestinalis. ABDOMINAL WALL: Small tiny fat-containing umbilical hernia. Metallic piercing, umbilical. LYMPH NODES: Nonspecific mild prominent mesenteric and inguinal. VASCULAR: No aneurysm or dissection, abdominal aorta. PELVIC VISCERA: Absent. OSSEOUS STRUCTURES: Multilevel thoracolumbar spondylosis without acute fracture or gross listhesis. Metallic piercing, nipple areola region CT/CT abdomen pelvis w IV con IMPRESSION: Mild enteritis in the correct clinical settings. No gross masses. Fleischner guidelines were followed. Electronically signed by: Rich Mcpherson MD 03/06/2025 11:45 AM EDT RP
[2025-03-06 10:05] VITALS: BP 128/56; PULSE 77; RESP 18; TEMP 36.6; O2SAT 98; BMI 31.3
--- NOTE | 2025-03-06 10:19 | ED.GENADULT ---
HPI - General Adult General Chief complaint: Abdominal Pain Stated complaint: ?uti, blood in urine. bladder/ kidney pain Time Seen by Provider: 03/06/25 10:18 Source: patient Limitations: no limitations History of Present Illness ED Provider: BEHZAD HPI narrative: 39 yo female with PMH of liver donor, anxiety, PTSD, fibromyalgia, prior LUCY and SBO here with c/o not feeling great for a month with 20lb weight loss. She saw her PCP earlier this week and was started on macrobid - no culture done. She notes worsening abdominal pain, nausea, hematuria and flank pain. She has no known hx of renal colic. She has no fevers. MD complaint: weight loss, abdominal pain Location: abdomen Radiation: non-radiation Severity: moderate Quality: aching Pain Consistency: constant Relieving factors: none Exacerbating factors: none Associated symptoms: loss of appetite and nausea/vomiting Treatments prior to arrival: none Related Data Previous Rx's ?Medication ?Instructions ?Recorded epinephrine 0.3 mg/0.3 mL 0.3 mg (0.3 mL) IM Q4H PRN 11/03/21 injection, auto-injector (EpiPen anaphylaxis #2 ea 2-Alec) risperidone 0.5 mg tablet 0.5 mg PO BID #14 tabs 06/12/22 albuterol sulfate 90 mcg/actuation 2 inh inhalation Q4-6H PRN 04/29/23 breath activated powder inhaler shortness of breath or wheezing #1 ea prednisone 20 mg tablet 40 mg (2 x 20 mg) PO DAILY 5 days 04/29/23 #10 tabs dexamethasone 4 mg tablet 4 mg PO DAILY #3 tabs 05/13/24 ondansetron 4 mg disintegrating 4 mg PO Q8H PRN nausea and 10/14/24 tablet vomiting #10 tabs hydrocodone 2.5 mg-acetaminophen 1 tab PO TID PRN pain #4 tabs 11/23/24 325 mg tablet hydrocodone 5 mg-acetaminophen 325 1 tab PO Q8H PRN pain #4 tabs 11/23/24 mg tablet Allergies Allergy/AdvReac Type Severity Reaction Status Date / Time aspirin (ASA) Allergy Unknown CRAP Verified 03/06/25 10:09 BLOOD bee pollen (BEE STINGS) Allergy Unknown ANAPHYLAXIS Verified 03/06/25 10:09 duloxetine (From CYMBALTA) Allergy Unknown SWELLING Verified 03/06/25 10:09 hydromorphone (From DILAUDID) Allergy Unknown ITCHY, Verified 03/06/25 10:09 VOMIT morphine (MORPHINE) Allergy Unknown SICK Verified 03/06/25 10:09 naproxen (NAPROXEN) Allergy Unknown CRAP Verified 03/06/25 10:09 BLOOD pregabalin (From LYRICA) Allergy Unknown SWELLING Verified 03/06/25 10:09 SEAFOOD Allergy Unknown UNKNOWN Uncoded 05/12/24 20:29 Review of Systems Review of Systems: Constitutional : pos Weight loss, No Fever, No Chills ENT/Mouth : No sore throat, No Rhinorrhea Eyes: No Swelling, No Redness Cardiovascular : No Chest Pain, No SOB, No Edema Respiratory : No Cough, No Sputum, No Wheezing Gastrointestinal : Positive Nausea, no Vomiting,no Diarrhea, positive abdominal Pain, No Hematochezia, No Melena Genitourinary : No Dysuria, No Urinary Frequency, pos Hematuria, No Urgency Musculoskeletal : No joint pain, No Myalgias, No Joint Swelling Skin : No Skin Lesions, No rash Neuro : No Weakness, No Numbness, No Dizziness, No Headache All other systems reviewed and are negative. [facility] Past Medical History Attestation statement: The following information was validated with the patient. Source: old records reviewed Medical History Neuropathy GERD (gastroesophageal reflux disease) IBS (irritable bowel syndrome) delivery delivered Fibromyalgia Blindness of left eye Surgical History History of surgery of liver History of cholecystectomy H/O: hysterectomy History of tonsillectomy H/O eye surgery Social History Social History Household Members: Significant Other, Children and Other Household Members Other:: 2 dogs Alcohol intake: current Alcohol intake frequency: does not drink Alcohol type: hard liquor Patient Tobacco Use Status: Former Tobacco user Substance Use Type: Marijuana Advance Directives: Yes Advance Directives Information Provided: No Advance Directives on File: No Physical Exam ED Vital Signs: Vital Signs - 24 hr 03/06/25 10:05 Temperature 97.8 F Pulse Rate 77 Respiratory Rate 18 Blood Pressure 128/56 L Pulse Oximetry 98 Oxygen Delivery Method Room Air BMI result Body Mass Index 31.3 Appearance: Alert. Oriented X3. No acute distress. Eyes: Pupils equal, round and reactive to light. ENT: Pharynx normal. Neck: Normal inspection. Neck supple. CVS: Normal heart rate and rhythm. Pulses normal. Respiratory: No respiratory distress. Breath sounds normal. Abdomen: Soft and mild diffuse ttp Skin: Skin warm and dry. Normal skin color. Normal skin turgor. Extremities: No lower extremity edema. No calf ttp Neuro: Oriented X 3. No motor deficit. No sensory deficit. CN2-12 intact Course Course Course Narrative: RME: 39 yold female with pmh of total hysterectomy and kidney stones presents to the ED for bilateral flank pain and blood clots in urine. labs ordered Medications Administered Discontinued Medications Generic Name Dose Route Start Last Admin Trade Name Freq PRN Reason Stop Dose Admin Ceftriaxone Sodium 1 gm 03/06/25 11:48 03/06/25 11:58 Ceftriaxone Sodium 1 Gm Vial IVPUSH 03/06/25 11:49 1 gm ONCE ONE Administration Lactated Ringer's 1,000 mls @ 999 mls/hr 03/06/25 10:29 03/06/25 10:53 Lr IV 03/06/25 11:29 999 mls/hr .Q1H1M ONE Administration Iohexol 100 ml 03/06/25 11:23 03/06/25 11:24 Iohexol 350 Mg/Ml 100 Ml Infus..Btl IV 03/06/25 11:24 85 ml ONCE ONE Administration Ondansetron HCl 4 mg 03/06/25 10:29 03/06/25 10:56 Ondansetron Hcl 4 Mg/2 Ml Vial IVPUSH 03/06/25 10:30 Not Given ONCE ONE Medical Decision Making Medical Decision Making MDM Narrative: 39 yo female with PMH of liver donor, anxiety, PTSD, fibromyalgia, prior LUCY and SBO here with c/o hematuria and pressure with pain. At this time not toxic, overall well appearing and non acute abdomen. She has taken a dose of macrobid. At this time will need labs, UA, CT scan for hydro/stone. She has no diarrhea changed from baseline. Differential Diagnosis Differential Diagnoses: The differential diagnosis associated with the presentation includes renal colic, cystitis, hematuria Admission/Observation Consideration of admission/observation: Escalation of care including admission/observation considered labs reassuring, VS stable, no acute findings on CT scan Lab Data MDM Lab Attestation statement: I reviewed the patient's lab results. 03/06/25 10:34 03/06/25 10:34 Labs: Lab Results 03/06/25 03/06/25 Range/Units 10:34 10:51 WBC 4.3 L (4.8-10.8) X10*3/uL RBC 4.03 L (4.20-5.50) X10*6/uL Hgb 12.8 (12.0-16.0) g/dl Hct 37.7 (37.0-47.0) % MCV 93.5 (80.0-98.0) fL MCH 31.8 (27.0-33.0) pg MCHC 34.0 (31.0-35.0) g/dl RDW 12.3 (11.0-16.0) % Plt Count 205 (160-400) X10*3/uL MPV 9.4 (9.4-12.3) fL Immature Gran % (Auto) 0.2 (0.0-0.4) % Neut % (Auto) 58.3 (45-73) % Lymph % (Auto) 31.9 (20-40) % Yancey % (Auto) 7.7 (2-11) % Eos % (Auto) 1.4 (0-4) % Baso % (Auto) 0.5 (0-2) % Lymph # (Auto) 1.4 (1.2-4.9) X10*3/uL [place]y # (Auto) 0.3 (0.1-1.2) X10*3/uL Eos # (Auto) 0.1 (0.0-0.4) X10*3/uL Baso # (Auto) 0.0 (0.0-0.2) X10*3/uL Abs Immat Gran (auto) 0.01 (0.00-0.03) X10*3/uL Absolute Neuts (auto) 2.5 (2.0-8.3) x10*3/uL Absolute Nucleated RBC 0.000 (0.0-0.012) X10*3/uL Nucleated RBC % (auto) 0.0 (0.0-0.2) /100WBC Sodium 143 (135-145) mmol/L Potassium 4.0 (3.3-5.1) mmol/L Chloride 112 H (96-108) mmol/L Carbon Dioxide 23 (22-29) mmol/L Anion Gap 12 (12-20) BUN 9 (9-16) mg/dL Creatinine 0.63 (0.5-1.4) mg/dL Estim Creat Clear Calc 114.6 Estimated GFR > 60 Random Glucose 87 (60-115) mg/dL Calcium 9.0 (8.4-10.2) mg/dL Total Bilirubin 0.4 (0.0-1.0) mg/dL Direct Bilirubin 0.1 (0.0-0.5) mg/dL AST 48 H (5-31) U/L ALT 77 H (0-31) U/L Alkaline Phosphatase 64 (39-117) U/L Total Protein 6.8 (6.5-8.0) g/dL Albumin 4.4 (3.5-5.0) g/dL Lipase 28 (8-78) U/L TSH 1.15 (0.32-4.0) uIU/mL Urine Color Yellow Urine Appearance Clear Urine pH 6.5 (5.0-9.0) Ur Specific [place] 1.020 (1.005-1.025) Urine Protein Negative (Neg-Trace) mg/dL Urine Glucose (UA) Negative (Negative) mg/dL Urine Ketones Negative (Negative) mg/dL Urine Blood Negative (Negative) Urine Nitrite Negative (Negative) Ur Leukocyte Esterase Trace H (Negative) Urine RBC 0-2 (0-2) /HPF Urine WBC 6-10 H (0-5) /HPF Ur Squamous Epith Cells 6-10 (0-2) /HPF Urine Bacteria None Seen (None Seen) Hyaline Casts 0-2 (0-2) /LPF Independent Interpretation I performed an independent interpretation of an: CT Scan (no cause of pain) Radiology Impression Discussion of test interpretation with radiology: I have reviewed the radiologist's reading. External Record Review External record reviewed: Outpatient record Prescription Management I considered prescription management with: Other Discharge Plan Discharge Clinical Impression: Abdominal pain, Acute hemorrhagic cystitis Patient Disposition: Home, Self-Care Instructions: Urinary Tract Infection in Women (ED), Abdominal Pain (ED) Additional Instructions: continue macrobid return for fevers, worsening pain, unable to eat or drink, or any other concerns labs and urine reassuring CT scan shows nonspecific enteritis FINDINGS: LUNG BASES: No acute airspace disease. LIVER, GALLBLADDER, AND BILIARY TREE: Status post partial resection right hepatic lobe. No focal enhancing mass in the liver. The main pulmonary arteries and main hepatic veins are patent. No intrahepatic biliary ductal dilatation. Gallbladder is absent/cholecystectomy. Common bile duct measures 7 mm. PANCREAS: Questionable 2 mm cyst in the head of the pancreas. No main pancreatic ductal dilatation. No peripancreatic fluid collection. No enhancing pancreatic mass. SPLEEN: 9 cm. No focal mass. Punctate calcification likely granuloma. ADRENAL GLANDS: No nodular lesions. KIDNEYS AND URETERS: No hydronephrosis. No gross renal mass. No gross nephrolithiasis. Normal enhancement pattern of the renal parenchyma. BLADDER: Fluid-filled with wall thickening and poor distention. GASTROINTESTINAL TRACT: Abundant stool throughout the large intestine. Appendix is normal. No intestinal obstruction pattern. Gas and fluid-filled mildly prominent small bowel loops in the left lower abdomen likely distal distal jejunal proximal ileal loops. No pneumatosis intestinalis. ABDOMINAL WALL: Small tiny fat-containing umbilical hernia. Metallic piercing, umbilical. LYMPH NODES: Nonspecific mild prominent mesenteric and inguinal. VASCULAR: No aneurysm or dissection, abdominal aorta. PELVIC VISCERA: Absent. OSSEOUS STRUCTURES: Multilevel thoracolumbar spondylosis without acute fracture or gross listhesis. Metallic piercing, nipple areola region CT/CT abdomen pelvis w IV con IMPRESSION: Mild enteritis in the correct clinical settings. No gross masses. Fleischner guidelines were followed. Prescriptions: No Action risperidone 0.5 mg tablet 0.5 mg PO BID Qty: 14 0RF epinephrine [EpiPen 2-Alec] 0.3 mg/0.3 mL auto-injector 0.3 mg IM Q4H PRN (Reason: anaphylaxis) Qty: 2 0RF hydrocodone-acetaminophen 2.5-325 mg tablet 1 tab PO TID PRN (Reason: pain) Qty: 4 0RF Rx Instructions: Partial Fill upon patient request. hydrocodone-acetaminophen 5-325 mg tablet 1 tab PO Q8H PRN (Reason: pain) Qty: 4 0RF Rx Instructions: Partial Fill upon patient request. prednisone 20 mg tablet 40 mg PO DAILY 5 Days Qty: 10 0RF albuterol sulfate 90 mcg/actuation aerosol powdr breath activated 2 inh inhalation Q4-6H PRN (Reason: shortness of breath or wheezing) Qty: 1 0RF dexamethasone 4 mg tablet 4 mg PO DAILY Qty: 3 0RF ondansetron 4 mg tablet,disintegrating 4 mg PO Q8H PRN (Reason: nausea and vomiting) Qty: 10 0RF Stand Alone Forms: Work/School Release Discharge Date/Time: 03/06/25 12:41 Print Language: Albanian
[2025-03-06 10:38] LABS: MANUAL DIFF FLAG NO
[2025-03-06 10:42] LABS: Appearance Urine Clear; Glucose Urine UA Negative (Negative); PH 6.5 (5.0-9.0); Specific Gravity - Urine 1.020 (1.005-1.025); UMIC TRIGGER UACC YES
[2025-03-06 10:47] LABS: UACC Culture Trigger YES
[2025-03-06 10:50] LABS: Hematocrit 37.7 % (37.0-47.0); Hemoglobin 12.8 g/dl (12.0-16.0); Imm Gran Abs Auto 0.01 X10*3/uL (0.00-0.03); Imm Gran Pct Auto 0.2 % (0.0-0.4); Lymphocytes Absolute Auto 1.4 X10*3/uL (1.2-4.9); Mean Corpuscular HGB Conc 34.0 g/dl (31.0-35.0); Mean Corpuscular Hemoglobin 31.8 pg (27.0-33.0); Mean Corpuscular Volume 93.5 fL (80.0-98.0); NRBC Abs Auto 0.000 X10*3/uL (0.0-0.012); NRBC Pct Auto 0.0 /100WBC (0.0-0.2); Platelet Count 205 X10*3/uL (160-400); Red Blood Count 4.03 X10*6/uL (4.20-5.50); White Blood Count 4.3 X10*3/uL (4.8-10.8)
[2025-03-06] MEDS: Lactated Ringers 1,000 ML 999 ML IV (10:53)
[2025-03-06 11:14] LABS: Alanine Aminotransferase 77 U/L (0-31); Albumin Level 4.4 g/dL (3.5-5.0); Alkaline Phosphatase 64 U/L (39-117); Anion Gap 12 (12-20); Aspartate Amino Transferase 48 U/L (5-31); Blood Urea Nitrogen 9 mg/dL (9-16); Calcium 9.0 mg/dL (8.4-10.2); Carbon Dioxide 23 mmol/L (22-29); Chloride 112 mmol/L (96-108); Creatinine Clr Calc Pharmacy 114.6; Estimated Glomerular Filt Rate > 60; Lipase 28 U/L (8-78); Potassium 4.0 mmol/L (3.3-5.1); Sodium 143 mmol/L (135-145); Total Protein 6.8 g/dL (6.5-8.0)
[2025-03-06] MEDS: iohexoL 350 MG/ML 100 ML INFUS..BTL IV (11:24)
[2025-03-06 12:40] VITALS: BP 115/54; PULSE 58; RESP 16; TEMP 36.1; O2SAT 100
== END 2025-03-06 12:41 | disposition home or self-care (01) ==
PROVIDERS: Emergency Provider Emergency Medicine; PCP Internal Medicine
DX: N30.01 Acute cystitis with hematuria (principal); R10.9 Unspecified abdominal pain; R11.2 Nausea with vomiting, unspecified; Z79.899 Other long term (current) drug therapy
CPT/HCPCS: 36415; 74177; 80053; 81001; 82248; 83690; 84443; 85025; 87086; 96374; 99283; 99285; J0696; J7120; Q9967

== ENCOUNTER → 2025-03-06 10:29 | Outpatient (BNV) | payer MEDICAID, SELFPAY | PROVIDERS: Emergency Provider Emergency Medicine; PCP Internal Medicine; Visit Provider Radiology Diagnostic Radiology | DX: K52.9 Noninfective gastroenteritis and colitis, unspecified (principal) | CPT/HCPCS: 74177 ==

== ENCOUNTER 2025-03-25 10:44 | Emergency (ER) | payer SELFPAY ==
--- NOTE | ~2025-03-25 | XR_ITS ---
EXAMINATION: XR CHEST CLINICAL INFORMATION: Coughing. pneumonia? COMPARISON: May 08, 2023. TECHNIQUE: Frontal view of the chest was obtained. FINDINGS: No hyperinflation. No consolidation, pleural effusion or pneumothorax. Cardiomediastinal silhouette size is normal. Mild multilevel spondylosis. Metallic piercing both nipple areola region. Multiple vascular clips overlapping the right lower hemithorax, unchanged. XR/XR chest 1V IMPRESSION: No acute airspace disease. Electronically signed by: Rich Mcpherson MD 03/25/2025 11:15 AM PAYAM
[2025-03-25 10:51] VITALS: BP 113/71; PULSE 86; RESP 18; TEMP 36.6; O2SAT 98; BMI 31.0
--- NOTE | 2025-03-25 10:53 | ED.GENADULT ---
HPI - General Adult General Chief complaint: Upper Respiratory Symptoms Stated complaint: Coughing, Weakness Time Seen by Provider: 03/25/25 12:22 Source: patient Mode of arrival: ambulatory Limitations: no limitations History of Present Illness ED Provider: Robert Bautista HPI narrative: [age] year female history of asthma presents to ED for coughing, nasal congestion, sneezing, sore throat body aches, chills, fatigue for the past couple of days. Patient had 1 episode of specks of blood walk coughing. Patient denies large blood clot or pink sputum. Patient denies any recent travel or recent surgery. Patient denies any history of blood clot, estrogen oral control use, chest pain, or shortness of breath. Related Data Previous Rx's ?Medication ?Instructions ?Recorded epinephrine 0.3 mg/0.3 mL 0.3 mg (0.3 mL) IM Q4H PRN 11/03/21 injection, auto-injector (EpiPen anaphylaxis #2 ea 2-Alec) risperidone 0.5 mg tablet 0.5 mg PO BID #14 tabs 06/12/22 albuterol sulfate 90 mcg/actuation 2 inh inhalation Q4-6H PRN 04/29/23 breath activated powder inhaler shortness of breath or wheezing #1 ea prednisone 20 mg tablet 40 mg (2 x 20 mg) PO DAILY 5 days 04/29/23 #10 tabs dexamethasone 4 mg tablet 4 mg PO DAILY #3 tabs 05/13/24 ondansetron 4 mg disintegrating 4 mg PO Q8H PRN nausea and 10/14/24 tablet vomiting #10 tabs hydrocodone 2.5 mg-acetaminophen 1 tab PO TID PRN pain #4 tabs 11/23/24 325 mg tablet hydrocodone 5 mg-acetaminophen 325 1 tab PO Q8H PRN pain #4 tabs 11/23/24 mg tablet albuterol sulfate 90 mcg/actuation 2 puff inhalation Q4-6H PRN 03/25/25 aerosol inhaler (Ventolin HFA) shortness of breath or wheezing #8.5 grams azithromycin 250 mg tablet See Rx Instructions PO .COMPLEX #6 03/25/25 tabs benzonatate 200 mg capsule 200 mg PO TID PRN cough #15 caps 03/25/25 prednisone 20 mg tablet 40 mg (2 x 20 mg) PO DAILY 5 days 03/25/25 #10 tabs Allergies Allergy/AdvReac Type Severity Reaction Status Date / Time aspirin (ASA) Allergy Unknown CRAP Verified 03/25/25 10:53 BLOOD bee pollen (BEE STINGS) Allergy Unknown ANAPHYLAXIS Verified 03/25/25 10:53 duloxetine (From CYMBALTA) Allergy Unknown SWELLING Verified 03/25/25 10:53 hydromorphone (From DILAUDID) Allergy Unknown ITCHY, Verified 03/25/25 10:53 VOMIT morphine (MORPHINE) Allergy Unknown SICK Verified 03/25/25 10:53 naproxen (NAPROXEN) Allergy Unknown CRAP Verified 03/25/25 10:53 BLOOD pregabalin (From LYRICA) Allergy Unknown SWELLING Verified 03/25/25 10:53 SEAFOOD Allergy Unknown UNKNOWN Uncoded 03/25/25 10:53 Review of Systems Review of Systems: coughing, congestion, sore throat, sneezing, bodyaches Yes all other systems are reviewed and are negative PMFSH Past Medical History Medical History Neuropathy GERD (gastroesophageal reflux disease) IBS (irritable bowel syndrome) delivery delivered Fibromyalgia Blindness of left eye Surgical History History of surgery of liver History of cholecystectomy H/O: hysterectomy History of tonsillectomy H/O eye surgery Social History Social History Household Members: Significant Other, Children and Other Household Members Other:: 2 dogs Alcohol intake: current Alcohol intake frequency: does not drink Alcohol type: hard liquor Patient Tobacco Use Status: Former Tobacco user Substance Use Type: Marijuana Advance Directives: No Advance Directives Information Provided: Yes Do you have a plan to hurt others: No Plan Physical Exam ED Vital Signs: Vital Signs - 24 hr 03/25/25 10:51 03/25/25 13:14 Temperature 97.8 F 97.8 F Pulse Rate 86 86 Respiratory Rate 18 18 Blood Pressure 113/71 113/71 Pulse Oximetry 98 98 Oxygen Delivery Method Room Air Room Air BMI result Body Mass Index 31.0 Const General: cooperative, healthy appearing, comfortable, no acute distress, well developed, alert, awake and Physically active Orientation/consciousness: patient oriented x3 HENMT Head: Yes normal to inspection, Yes No palpable skull fracture present, Yes normocephalic and Yes atraumatic Ears: hearing grossly normal bilaterally, external ears normal, TM's normal bilaterally, TM normal on the right, TM normal on the left, EAC's normal, mastoids normal and no periauricular adenopathy Throat: Yes posterior oropharynx normal, Yes tonsils normal and Yes uvula midline Neck Neck: Yes normal visual inspection, Yes full ROM, Yes no lymphadenopathy and Yes no meningeal signs Chest Chest palpation & inspection: normal inspection of the chest and normal palpation of entire chest wall Resp Effort & Inspection: normal respiratory effort and able to speak in complete sentences Auscultation: clear to auscultation bilaterally Cardio Jugular venous distension: no JVD Heart sounds: S1 normal heart sound present and S2 normal heart sound present GI Inspection: Yes normal to inspection Palpation (GI): Soft to palpation, not firm, nontender, no guarding and not rigid General: Yes no CVA tenderness Back/Spine/Pelvis Back: no CVA tenderness and No back tenderness Skin General skin exam: no rashes or lesions noted, elasticity normal and turgor normal Neuro General: patient oriented x3, gait normal, tone normal, moves all extremities, Normal light touch and pain sensation, no meningeal signs, no focal motor deficits, CN's II-XI intact bilaterally and normal sensation to monofilament Extrem Other: Bilateral lower extremity negative for swelling pitting edema or calf tenderness General: Yes normal to inspection, Yes full ROM and Yes capillary refill normal Psych Appearance: grossly normal, well kempt and not disheveled Course Course Course Narrative: RME: 39-year-old female presents to ED for coughing, sore throat, body aches, chills and fatigue. Patient states works in a [employer] and patient has a sick. X-ray swabs ordered Medical Decision Making Medical Decision Making MDM Narrative: 39 year female history of asthma presents to ED for URI symptoms with 1 episode of coughing up some specks of blood. Patient denies any chest pain or shortness of breath. Patient denies any leg swelling, pleurisy, control use, recent long travel, recent surgeries, recent trauma. Chest x-ray negative pneumonia. COVID influenza strep came back negative. Per score 1 with D-dimer of 207. Upper Normal limit is 240. D-dimer considered negative. Patient to be discharged with steroids, albuterol inhaler, azithromycin coughing medication. Not suspecting [place], PE, CHF, hypoxia, DVT, or any other life-threatening etiology. Patient explained worrisome signs and informed to return to the ED immediatley. Differential Diagnosis Differential Diagnoses: The differential diagnosis associated with the presentation includes (Pneumonia, PE, COVID influenza) Admission/Observation Consideration of admission/observation: Escalation of care including admission/observation considered Lab Data MDM Lab Attestation statement: I reviewed the patient's lab results. 03/25/25 11:20 03/25/25 11:20 Labs: Lab Results 03/25/25 03/25/25 Range/Units 11:19 11:20 WBC 4.2 L (4.8-10.8) X10*3/uL RBC 4.26 (4.20-5.50) X10*6/uL Hgb 13.6 (12.0-16.0) g/dl Hct 39.7 (37.0-47.0) % MCV 93.2 (80.0-98.0) fL MCH 31.9 (27.0-33.0) pg MCHC 34.3 (31.0-35.0) g/dl RDW 12.8 (11.0-16.0) % Plt Count 194 (160-400) X10*3/uL MPV 9.5 (9.4-12.3) fL Immature Gran % (Auto) 0.0 (0.0-0.4) % Neut % (Auto) 71.1 (45-73) % Lymph % (Auto) 18.0 L (20-40) % [place] % (Auto) 9.7 (2-11) % Eos % (Auto) 0.7 (0-4) % Baso % (Auto) 0.5 (0-2) % Lymph # (Auto) 0.8 L (1.2-4.9) X10*3/uL [place] # (Auto) 0.4 (0.1-1.2) X10*3/uL Eos # (Auto) 0.0 (0.0-0.4) X10*3/uL Baso # (Auto) 0.0 (0.0-0.2) X10*3/uL Abs Immat Gran (auto) 0.00 (0.00-0.03) X10*3/uL Absolute Neuts (auto) 3.0 (2.0-8.3) x10*3/uL Absolute Nucleated RBC 0.000 (0.0-0.012) X10*3/uL Nucleated RBC % (auto) 0.0 (0.0-0.2) /100WBC PT 12.4 (11.2-13.5) SEC INR 1.0 (0.9-1.1) APTT 28.5 (26.7-34.1) SEC D-Dimer High Sensitivty 207 NG/ML Sodium 140 (135-145) mmol/L Potassium 3.7 (3.3-5.1) mmol/L Chloride 110 H (96-108) mmol/L Carbon Dioxide 25 (22-29) mmol/L Anion Gap 9 L (12-20) BUN 6 L (9-16) mg/dL Creatinine 0.70 (0.5-1.4) mg/dL Estim Creat Clear Calc 102.6 Estimated GFR > 60 Random Glucose 92 (60-115) mg/dL Calcium 9.0 (8.4-10.2) mg/dL Total Bilirubin 0.8 (0.0-1.0) mg/dL AST 44 H (5-31) U/L ALT 58 H (0-31) U/L Alkaline Phosphatase 60 (39-117) U/L Total Protein 7.5 (6.5-8.0) g/dL Albumin 4.8 (3.5-5.0) g/dL COVID-19 (RAUL) Negative (Negative) COVID-19 Clin Com See Note Influenza Type A (DONNA) Negative (Negative) Influenza Type B (DONNA) Negative (Negative) Influenza A & B Note See Note S. pyogenes GrpA DONNA Negative (Negative) Independent Interpretation I performed an independent interpretation of an: Plain X-Ray Radiology Impression Discussion of test interpretation with radiology: I have reviewed the radiologist's reading. Independent Historian Clinical information obtained from an independent historian. History obtained from or confirmed by: Other (patient) Prescription Management I considered prescription management with: Antibiotic Discharge Plan Discharge Clinical Impression: Asthma Patient Disposition: Home, Self-Care Instructions: Asthma (ED) Additional Instructions: Recommend follow-up with primary care provider. Your labs or imaging came back reassuring. Return to the ED immediately for any chest pain, shortness of breath, coughing up large blood clots, leg swelling, calf pain, chest pain on inspiration, abdominal pain, nausea, vomiting, or any other concerning symptoms. Prescriptions: New albuterol sulfate [Ventolin HFA] 90 mcg/actuation HFA aerosol inhaler 2 puff inhalation Q4-6H PRN (Reason: shortness of breath or wheezing) Qty: 8.5 0RF prednisone 20 mg tablet 40 mg PO DAILY 5 Days Qty: 10 0RF azithromycin 250 mg tablet See Rx Instructions .ROUTE .COMPLEX Qty: 6 0RF Rx Instructions: For 250 mg dose pack: take 500 mg today (day 1), then 250 mg for 4 days (days 2-5) benzonatate 200 mg capsule 200 mg PO TID PRN (Reason: cough) Qty: 15 0RF No Action risperidone 0.5 mg tablet 0.5 mg PO BID Qty: 14 0RF epinephrine [EpiPen 2-Alec] 0.3 mg/0.3 mL auto-injector 0.3 mg IM Q4H PRN (Reason: anaphylaxis) Qty: 2 0RF hydrocodone-acetaminophen 2.5-325 mg tablet 1 tab PO TID PRN (Reason: pain) Qty: 4 0RF Rx Instructions: Partial Fill upon patient request. hydrocodone-acetaminophen 5-325 mg tablet 1 tab PO Q8H PRN (Reason: pain) Qty: 4 0RF Rx Instructions: Partial Fill upon patient request. prednisone 20 mg tablet 40 mg PO DAILY 5 Days Qty: 10 0RF albuterol sulfate 90 mcg/actuation aerosol powdr breath activated 2 inh inhalation Q4-6H PRN (Reason: shortness of breath or wheezing) Qty: 1 0RF dexamethasone 4 mg tablet 4 mg PO DAILY Qty: 3 0RF ondansetron 4 mg tablet,disintegrating 4 mg PO Q8H PRN (Reason: nausea and vomiting) Qty: 10 0RF Referrals: Esequiel Young MD [Primary Care Provider, Internal Medicine] - 3 days Referral Note: URI, Asthma Clinical Impression: Asthma Stand Alone Forms: Work/School Release Interventions: ED Discharge Assessment Last Done: 03/25/25 13:14 Discharge Date/Time: 03/25/25 13:14 Print Language: Welsh
[2025-03-25 11:24] LABS: MANUAL DIFF FLAG NO
[2025-03-25 11:30] LABS: Hematocrit 39.7 % (37.0-47.0); Hemoglobin 13.6 g/dl (12.0-16.0); Imm Gran Abs Auto 0.00 X10*3/uL (0.00-0.03); Imm Gran Pct Auto 0.0 % (0.0-0.4); Lymphocytes Absolute Auto 0.8 X10*3/uL (1.2-4.9); Mean Corpuscular HGB Conc 34.3 g/dl (31.0-35.0); Mean Corpuscular Hemoglobin 31.9 pg (27.0-33.0); Mean Corpuscular Volume 93.2 fL (80.0-98.0); NRBC Abs Auto 0.000 X10*3/uL (0.0-0.012); NRBC Pct Auto 0.0 /100WBC (0.0-0.2); Platelet Count 194 X10*3/uL (160-400); Red Blood Count 4.26 X10*6/uL (4.20-5.50); White Blood Count 4.2 X10*3/uL (4.8-10.8)
[2025-03-25 11:31] LABS: INTERNATIONAL NORM RATIO 1.0 (0.9-1.1); Prothrombin Time 12.4 SEC (11.2-13.5)
[2025-03-25 11:34] LABS: Partial Thromboplastin Time 28.5 SEC (26.7-34.1)
[2025-03-25 11:37] LABS: IDNOW Serial# 152EDE1D; Strep A Nucleic Acid Negative (Negative)
[2025-03-25 11:42] LABS: Alanine Aminotransferase 58 U/L (0-31); Albumin Level 4.8 g/dL (3.5-5.0); Alkaline Phosphatase 60 U/L (39-117); Anion Gap 9 (12-20); Aspartate Amino Transferase 44 U/L (5-31); Blood Urea Nitrogen 6 mg/dL (9-16); Calcium 9.0 mg/dL (8.4-10.2); Carbon Dioxide 25 mmol/L (22-29); Chloride 110 mmol/L (96-108); Creatinine Clr Calc Pharmacy 102.6; Estimated Glomerular Filt Rate > 60; Potassium 3.7 mmol/L (3.3-5.1); Sodium 140 mmol/L (135-145); Total Protein 7.5 g/dL (6.5-8.0)
[2025-03-25 11:45] LABS: COVID-19 Test Negative (Negative); IDNOW Serial# 08D9AD1C
[2025-03-25 11:51] LABS: IDNOW Serial# 58CA691E; Influenza B2 Negative (Negative)
[2025-03-25 12:19] LABS: D Dimer High Sensitivity 207 NG/ML
[2025-03-25 13:14] VITALS: BP 113/71; PULSE 86; RESP 18; TEMP 36.6; O2SAT 98
== END 2025-03-25 13:14 | disposition home or self-care (01) ==
PROVIDERS: Physician Assistant; Emergency Provider Emergency Medicine; PCP Internal Medicine
DX: J45.909 Unspecified asthma, uncomplicated (principal); R05.9 Cough, unspecified; J02.9 Acute pharyngitis, unspecified; R68.83 Chills (without fever); Z03.818 Encounter for observation for suspected exposure to other biological agents ruled out
CPT/HCPCS: 36415; 71045; 80053; 85025; 85379; 85610; 85730; 87502; 87635; 87651; 99282; 99283

== ENCOUNTER → 2025-03-25 10:52 | Outpatient (BNV) | payer MEDICAID, SELFPAY | PROVIDERS: PCP Internal Medicine; Visit Provider Radiology Diagnostic Radiology | DX: R05.9 Cough, unspecified (principal) | CPT/HCPCS: 71045 ==